=== PATIENT | male | born 1965 | race Caucasian/White ===

== ENCOUNTER 2022-05-04 14:17 | Outpatient (REF) | payer MEDICARE, MEDICAID, SELFPAY ==
[2022-05-04 14:41] LABS: Basophils Absolute Auto 0.04 K/uL (0.00-0.30); Basophils Percent Auto 0.6 % (0.0-3.0); Eosinophils Absolute Auto 0.15 K/uL (0.00-0.50); Eosinophils Percent Auto 2.4 % (0.0-7.0); Hematocrit 49.6 % (37.0-53.0); Hemoglobin* 16.7 gm/dL (13.5-17.5); Immature Granulocytes Abs Auto 0.01 K/uL (0.00-0.30); Immature Granulocytes Pct Auto 0.2 %; Lymphocytes Absolute Auto 1.73 K/uL (0.90-2.90); Lymphocytes Percent Auto 27.8 % (20-44); Mean Corpuscular HGB Conc 34 gm/dL (32-36); Mean Corpuscular Hemoglobin 29 pg (26-34); Mean Corpuscular Volume 87 fL (80-100); Monocytes Percent Auto 7.1 % (0.0-11.0); Neutrophils Absolute Auto 3.85 K/uL (1.7-7.0); Neutrophils Percent Auto 61.9 % (42.0-72.0); Platelet Count* 177 K/uL (140-440); RDW Coefficient of Variation % 14.1 % (11.5-15.5); Red Blood Count 5.69 m/uL (4.30-5.90); White Blood Count* 6.22 K/uL (4.50-11.00)
[2022-05-04 14:53] LABS: Slide Review Reflex No
[2022-05-04 15:16] LABS: Chloride* 98 mmol/L (96-114); Potassium* 5.1 mmol/L (3.6-5.1); Sodium* 132 mmol/L (135-149)
[2022-05-04 15:19] LABS: Blood Urea Nitrogen* 31 mg/dL (7-30); Carbon Dioxide* 25 mmol/L (20-32); Creatinine* 1.1 mg/dL (0.5-1.5); Estimated Glomerular Filt Rate 79 ml/min
[2022-05-04 15:20] LABS: Calcium* 9.3 mg/dL (8.4-10.6); Magnesium* 1.6 mg/dL (1.5-2.6)
[2022-05-04 15:27] LABS: Glucose* 408 mg/dL (60-115)
[2022-05-04 15:49] LABS: INR 2.05 (0.91-1.10); Prothrombin Time 24.2 Seconds
== END 2022-05-04 14:18 | disposition home or self-care (01) ==
LOC: NPINS 14:17
PROVIDERS: PCP Family Medicine
DX: E66.01 Morbid (severe) obesity due to excess calories (principal); E11.40 Type 2 diabetes mellitus with diabetic neuropathy, unspecified; I50.9 Heart failure, unspecified; J44.9 Chronic obstructive pulmonary disease, unspecified
CPT/HCPCS: 80048; 83735; 85025; 85610

== ENCOUNTER 2022-12-29 10:33 | Emergency (ER) | payer MEDICARE, MEDICAID, SELFPAY ==
[2022-12-29 11:07] VITALS: PULSE 74; RESP 22; TEMP 35.7; O2SAT 96; BMI 41.1
--- NOTE | 2022-12-29 11:42 | CRLHL7_ITS ---
For Patients: As a result of the Century Cures Act, medical imaging exams and procedure reports are released immediately into your electronic medical record. You may view this report before your referring provider. If you have questions, please contact your health care provider. INDICATION: Vomiting, abdominal pain, renal insufficiency. History of hernia repair and implanted heart pump. TECHNIQUE: CT of the abdomen and pelvis without intravenous contrast. Coronal and sagittal reconstructions. COMPARISON: None. FINDINGS: Small left hepatic cyst. Probable focal fatty infiltration about the falciform ligament. Calcified splenic granulomas. Cholelithiasis without evidence of gallbladder inflammation. No biliary dilation. The unenhanced pancreas and adrenal glands are normal in appearance. Small bilateral renal hypodensities are likely cysts. No hydronephrosis or ureteral dilation. No obstructing urinary calculi identified. The bladder is normal in appearance. Nonenlarged prostate gland. No small bowel dilation. Mild amount of stool throughout the colon. Negative appendix. No intraperitoneal free air or fluid. No lymphadenopathy. Aortoiliac vascular calcifications. Status post ventral hernia repair. Cardiomegaly. Partially visualized left ventricular assist device which causes streak artifact in the upper abdomen. Calcified granulomas right lower lobe. The lung bases are otherwise clear. Degenerative changes of the spine. Minimal retrolisthesis of L2 on L3, L3 on L4, L4 on L5, and L5 on S1. Chronic appearing anterior wedging of multiple lower thoracic vertebral bodies. IMPRESSION: 1. No acute findings in the abdomen or pelvis on this noncontrast exam. 2. Cholelithiasis. 3. Cardiomegaly. Please note that all CT scans at this facility use dose modulation, iterative reconstruction, and/or weight-based dosing when appropriate to reduce radiation dose to as low as reasonably achievable. Dictated by Lulu Stevenson MD @ 12/29/2022 2:37:32 PM (Electronically Signed)
--- NOTE | 2022-12-29 11:50 | ED_ITS ---
HPI - General Adult General Chief complaint: Nausea/Vomiting Stated complaint: Vomiting, weak Time Seen by Provider: 12/29/22 11:24 History of Present Illness HPI narrative: This is a 57-year-old male with a complex past medical history. He has cardiomyopathy (probably ischemic cardiomyopathy?) With LVAD. LVAD was placed several months ago at [facility]. He is on a waiting list for heart transplant. He also has type 2 diabetes with peripheral neuropathy, chronic kidney disease, he previous stroke, GERD, elevated BMI, history of coronary disease with AK, sleep apnea, restless legs, COPD, hypertension, hyperlipidemia, chronic low back pain. He has been sick for about 7-10 days. Symptoms have been predominantly nausea and vomiting. He has also had some generalized abdominal pain. Symptoms started middle of last week. He does know what brought them on. No associated diarrhea. In fact he has not had a bowel movement since perhaps 4 days ago. That BM was ?black? but not bloody. He has not had any subsequent BMs or bloody output from his rectum. He has been getting sicker as the days go by. It has gotten to the point where he is not able to take most of his prescription meds. He says he thinks he is able to keep the warfarin down. He has not been able to keep much fluid down. He has not had a fever. No cough. He is mildly weak. No new chest pain or new shortness of breath. No new swelling in his legs. His LVAD appears to be functioning normally. No signs of infection around the LVAD catheter line. He was seen in the ER in [facility] last week on 12/22. Labs there included Sodium 140, potassium 4.8, chloride 100, bicarb 25, BUN 26, creatinine 1.7, glucose 226 Lipase 17, bilirubin 0.9, ALT 16, AST 17 INR 3.0 BNP 239 WBC 8.8, hemoglobin 19.1, platelet count 127 He was discharged home from [place]. Since discharge he has been getting worse. He has had more repetitive retching and vomiting. He has not been able to eat drink much for the past few days. He has not been able to take his meds in perhaps 3 days. He thinks he has possibly been able to swallow the warfarin. He finally came into the ER today with his FREIGHT SORTER and his mother because of ongoing vomiting. He somewhat dizzy and lightheaded. They are concerned he is having worsening dehydration. Related Data Home Medications Medication Instructions Recorded Confirmed aspirin 81 mg tablet,delayed 81 mg PO QDAY 02/10/22 08/10/22 release Home Oxygen 03/20/22 11/02/22 potassium chloride 10 mEq 30 meq PO BID 03/20/22 11/02/22 capsule,extended release warfarin 1 mg tablet 5 mg PO QDAY 03/20/22 11/02/22 dapagliflozin propanediol 10 mg 10 mg PO QAM 04/24/22 08/10/22 tablet (Farxiga) metolazone 5 mg tablet 5 mg PO QDAY 05/04/22 11/02/22 amiodarone 200 mg tablet 400 mg PO QDAY 08/10/22 08/10/22 lorazepam 1 mg tablet 1 - 2 mg PO BID PRN sleep 08/10/22 11/02/22 torsemide 20 mg tablet 40 mg PO BID 08/10/22 11/02/22 ammonium lactate 12 % lotion topical 11/02/22 11/02/22 carvedilol 25 mg tablet 25 mg PO BID 11/02/22 11/02/22 rosuvastatin 20 mg tablet 20 mg PO QPM 11/02/22 11/02/22 sacubitril 97 mg-valsartan 103 mg 1 tab PO BID 11/02/22 11/02/22 tablet (Entresto) Previous Rx's Medication Instructions Recorded omeprazole 20 mg capsule,delayed 20 mg PO QDAY #90 caps 10/25/21 release pen needle, diabetic 31 gauge x #400 ea 06/06/2208/29 (BD Ultra-Fine Short Pen Needle) gabapentin 300 mg capsule 900 mg (3 x 300 mg) PO TID #270 08/10/22 caps insulin aspart U-100 100 unit/mL 16 unit (0.16 mL) subcut TID #45 mL 08/10/22 (3 mL) subcutaneous pen (Novolog FlexPen U-100 Insulin aspart) semaglutide 0.25 mg or 0.5 mg (2 0.25 mg (0.4 mL) subcut QWEEK #3 mL 08/10/22 mg/3 mL) subcutaneous pen injector (Ozempic) spironolactone 25 mg tablet 12.5 mg (1/2 x 25 mg) PO QDAY #45 09/06/22 tabs insulin glargine 100 unit/mL (3 60 unit (0.6 mL) subcut QHS #60 mL 10/04/22 mL) subcutaneous pen (Lantus Solostar U-100 Insulin) albuterol sulfate 90 mcg/actuation 2 puff inhalation Q4H PRN 10/09/22 aerosol inhaler shortness of breath or wheezing #6.7 grams trazodone 100 mg tablet 200 - 300 mg (2 - 3 x 100 mg) PO 10/09/22 QHS PRN sleep #90 tabs hydrocodone 10 mg-acetaminophen 1 tab PO Q4H PRN pain #150 tabs 12/07/22 325 mg tablet Allergies Allergy/AdvReac Type Severity Reaction Status Date / Time clonidine Allergy Severe Cardiac Verified 11/02/22 08:50 Arrest procaine Allergy Severe Swelling Verified 11/02/22 08:50 of Lip/Tongue/Throat [facility] Medical History (Updated 12/29/22 @ 13:49 by Rafael Reyes MD) Onychomycosis ?B35.1 - Tinea unguium (ICD-10) LVAD (left ventricular assist device) present ?Z95.811 - Presence of heart assist device (ICD-10) Infarction of testicle ?N50.1 - Vascular disorders of male genital organs (ICD-10) History of AK (myocardial infarction) ?I25.2 - Old myocardial infarction (ICD-10) Dilated cardiomyopathy ?I42.0 - Dilated cardiomyopathy (ICD-10) Morbid obesity with BMI of 40.0-44.9, adult ?E66.01 - Morbid (severe) obesity due to excess calories (ICD-10) ?Z68.41 - Body mass index [BMI] 40.0-44.9, adult (ICD-10) Ascending aorta dilatation ?I77.810 - Thoracic aortic ectasia (ICD-10) Ischemic cerebrovascular accident (CVA) (03/11/21) ?I63.9 - Cerebral infarction, unspecified (ICD-10) Diabetic neuropathy ?E11.40 - Type 2 diabetes mellitus with diabetic neuropathy, unspecified (ICD-10) History of adenomatous polyp of colon ?Z86.010 - Personal history of colonic polyps (ICD-10) Primary aldosteronism ?E26.09 - Other primary hyperaldosteronism (ICD-10) Macular degeneration ?H35.30 - Unspecified macular degeneration (ICD-10) Idiopathic ventricular tachycardia ?I47.2 - Ventricular tachycardia (ICD-10) History of deep vein thrombosis (DVT) of lower extremity (03/25/20) ?Z86.718 - Personal history of other venous thrombosis and embolism (ICD-10) SALOMÓN (generalized anxiety disorder) ?F41.1 - Generalized anxiety disorder (ICD-10) GERD (gastroesophageal reflux disease) ?K21.9 - Gastro-esophageal reflux disease without esophagitis (ICD-10) RLS (restless legs syndrome) ?G25.81 - Restless legs syndrome (ICD-10) ASCVD (arteriosclerotic cardiovascular disease) ?I25.10 - Atherosclerotic heart disease of [place] coronary artery without angina pectoris (ICD-10) BRYANT (obstructive sleep apnea) ?G47.33 - Obstructive sleep apnea (adult) (pediatric) (ICD-10) COPD (chronic obstructive pulmonary disease) ?J44.9 - Chronic obstructive pulmonary disease, unspecified (ICD-10) Hyperlipidemia ?E78.5 - Hyperlipidemia, unspecified (ICD-10) Hypertension ?I10 - Essential (primary) hypertension (ICD-10) Insomnia ?G47.00 - Insomnia, unspecified (ICD-10) Type 2 diabetes mellitus ?E11.9 - Type 2 diabetes mellitus without complications (ICD-10) CHF (congestive heart failure) ?I50.9 - Heart failure, unspecified (ICD-10) Chronic low back pain ?M54.50 - Low back pain, unspecified (ICD-10) ?G89.29 - Other chronic pain (ICD-10) Surgical History (Updated 12/01/21 @ 15:02 by Rupali Dee) History of cardiac catheterization ?Z98.890 - Other specified postprocedural states (ICD-10) History of umbilical hernia repair (01/24/17) ?Z98.890 - Other specified postprocedural states (ICD-10) ?Z87.19 - Personal history of other diseases of the digestive system (ICD-10) History of implantable cardioverter-defibrillator (ICD) placement (10/03/18) ?Z95.810 - Presence of automatic (implantable) cardiac defibrillator (ICD-10) History of arthroscopy of left shoulder ?Z98.890 - Other specified postprocedural states (ICD-10) History of open reduction and internal fixation (ORIF) procedure ?Z98.890 - Other specified postprocedural states (ICD-10) History of arthroscopic knee surgery ?Z98.890 - Other specified postprocedural states (ICD-10) Family History (Updated 12/01/21 @ 15:16 by Rupali Dee) Father Diabetes Lung cancer Coronary artery disease Sister Diabetes Mother High blood pressure GERD (gastroesophageal reflux disease) Social History (Updated 05/04/22 @ 22:54 by Luciano Candelaria MD) Narrative: . 2 children.1/2 ppd smoker. No EtOH. Smoking Status: Current some day smoker What tobacco products do you use: cigarettes How often do you have a drink containing alcohol: never AUDIT-C Alcohol total score: 0 Non-prescribed substance use: denies use Little interest or pleasure in doing things: not at all Feeling down, depressed, or hopeless: not at all Exam Narrative: Exam Narrative: Constitutional: Appears well-developed and well-nourished. Alert. Conversant. looks uncomfortable, retching, but not vomiting. HENT: Head: Atraumatic. Nose: Nose normal. Mouth/Throat: Oral mucosa is clear but dry. no trismus. Pharynx normal. Tonsils symmetric. No tonsillar enlargement, erythema, or exudate. Eyes: Conjunctivae normal. EOM normal. Pupils equal, round, and reactive to light. No scleral icterus. Neck: Normal range of motion. Neck supple. No tracheal deviation present. Cardiovascular: Normal rate, regular rhythm. Audible LVAD home with stethoscope. His catheter is located in the regi Xiphoid region. Skin on the catheter looks good. No gallop. No friction rub. No murmur heard. Symmetric radial artery pulses Pulmonary/Chest: Effort normal. No stridor. No respiratory distress. No wheezes. No rales. No rhonchi . No tenderness. Abdominal: Soft. Bowel sounds normal. No distension. No mass. Diffuse tenderness. No rebound. No guarding. Non tympanic. Healed periumbilical scar from umbilical hernia repair. No palpable hernia. Musculoskeletal: RUE: Normal range of motion. No tenderness. No deformity LUE: Normal range of motion. No tenderness. No deformity RLE: Normal range of motion. 1+ edema. No tenderness. No deformity LLE: Normal range of motion. 1+ edema. No tenderness. No deformity Lymph: No cervical adenopathy. Neurological: Alert and oriented to person, place, and time. Normal strength. CN II-VII intact. No sensory deficit. GCS eye subscore is 4. GCS verbal subscore is 5. GCS motor subscore is 6. Normal coordination Skin: Skin is warm and dry. No rash noted. No pallor. Normal capillary refill. Psychiatric: Normal mood. Normal affect. Const: Vital Signs, click to edit/add: Vital Signs - 24 hr 12/29/22 11:07 Temperature 96.2 F L Pulse Rate [Pulse Oximeter] 74 Respiratory Rate 22 Pulse Oximetry 96 Oxygen Delivery Me thod Room Air Course Vital Signs Vital signs: Initial Vital Signs Temperature 96.2 F L 12/29/22 11:07 Temperature Source Temporal Artery Scan 12/29/22 11:07 Pulse Rate 74 12/29/22 11:07 Respiratory Rate 22 12/29/22 11:07 Pulse Oximetry 96 12/29/22 11:07 Oxygen Delivery Method Room Air 12/29/22 11:07 Vital Signs Temperature 96.2 F L 12/29/22 11:07 Pulse Rate 74 12/29/22 11:07 Respiratory Rate 22 12/29/22 11:07 Pulse Oximetry 96 12/29/22 11:07 Oxygen Delivery Method Room Air 12/29/22 11:07 Temperature 96.2 F L 12/29/22 11:07 Pulse Rate 74 12/29/22 11:07 Respiratory Rate 22 12/29/22 11:07 Pulse Oximetry 96 12/29/22 11:07 Oxygen Delivery Method Room Air 12/29/22 11:07 Medical Decision Making [facility] Narrative Medical decision making narrative: 57-year-old male with a complex past history and current LVAD implanted presents to the ER today with about 10 days of nausea and vomiting and 3 days of protracted retching and vomiting without ability to stay hydrated or take any of his meds. 1. Renal. Despite reported nausea and vomiting, he does not have any acute kidney injury. Potassium normal. Creatinine is actually come down compared to last week. Was 1.7, now 1.2. 2. Endocrine. Blood sugar elevated at 213. Anion gap normal. Bicarb normal. No evidence for DKA or nonketotic hyperosmolar syndrome causing vomiting. 3. Hepatic. LFTs normal. Lipase normal. Alcohol negative. 4. Cardiac. Does have known LVAD. Troponin minimally detectable at 0.06. No active chest pain. BNP is abnormal at 3250. No hypoxia or shortness of breath at this time. No clear signs of heart failure. Discussed with LVAD service and heart failure specialist, Dr. Ray. They would agree with appropriately aggressive IV hydration based on clinical presentation. No risk to adequate IV fluids, even a few L, if necessary. 1 L IV fluid bolus administered here in the ER. 5. Gi. With protracted vomiting and diffuse pain, differential would include gastritis, gastroparesis, also surgical pathology such as bowel obstruction, perforation, abscess, among others. I ordered a CT scan abdomen pelvis for further evaluation. Initially ordered a noncontrast with concern that he would likely have an acute kidney injury. Noncontrast CT was pending formal i nterpretation the time of this dictation. 6. Heme. INR pending at the time this dictation. Hemoglobin is elevated at approximately 19. Suspect hemoconcentration from dehydration. I discussed with the heart failure team from [facility] and with the heart failure specialist, Dr. Ray. They agree with this patient's protracted nausea and vomiting, inability to take his meds he will need to be admitted. His LVAD could not reasonably be managed here at [place] [facility] agree with the plan to transfer to [place]. Lab Data Labs: Lab Results 12/29/22 Range/Units 12:38 WBC 8.65 (4.50-11.00) K/uL RBC 6.43 H (4.30-5.90) m/uL Hgb 18.9 H (13.5-17.5) gm/dL Hct 56.1 H (37.0-53.0) % MCV 87 (80-100) fL MCH 29 (26-34) pg MCHC 34 (32-36) gm/dL RDW Coeff of Mireya 16.5 H (11.5-15.5) % Plt Count 147 (140-440) K/uL Neut % (Auto) 73.2 H (42.0-72.0) % Lymph % (Auto) 17.8 L (20-44) % [place] % (Auto) 7.4 (0.0-11.0) % Eos % (Auto) 0.8 (0.0-7.0) % Baso % (Auto) 0.7 (0.0-3.0) % Neut # (Auto) 6.30 (1.7-7.0) K/uL Lymph # (Auto) 1.50 (0.90-2.90) K/uL [place] # (Auto) 0.60 (0.00-0.90) K/UL Eos # (Auto) 0.07 (0.00-0.50) K/uL Baso # (Auto) 0.06 (0.00-0.30) K/uL Abs Immat Gran (auto) 0.01 (0.00-0.30) K/uL Imm/Tot Granulo (auto) 0.1 % Sodium 137 (135-149) mmol/L Potassium 4.6 (3.6-5.1) mmol/L Chloride 101 (96-114) mmol/L Carbon Dioxide 23 (20-32) mmol/L Anion Gap 13 (7-15) mEq/L BUN 21 (7-30) mg/dL Creatinine 1.2 (0.5-1.5) mg/dL Estimated Creat Clear 78.97 Estimated GFR 71 ml/min Glucose 213 H (60-115) mg/dL Lactate 2.1 H (0.5-1.9) mmol/L Calcium 10.0 (8.4-10.6) mg/dL Total Bilirubin 1.4 (0.1-1.5) mg/dL AST 31 (12-35) U/L ALT 24 (4-50) U/L Alkaline Phosphatase 91 (40-150) U/L Troponin I 0.06 H* (0.01-0.04) ng/mL NT-Pro-B Natriuret Pep 3350 pg/mL Total Protein 7.2 (6.0-8.3) g/dL Albumin 4.4 (3.3-5.0) g/dL Lipase 73 (23-300) U/L Ethyl Alcohol < 0.01 L (0.01-0.03) % Discharge Plan Discharge Clinical Impression: Acute dehydration, Nausea & vomiting, Abdominal pain Prescriptions: No Action aspirin 81 mg tablet,delayed release (DR/EC) 81 mg PO QDAY potassium chloride 10 mEq capsule, extended release 30 meq PO BID warfarin 1 mg tablet 5 mg PO QDAY Rx Instructions: 5 mg S,M,T,Th,F,Sat Wed 4 mg lorazepam 1 mg tablet 1 - 2 mg PO BID PRN (Reason: sleep) Rx Instructions: take 1-2 mg by mouth 2 times daily if needed for Anxiety. Typically 1 mg in the AM and 2 mg in the evening (DME) Home Oxygen Misc See Rx Instructions .Route Rx Instructions: 4 liters HS Farxiga 10 mg tablet 10 mg PO QAM metolazone 5 mg tablet 5 mg PO QDAY amiodarone 200 mg tablet 400 mg PO QDAY insulin aspart U-100 [Novolog FlexPen U-100 Insulin] 100 unit/mL (3 mL) insulin pen 16 unit subcut TID Qty: 45 3RF gabapentin 300 mg capsule 900 mg PO TID Qty: 270 2RF Ozempic 0.25 mg or 0.5 mg (2 mg/3 mL) pen injector 0.25 mg subcut QWEEK Qty: 3 1RF Rx Instructions: for 4 weeks then increase to 0.5 mg rosuvastatin 20 mg tablet 20 mg PO QPM ammonium lactate 12 % lotion topical carvedilol 25 mg tablet 25 mg PO BID Rx Instructions: must administer with a meal/food Entresto 97-103 mg tablet 1 tab PO BID omeprazole 20 mg capsule,delayed release(DR/EC) 20 mg PO QDAY Qty: 90 2RF (DME) pen needle, diabetic [BD Ultra-Fine Short Pen Needle] 31 gauge x 5/16 needle See Rx Instructions .Route Qty: 400 1RF Rx Instructions: Use QID torsemide 20 mg tablet 40 mg PO BID spironolactone 25 mg tablet 12.5 mg PO QDAY Qty: 45 3RF insulin glargine [Lantus Solostar U-100 Insulin] 100 unit/mL (3 mL) insulin pen 60 unit subcut QHS Qty: 60 3RF albuterol sulfate 90 mcg/actuation HFA aerosol inhaler 2 puff inhalation Q4H PRN (Reason: shortness of breath or wheezing) Qty: 6.7 8RF trazodone 100 mg tablet 200 - 300 mg PO QHS PRN (Reason: sleep) Qty: 90 11RF hydrocodone-acetaminophen 10-325 mg tablet 1 tab PO Q4H PRN (Reason: pain) Qty: 150 0RF Follow Up/Referrals: Luciano Candelaria MD [Primary Care Provider] -
--- NOTE | 2022-12-29 12:05 | PC.NURSE ---
Patient changed LVAD batteries.
--- NOTE | 2022-12-29 12:07 | PC.NURSE ---
Clinical Investigator unsuccessful with IV start. Patient is requesting US guided placement d/t history of difficult starts. Clinical Investigator did get flash, but unable to advance catheter and the vein on the R forearm blew. Anesthesia called for assistance in IV placement.
[2022-12-29 12:45] LABS: Lactate* 2.1 mmol/L (0.5-1.9)
[2022-12-29] MEDS: 0.9 % SODIUM CHLORIDE 1000 ml 1,000 ML IV (12:45)
[2022-12-29 12:47] LABS: Basophils Absolute Auto 0.06 K/uL (0.00-0.30); Basophils Percent Auto 0.7 % (0.0-3.0); Eosinophils Absolute Auto 0.07 K/uL (0.00-0.50); Eosinophils Percent Auto 0.8 % (0.0-7.0); Hematocrit 56.1 % (37.0-53.0); Hemoglobin* 18.9 gm/dL (13.5-17.5); Immature Granulocytes Abs Auto 0.01 K/uL (0.00-0.30); Immature Granulocytes Pct Auto 0.1 %; Lymphocytes Percent Auto 17.8 % (20-44); Mean Corpuscular HGB Conc 34 gm/dL (32-36); Mean Corpuscular Hemoglobin 29 pg (26-34); Mean Corpuscular Volume 87 fL (80-100); Monocytes Percent Auto 7.4 % (0.0-11.0); Neutrophils Percent Auto 73.2 % (42.0-72.0); Platelet Count* 147 K/uL (140-440); RDW Coefficient of Variation % 16.5 % (11.5-15.5); Red Blood Count 6.43 m/uL (4.30-5.90); White Blood Count* 8.65 K/uL (4.50-11.00)
[2022-12-29] MEDS: ONDANSETRON 2 MG/ML inj 4 MG IVP (12:47)
[2022-12-29 12:48] LABS: Slide Review Reflex No
[2022-12-29 13:02] LABS: Albumin* 4.4 g/dL (3.3-5.0)
[2022-12-29 13:03] LABS: Chloride* 101 mmol/L (96-114); Potassium* 4.6 mmol/L (3.6-5.1); Sodium* 137 mmol/L (135-149)
[2022-12-29 13:05] LABS: Anion Gap 13 mEq/L (7-15); Aspartate Amino Transferase* 31 U/L (12-35); Bilirubin Total* 1.4 mg/dL (0.1-1.5); Carbon Dioxide* 23 mmol/L (20-32); Creatinine* 1.2 mg/dL (0.5-1.5); Est. Creatinine Clearance* 78.97; Estimated Glomerular Filt Rate 71 ml/min
[2022-12-29 13:06] LABS: Alanine Aminotransferase* 24 U/L (4-50); Alkaline Phosphatase* 91 U/L (40-150); Blood Urea Nitrogen* 21 mg/dL (7-30); Glucose* 213 mg/dL (60-115); Lipase* 73 U/L (23-300); Total Protein* 7.2 g/dL (6.0-8.3)
--- OUTSIDE RECORDS SUMMARY | 2022-12-29 13:06 | XMS_ITS ---
Author Name Unknown Address [address] [place] [address] Phone [facility] da Address [address] [place] [address] Phone Care Team Providers Care Forestry Instructor Name Role Phone Unavailable Unavailable Unavailable Plan of Treatment No Plan of Treatment Recorded Assessments Includes: Assessments for all patient encounters No Assessments Recorded Medical Equipment - Implanted Devices Includes: Current and historical Devices No Medical Equipment Recorded Medications Administered Includes: Administered Medications in patient's chart No Administered Medications Recorded Results Includes: Results from 12/29/2021 through 12/29/2022 No Results Recorded For Specified Dates History of Present Illness History of Present Illness not supported for this document type No History of Present Illness Recorded Social History No Social History Recorded - Smoking Status Unknown Medical History Includes: Medical History in patient's chart No Medical History Recorded Family History Includes: Family History in patient's chart No Family History Recorded Review of Systems Review of Systems not supported for this document type No Review of Systems Recorded Mental Status No Mental Status Recorded Functional Status No Functional Status Recorded Physical Exam Physical Exam not supported for this document type No Physical Exam Recorded Insurance Includes: Active Insurance Policies Plan Name Member ID Group # Subscriber Relationship Effect stewart Dates 1 - MEDICARE [id number] GREGG Tinsley HEADLINE Self Clinical Notes Includes: Signed Clinical Notes starting from 03/24/2022 No Clinical Notes Recorded
--- OUTSIDE RECORDS SUMMARY | 2022-12-29 13:06 | XMS_ITS ---
Care Plan - [facility] Created on: December 29, 2022 HEADLINE, GREGG Tinsley : 1965 Sex: Male Author Name Unknown Address [address] [place] [address] Phone [facility] da Address [address] [place] [address] Phone Care Team Providers Care Salesforce Specialist Name Role Phone Unavailable Unavailable Unavailable
[2022-12-29 13:22] LABS: Ethanol* < 0.01 % (0.01-0.03); NT Pro B Type NatriureticPept* 3350 pg/mL; Troponin I* 0.06 ng/mL (0.01-0.04)
--- NOTE | 2022-12-29 13:23 | PC.NURSE ---
Lab called with critical troponin 0.06, Dr. Reyes made aware.
[2022-12-29 14:00] VITALS: PULSE 80; RESP 18; TEMP 36.2; O2SAT 96
--- NOTE | 2022-12-29 14:00 | PC.NURSE ---
Report to Past[facility] NICHOLAS. EMS called for transport, currently awaiting ambulance.
[2022-12-29 14:10] LABS: Appearance Urine Clear (Clear); Bilirubin Urine 1+ (Negative); Blood Urine 3+ (Negative); Color Urine Yellow (Yellow); Glucose Urine 3+ (Negative); Ketones Urine 2+ (Negative); Leukocyte Esterase Urine Negative (Negative); Nitrite Urine Negative (Negative); Protein Urine 3+ (Negative); Specific Gravity Urine 1.025 (1.000-1.030); pH Urine 7.5 (5.0-8.5)
[2022-12-29 14:16] LABS: RBC Urine 50-100 (0-2); Squamous Epithelial Cell Urine Few (None-Few); WBC Urine 0-2 (0-5)
[2022-12-29 14:38] LABS: INR 3.27 (0.91-1.10); Prothrombin Time 34.9 Seconds
--- NOTE | 2022-12-29 15:38 | PC.NURSE ---
Patient left via EMS to [facility]. Bag with LVAD supplies with patient.
== END 2022-12-29 15:41 | disposition short-term general hospital (02) ==
LOC: ED 13:04
PROVIDERS: Emergency Provider Emergency Medicine; PCP Family Medicine
DX: E86.0 Dehydration (principal); R11.2 Nausea with vomiting, unspecified; R10.9 Unspecified abdominal pain
CPT/HCPCS: 36415; 74176; 80053; 81001; 82077; 83605; 83690; 83880; 84484; 85025; 85610; 93005; 96361; 96374; 99283; 99285; J2405; J7030

== ENCOUNTER 2022-12-29 15:33 | Outpatient (CLI) | payer MEDICARE, MEDICAID, SELFPAY ==
--- OUTSIDE RECORDS SUMMARY | 2022-12-30 18:42 | XMS_ITS ---
Care Plan - [facility] Created on: December 30, 2022 HEADLINE, GREGG Tinsley : 1965 Sex: Male Author Name Unknown Address [address] [place] [address] Phone [facility] da Address [address] [place] [address] Phone Care Team Providers Care Risk Prevention Engineer Name Role Phone Unavailable Unavailable Unavailable
--- OUTSIDE RECORDS SUMMARY | 2022-12-30 18:42 | XMS_ITS ---
Author Name Unknown Address [address] [place] [address] Phone [facility] da Address [address] [place] [address] Phone Care Team Providers Care Lead Programmer Analyst Name Role Phone Unavailable Unavailable Unavailable Plan of Treatment No Plan of Treatment Recorded Assessments Includes: Assessments for all patient encounters No Assessments Recorded Medical Equipment - Implanted Devices Includes: Current and historical Devices No Medical Equipment Recorded Medications Administered Includes: Administered Medications in patient's chart No Administered Medications Recorded Results Includes: Results from 12/30/2021 through 12/30/2022 No Results Recorded For Specified Dates History [...] Relationship Effect stewart Dates 1 - MEDICARE [id number] GREGG Tinsley HEADLINE Self Clinical Notes Includes: Signed Clinical Notes starting from 03/24/2022 No Clinical Notes Recorded
== END 2022-12-29 15:34 | disposition home or self-care (01) ==
LOC: AMB 12-30 18:41
PROVIDERS: PCP Family Medicine; Visit Provider Emergency Medicine
DX: R11.2 Nausea with vomiting, unspecified (principal); Z95.811 Presence of heart assist device
CPT/HCPCS: A0425; A0427

== ENCOUNTER 2023-02-14 13:48 | Outpatient (CLI) | payer MEDICARE, MEDICAID, SELFPAY ==
--- OUTSIDE RECORDS SUMMARY | 2023-02-14 13:51 | XMS_ITS ---
Care Plan - [facility] Created on: February 14, 2023 HEADLINE, GREGG Tinsley : 1965 Sex: Male Author Name Unknown Address [address] [place] [address] Phone [facility] da Address [address] [place] [address] Phone Care Team Providers Care Land Agent Name Role Phone Unavailable Unavailable Unavailable
--- OUTSIDE RECORDS SUMMARY | 2023-02-14 13:51 | XMS_ITS ---
Author Name Unknown Address [address] [place] [address] Phone [facility] da Address [address] [place] [address] Phone Care Team Providers Care Manager University Name Role Phone Unavailable Unavailable Unavailable Plan of Treatment No Plan of Treatment Recorded Assessments Includes: Assessments for all patient encounters No Assessments Recorded Medical Equipment - Implanted Devices Includes: Current and historical Devices No Medical Equipment Recorded Medications Administered Includes: Administered Medications in patient's chart No Administered Medications Recorded Results Includes: Results from 02/14/2022 through 02/14/2023 No Results Recorded For Specified Dates History [...] Relationship Effect stewart Dates 1 - MEDICARE [id number] GREGG Tinsley HEADLINE Self Clinical Notes Includes: Signed Clinical Notes starting from 03/24/2022 No Clinical Notes Recorded
== END 2023-02-14 13:49 | disposition home or self-care (01) ==
LOC: WOUND 13:49
PROVIDERS: PCP Family Medicine; Visit Provider Family Medicine
DX: I87.312 Chronic venous hypertension (idiopathic) with ulcer of left lower extremity (principal); L97.222 Non-pressure chronic ulcer of left calf with fat layer exposed; E11.40 Type 2 diabetes mellitus with diabetic neuropathy, unspecified; Z79.4 Long term (current) use of insulin; I25.5 Ischemic cardiomyopathy; Z95.811 Presence of heart assist device
CPT/HCPCS: 99215

== ENCOUNTER 2023-02-21 15:16 | Outpatient (CLI) | payer MEDICARE, MEDICAID, SELFPAY | END 2023-02-21 15:17 | disposition home or self-care (01) | LOC: WOUND 15:17 | PROVIDERS: PCP Family Medicine; Visit Provider Surgery | DX: I87.312 Chronic venous hypertension (idiopathic) with ulcer of left lower extremity (principal); L97.822 Non-pressure chronic ulcer of other part of left lower leg with fat layer exposed; E11.40 Type 2 diabetes mellitus with diabetic neuropathy, unspecified; Z79.4 Long term (current) use of insulin; Z95.811 Presence of heart assist device | CPT/HCPCS: 99213 ==

== ENCOUNTER 2023-02-28 15:06 | Outpatient (CLI) | payer MEDICARE, MEDICAID, SELFPAY ==
--- OUTSIDE RECORDS SUMMARY | 2023-02-28 15:08 | XMS_ITS ---
Care Plan - [facility] Created on: February 28, 2023 HEADLINE, GREGG Tinsley : 1965 Sex: Male Author Name Unknown Address [address] [place] [address] Phone [facility] da Address [address] [place] [address] Phone Care Team Providers Care Body Fitter Name Role Phone Unavailable Unavailable Unavailable
--- OUTSIDE RECORDS SUMMARY | 2023-02-28 15:08 | XMS_ITS ---
Author Name Unknown Address [address] [place] [address] Phone [facility] da Address [address] [place] [address] Phone Care Team Providers Care Certified Prosthetist Vice President Name Role Phone Unavailable Unavailable Unavailable Plan of Treatment No Plan of Treatment Recorded Assessments Includes: Assessments for all patient encounters No Assessments Recorded Medical Equipment - Implanted Devices Includes: Current and historical Devices No Medical Equipment Recorded Medications Administered Includes: Administered Medications in patient's chart No Administered Medications Recorded Results Includes: Results from 02/28/2022 through 02/28/2023 No Results Recorded For Specified Dates History [...] Relationship Effect stewart Dates 1 - MEDICARE [id number] GREGG Tinsley HEADLINE Self Clinical Notes Includes: Signed Clinical Notes starting from 03/24/2022 No Clinical Notes Recorded
== END 2023-02-28 15:07 | disposition home or self-care (01) ==
PROVIDERS: PCP Family Medicine; Visit Provider Surgery
DX: I87.312 Chronic venous hypertension (idiopathic) with ulcer of left lower extremity (principal); L97.222 Non-pressure chronic ulcer of left calf with fat layer exposed; E11.65 Type 2 diabetes mellitus with hyperglycemia; E11.40 Type 2 diabetes mellitus with diabetic neuropathy, unspecified; I42.0 Dilated cardiomyopathy; Z95.811 Presence of heart assist device; Z79.4 Long term (current) use of insulin; Z72.0 Tobacco use
CPT/HCPCS: 99213

== ENCOUNTER 2023-03-14 14:57 | Outpatient (CLI) | payer MEDICARE, MEDICAID, SELFPAY ==
--- OUTSIDE RECORDS SUMMARY | 2023-03-14 14:59 | XMS_ITS ---
Care Plan - [facility] Created on: March 14, 2023 HEADLINE, GREGG Tinsley : 1965 Sex: Male Author Name Unknown Address [address] [place] [address] Phone [facility] da Address [address] [place] [address] Phone Care Team Providers Care Application Packaging Consultant Name Role Phone Unavailable Unavailable Unavailable
--- OUTSIDE RECORDS SUMMARY | 2023-03-14 14:59 | XMS_ITS ---
Author Name Unknown Address [address] [place] [address] Phone [facility] da Address [address] [place] [address] Phone Care Team Providers Care Surgery Teacher Name Role Phone Unavailable Unavailable Unavailable Plan of Treatment No Plan of Treatment Recorded Assessments Includes: Assessments for all patient encounters No Assessments Recorded Medical Equipment - Implanted Devices Includes: Current and historical Devices No Medical Equipment Recorded Medications Administered Includes: Administered Medications in patient's chart No Administered Medications Recorded Results Includes: Results from 03/14/2022 through 03/14/2023 No Results Recorded For Specified Dates History [...] Relationship Effect stewart Dates 1 - MEDICARE [id number] GREGG Tinsley HEADLINE Self Clinical Notes Includes: Signed Clinical Notes starting from 03/24/2022 No Clinical Notes Recorded
== END 2023-03-14 14:58 | disposition home or self-care (01) ==
LOC: WOUND 14:57
PROVIDERS: PCP Family Medicine; Visit Provider Surgery
DX: I87.312 Chronic venous hypertension (idiopathic) with ulcer of left lower extremity (principal); L97.812 Non-pressure chronic ulcer of other part of right lower leg with fat layer exposed; I42.0 Dilated cardiomyopathy; E11.40 Type 2 diabetes mellitus with diabetic neuropathy, unspecified; Z95.811 Presence of heart assist device; Z79.4 Long term (current) use of insulin; Z72.0 Tobacco use
CPT/HCPCS: 99213

== ENCOUNTER 2023-03-21 13:55 | Outpatient (CLI) | payer MEDICARE, MEDICAID, SELFPAY ==
--- OUTSIDE RECORDS SUMMARY | 2023-03-21 13:58 | XMS_ITS ---
Care Plan - [facility] Created on: March 21, 2023 HEADLINE, GREGG Tinsley : 1965 Sex: Male Author Name Unknown Address [address] [place] [address] Phone [facility] da Address [address] [place] [address] Phone Care Team Providers Care Car Inspector Name Role Phone Unavailable Unavailable Unavailable
--- OUTSIDE RECORDS SUMMARY | 2023-03-21 13:58 | XMS_ITS ---
Author Name Unknown Address [address] [place] [address] Phone [facility] da Address [address] [place] [address] Phone Care Team Providers Care Scout Leaser Name Role Phone Unavailable Unavailable Unavailable Plan of Treatment No Plan of Treatment Recorded Assessments Includes: Assessments for all patient encounters No Assessments Recorded Medical Equipment - Implanted Devices Includes: Current and historical Devices No Medical Equipment Recorded Medications Administered Includes: Administered Medications in patient's chart No Administered Medications Recorded Results Includes: Results from 03/21/2022 through 03/21/2023 No Results Recorded For Specified Dates History [...] Relationship Effect stewart Dates 1 - MEDICARE [id number] GREGG Tinsley HEADLINE Self Clinical Notes Includes: Signed Clinical Notes starting from 03/24/2022 No Clinical Notes Recorded
== END 2023-03-21 13:56 | disposition home or self-care (01) ==
LOC: WOUND 13:55
PROVIDERS: PCP Family Medicine; Visit Provider Surgery
DX: I87.312 Chronic venous hypertension (idiopathic) with ulcer of left lower extremity (principal); L97.828 Non-pressure chronic ulcer of other part of left lower leg with other specified severity; E11.40 Type 2 diabetes mellitus with diabetic neuropathy, unspecified; I25.5 Ischemic cardiomyopathy; Z95.811 Presence of heart assist device; Z79.4 Long term (current) use of insulin
CPT/HCPCS: 87070; 87186; 97597

== ENCOUNTER 2023-03-28 15:07 | Outpatient (CLI) | payer MEDICARE, MEDICAID, SELFPAY ==
--- OUTSIDE RECORDS SUMMARY | 2023-03-28 15:09 | XMS_ITS ---
Author Name Unknown Address [address] [place] [address] [facility] [place] Address [address] [place] [address] Phone Care Team Providers Care Delimber Operator Name Role Phone Unavailable Unavailable Unavailable Plan of Treatment No Plan of Treatment Recorded Assessments Includes: Assessments for all patient encounters No Assessments Recorded Medical Equipment - Implanted Devices Includes: Current and historical Devices No Medical Equipment Recorded Medications Administered Includes: Administered Medications in patient's chart No Administered Medications Recorded Results Includes: Results from 03/28/2022 through 03/28/2023 No Results Recorded For Specified Dates History [...] Relationship Effect stewart Dates 1 - MEDICARE [id number] GREGG Tinsley HEADLINE Self Clinical Notes Includes: Signed Clinical Notes starting from 03/24/2022 No Clinical Notes Recorded
--- OUTSIDE RECORDS SUMMARY | 2023-03-28 15:09 | XMS_ITS ---
Care Plan - [facility] Created on: March 28, 2023 HEADLINE, GREGG Tinsley : 1965 Sex: Male Author Name Unknown Address [address] [place] [address] Phone [facility] da Address [address] [place] [address] Phone Care Team Providers Care Parachute Folder Name Role Phone Unavailable Unavailable Unavailable
== END 2023-03-28 15:08 | disposition home or self-care (01) ==
LOC: WOUND 15:07
PROVIDERS: PCP Family Medicine; Visit Provider Surgery
DX: I87.312 Chronic venous hypertension (idiopathic) with ulcer of left lower extremity (principal); L97.828 Non-pressure chronic ulcer of other part of left lower leg with other specified severity; L08.89 Other specified local infections of the skin and subcutaneous tissue; B96.89 Other specified bacterial agents as the cause of diseases classified elsewhere; E11.40 Type 2 diabetes mellitus with diabetic neuropathy, unspecified; Z79.01 Long term (current) use of anticoagulants; Z95.811 Presence of heart assist device; Z79.4 Long term (current) use of insulin
CPT/HCPCS: 97597

== ENCOUNTER 2023-04-04 14:27 | Outpatient (CLI) | payer MEDICARE, MEDICAID, SELFPAY ==
--- OUTSIDE RECORDS SUMMARY | 2023-04-04 14:54 | XMS_ITS ---
Author Name Unknown Address [address] [place] [address] Phone [facility] da Address [address] [place] [address] Phone Care Team Providers Care Duralumin Metalworker Name Role Phone Unavailable Unavailable Unavailable Plan of Treatment No Plan of Treatment Recorded Assessments Includes: Assessments for all patient encounters No Assessments Recorded Medical Equipment - Implanted Devices Includes: Current and historical Devices No Medical Equipment Recorded Medications Administered Includes: Administered Medications in patient's chart No Administered Medications Recorded Results Includes: Results from 04/04/2022 through 04/04/2023 No Results Recorded For Specified Dates History [...] Relationship Effect stewart Dates 1 - MEDICARE [id number] GREGG Tinsley HEADLINE Self Clinical Notes Includes: Signed Clinical Notes starting from 03/24/2022 No Clinical Notes Recorded
--- OUTSIDE RECORDS SUMMARY | 2023-04-04 14:54 | XMS_ITS ---
Care Plan - [facility] Created on: April 04, 2023 HEADLINE, GREGG Tinsley : 1965 Sex: Male Author Name Unknown Address [address] [place] [address] Phone [facility] da Address [address] [place] [address] Phone Care Team Providers Care Manager Risk Management Name Role Phone Unavailable Unavailable Unavailable
== END 2023-04-04 14:28 | disposition home or self-care (01) ==
LOC: WOUND 14:27
PROVIDERS: PCP Family Medicine; Visit Provider Surgery
DX: I87.312 Chronic venous hypertension (idiopathic) with ulcer of left lower extremity (principal); L97.828 Non-pressure chronic ulcer of other part of left lower leg with other specified severity
CPT/HCPCS: 97597

== ENCOUNTER 2023-04-11 13:41 | Outpatient (CLI) | payer MEDICARE, MEDICAID, SELFPAY | END 2023-04-11 15:00 | disposition home or self-care (01) | LOC: WOUND 04-17 13:41 | PROVIDERS: PCP Family Medicine; Visit Provider Surgery | DX: I87.312 Chronic venous hypertension (idiopathic) with ulcer of left lower extremity (principal); L97.828 Non-pressure chronic ulcer of other part of left lower leg with other specified severity; E11.40 Type 2 diabetes mellitus with diabetic neuropathy, unspecified; I42.0 Dilated cardiomyopathy; Z79.4 Long term (current) use of insulin; Z95.811 Presence of heart assist device; Z79.01 Long term (current) use of anticoagulants | CPT/HCPCS: 97597 ==

== ENCOUNTER 2023-04-18 15:05 | Outpatient (CLI) | payer MEDICARE, MEDICAID, SELFPAY | END 2023-04-18 15:06 | disposition home or self-care (01) | LOC: WOUND 15:05 | PROVIDERS: PCP Family Medicine; Visit Provider Surgery | DX: I87.312 Chronic venous hypertension (idiopathic) with ulcer of left lower extremity (principal); L97.828 Non-pressure chronic ulcer of other part of left lower leg with other specified severity; E11.40 Type 2 diabetes mellitus with diabetic neuropathy, unspecified; Z79.4 Long term (current) use of insulin | CPT/HCPCS: 97597 ==

== ENCOUNTER 2023-04-25 13:11 | Outpatient (CLI) | payer MEDICARE, MEDICAID, SELFPAY ==
--- OUTSIDE RECORDS SUMMARY | 2023-04-25 13:21 | XMS_ITS ---
Care Plan - [facility] Created on: April 25, 2023 HEADLINE, GREGG Tinsley : 1965 Sex: Male Author Name Unknown Address [address] [place] [address] Phone [facility] da Address [address] [place] [address] Phone Care Team Providers Care Die Maker Stamping Name Role Phone Unavailable Unavailable Unavailable
--- OUTSIDE RECORDS SUMMARY | 2023-04-25 13:21 | XMS_ITS | Clinical Summary ---
Author Name Unknown Organization [employer] [facility] Address [place], [place] [address] Care Team Providers Care District Superintendent Name Role Phone Luciano Candelaria MD Primary Care Provider + Tania Mike MD Unavailable [phone] Huang Brady MD Unavailable [phone] Coordinators, Vad Unavailable [phone] Staff, Other Clinical Unavailable Unavailabl e Allergies Active Allergy Reactions Criticality Noted Date Comments Clonidine Cardiac Arrest 10/19/2014 Procaine Throat Swelling/Closing,Ton laith Swelling High 01/01/2019 Has tolerated SQ lidocaine for procedures (RHC) Unlisted Allergen (Include Detail In Comments) Other - Describe In Comment Field Low 07/07/2021 Seasonal allergies - Runny nose, itchy eyes/red eye. Medications Medication Sig Dispensed Refills Start Date End Date Status oxygen-air delivery systems (HOME OXYGEN)Indication s:Chronic obstructive pulmonary disease, unspecified COPD type (HC) Oxygen for home use. Liters per minute: 2L per nasal cannula. Frequency of use: Nocturnal;. Length of need: 99 Months. 1 Device 0 11/28/19 18 Active metOLazone (ZAROXOLYN) 5 mg tabletIndications :Systolic congestive heart failure, unspecified HF chronicity (HC) Take 1 Tablet (5 mg) by mouth one time if needed. ONLY TAKE DIRECTED PER LVAD TEAM. 0 02/09/20 22 Active Lantus Solostar U-100 Insulin 100 unit/mL (3 mL) pen Inject 50 units subcutaneous before bedtime. Product desired: LANTUS SOLOSTAR 0 Active LORazepam (ATIVAN) 1 mg tablet Take 1-2 mg by mouth 2 times daily if needed for Anxiety. Typically 1 mg in the am and 2 mg in the evening 0 Active insulin aspart, U-100, (NOVOLOG FLEXPEN) 100 unit/mL (3 mL) pen Inject subcutaneous. Inject 16 units subcutaneous three times daily with meals. Plus sliding scale: 1 unit for every 50 mg/dL over 150 mg/dL on blood sugar reading 0 Active potassium chloride (MICRO-K) 10 mEq Controlled-releas e capsuleIndication s:LVAD (left ventricular assist device) present (HC) Take an extra 3 capsules (30 mEq) ONLY on days you take metolazone. 30 Capsule 1 05/05/19 23 Active omeprazole (PRILOSEC) 20 mg Delayed-Release capsuleIndication s:Chronic GERD Take 1 Capsule (20 mg) by mouth once daily before a meal. 90 Capsule 1 05/25/19 23 Active dapagliflozin (Farxiga) 10 mg tabletIndications :Type 2 diabetes mellitus without complication, with long-term current use of insulin (HC),Heart failure, unspecified HF chronicity, unspecified heart failure type (HC) Take 1 Tablet (10 mg) by mouth once daily. 90 Tablet 3 06/27/19 23 Active rosuvastatin (CRESTOR) 20 mg tabletIndications :Type 2 diabetes mellitus with stage 1 chronic kidney disease, with long-term current use of insulin (HC) Take 1 Tablet (20 mg) by mouth once daily. 90 Tablet 3 07/13/19 23 Active carvediloL (Coreg) 25 mg tabletIndications :Chronic combined systolic (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) Take 1 Tablet (25 mg) by mouth two times daily. 180 Tablet 3 09/10/19 23 Active ammonium lactate 12% topical (LACHYDRIN) 12 % lotionIndications :Dry skin,Fissure in skin of both feet,Type 2 diabetes mellitus with diabetic polyneuropathy, with long-term current use of insulin (HC) Apply topically to affected area(s) two times daily. 396 g 5 09/21/19 23 Active spironolactone (ALDACTONE) 25 mg tabletIndications :Chronic combined systolic (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) Take 1 Tablet (25 mg) by mouth once daily. 90 Tablet 3 12/26/19 Active traZODone (DESYREL) 100 mg tablet Take 300 mg by mouth at bedtime. 0 Active acetaminophen (TYLENOL) 325 mg tabletIndications :Pain Take 2 Tablets (650 mg) by mouth every 6 hours if needed for Pain (For Mild Pain). Max acetaminophen dose: 4000mg in 24 hrs. 0 01/01/20 Active nicotine 21 mg/24 hr (NICODERM; HABITROL) 21 mg/24 hr patchIndications: Tobacco abuse Apply 1 Patch on dry, clean, hairless skin once daily. 30 Patch 1 01/02/20 Active sacubitril-valsar stone (ENTRESTO 97 MG-103 MG TABLET) 97-103 mg tabletIndications :Chronic combined systolic (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) Take 1 Tablet by mouth two times daily. 180 Tablet 3 03/05/20 Active morphine CONTROLLED RELEASE (MS CONTIN) 60 mg tablet Take 1 Tablet (60 mg) by mouth every 12 hours. 60 Tablet 0 03/05/20 Active prochlorperazine (COMPAZINE) 10 mg tablet Take 1 Tablet (10 mg) by mouth every 8 hours if needed for Nausea/Vomiting. 0 03/05/20 Active amLODIPine (NORVASC) 2.5 mg tabletIndications :HTN (hypertension) Take 1 Tablet (2.5 mg) by mouth once daily. 30 Tablet 3 03/08/20 23 Active torsemide (DEMADEX) 20 mg tabletIndications :Chronic combined systolic (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) Take 2 Tablets (40 mg) by mouth once daily. 180 Tablet 3 03/08/20 23 Active amiodarone (CORDARONE) 200 mg tabletIndications :Atrial fibrillation status post cardioversion (HC) Take 1 tablet by mouth once daily 90 Tablet 0 04/11/20 23 Active warfarin (COUMADIN) 1 mg tabletIndications :LVAD (left ventricular assist device) present (HC) Take 4 mg by mouth on Sunday/Sunday/ Sunday and 3 mg all other days. 360 Tablet 3 04/20/19 24 Active amiodarone (CORDARONE) 200 mg tabletIndications :Atrial fibrillation status post cardioversion (HC) Take 1 Tablet (200 mg) by mouth once daily. 90 Tablet 2 03/07/20 23 023 Discontinued warfarin (COUMADIN) 1 mg tabletIndications :LVAD (left ventricular assist device) present (HC) Take 3 tablets (3 mg) by mouth daily 450 Tablet 3 03/09/20 23 023 Discontinued(Re order (E-cancel not sent)) warfarin (COUMADIN) 1 mg tabletIndications :LVAD (left ventricular assist device) present (HC) Take 4 mg Sunday/Sunday and 3 mg all other days. 0 03/30/20 23 024 Discontinued(*M edication adjustment) Active Problems Problem Noted Date Diagnosed Date Non-healing wound of lower extremity 03/06/2023 Leg pain, anterior, left 03/06/2023 Leg erythema 03/06/2023 Unspecified open wound, left lower leg, initial encounter 03/05/2023 Polycythemia 12/31/2022 Nausea vomiting and diarrhea 12/29/2022 Thrombocytopenia 12/29/2022 Elevated hemoglobin 12/29/2022 Peripheral neuropathy 04/27/2022 LVAD (left ventricular assist device) present Overview: s/p HeartMate 3 LVAD Implant via sternotomy, off pump on 01/05/22 as halfway use CV Surgeon: Dr. Huang Brady Primary HF/VAD Graduate School Dean: Dr. Tania Mike Primary VAD Coordinator: VAD EMERGENCY Referring MD: Leland PAD Goal <28 01/03/2021 Overview: CardioMEMs device implanted on 12/31/20. Primary dye box operator is Dr. Mike . CardioMEMs is MRI safe. Please see FYI section for more information. COPD exacerbation 11/11/2020 Pulmonary hypertension 05/06/2020 Bundle branch block, left 05/06/2020 Overview: Intrinsic QRS 172 ms. Deep vein thrombosis (DVT) of right lower extrem ity 03/25/2020 Overview: Superficial femoral vein on U/S 03/25/20. non-occlusive Congestive heart failure 01/11/2020 Acute on chronic systolic CHF (congestive heart failure) 12/23/2019 CHF exacerbation 12/23/2019 Patient's intentional underd osing of medication regimen due to financial hardship 12/23/2019 Chest pain in adult 07/23/2019 Hyponatremia 07/23/2019 Hyperglycemia 07/23/2019 Albuminuria 11/08/2018 Idiopathic ventricular tachycardia 10/07/2018 Presence of other cardiac implants and grafts Acute on chronic respiratory failure with hypoxi a 09/30/2018 Panic disorder 08/20/2018 Anxiety 08/20/2018 Chronic renal insufficiency, stage III (moderate ) 10/29/2017 Chronic pain syndrome 10/24/2017 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 2 diabete s mellitus 05/08/2016 Overview: DM2 Neuropathy Chronic systolic heart failure 01/18/2015 Overview: Overview: Congestive Heart Failure (CHF) Systolic Chronic Chronic combined systolic (c ongestive) and diastolic (congestive) heart failure 01/18/2015 Overview: LVEF 29%. Congestive Heart Failure (CHF) Systolic Chronic HTN (hypertension) 01/13/2015 Primary aldosteronism 08/08/2013 Overview: Hyperaldosteronism Primary Obstructive sleep apnea syndrome 04/05/2009 Morbid obesity 04/05/2009 Type 2 diabetes mellitus, wi th long-term current use of insulin Chronic back pain Hyperlipidemia Tobacco use COPD (chronic obstructive pulmonary disease) Overview: uses CPAP ASCVD (arteriosclerotic cardiovascular disease) Cardiogenic shock Resolved Problems Problem Noted Date Diagnosed Date Resolved Date SHANTI (acute kidney injury) 09/02/2018 Hypertensive urgency 09/01/2018 020 Bradycardia 08/20/2018 07/23/2019 Overview: Coreg dose was decreased by Dr. Epstein. Acute systolic (congestive) heart failure 08/14/2018 07/23/2019 Hypertensive urgency 04/23/2018 019 Hypertensive emergency 10/24/201707/16 Acute on chronic systolic co ngestive heart failure 10/24/2017 07/16/2018 Acute on chronic systolic co ngestive heart failure 09/02/2017 07/16/2018 Chest pain in adult 09/02/2017 07/23/19 20 Shortness of breath 09/02/2017 07/17/19 19 Pneumonia, organism unspecified(486) 01/13/2015 09/02/2017 Chronic back pain 12/11/2014 Chronic back pain 12/11/2014 Obesity 09/02/2017 Congestive heart failure 05/2018 Coronary heart disease 07/16 Renal failure 09/02/2017 Encounters Date Type Department Care Team Description 04/20/2023 Telephone [facility] [address] [place] [phone] Tina Tellez, RN Anticoagulation (INR 1.8) 04/11/2023 Refill [facility] [address] [place] [phone] 11 Rafael Bunch MD Refill Request (Amiodarone) 04/06/2023 Telephone [facility] [address] [place] [address] Tina Tellez, RN Anticoagulation (INR 2.1) 04/05/2023 Orders Only [facility] Scanner 1 scan: (1-Ord) INCOMING RECORDS-LABS, [facility], 04/05/2023 04/05/2023 Transcribe Orders [facility] [address] [place], [place] [phone] Lilliam Tesfaye MD 03/30/2023 Telephone [facility] [address] [phone] Tesha Parr RN Anticoagulation (INR 1.8) 03/23/2023 Telephone [facility] [address] [phone] Jeni Godoy RN Anticoagulation (INR 1.8) 03/16/2023 Telephone [facility] [address] [phone] Jeni Godoy RN Anticoagulation (INR 2) 03/13/2023 Orders Only [facility] [address] [phone] Tania Mike MD <No scans attached> 03/12/2023 Telephone [facility] [address] [phone] Tina Tellez RN Anticoagulation (INR 2.0) 03/09/2023 Telephone [facility] [address] [phone] Yary Christian RN Anticoagulation (INR 2.0) 03/05/2023 1:33 PM RAILROAD PURCHASING AGENT - 03/07/2023 3:42 PM RAILROAD PURCHASING AGENT Hospital Encounter [facility] [address] [place] [address] Lorri Gaines MD [place], Barry McLeod, MD HTN (hypertension) (Primary Dx); Diabetic ulcer of left talamantes (HC); LVAD (left ventricular assist device) present (HC); Atrial fibrillation status post cardioversion (HC); Chronic combined systolic (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); Unspecified open wound, left lower leg, initial encounter Discharge Disposition: Home Health 03/05/2023 10:00 AM RAILROAD PURCHASING AGENT Office Visit [facility] [address] [facility] [address] [place] [phone] Dale Bar MD LVAD 03/05/2023 9:30 AM RAILROAD PURCHASING AGENT Orders Only [facility] [address] [facility] [address] [place] [phone] Lab 03/05/2023 Office Visit [facility] [address] [phone] Angy Pavon, PharmD Medication Management 03/05/2023 Travel 03/02/2023 Telephone [facility] [address] [phone] Tina Tellez RN Anticoagulation (INR 2.6) 03/02/2023 Orders Only [facility] [address] [phone] Dale Bar MD <No scans attached> 02/23/2023 Telephone [facility] [address] [phone] Tina Tellez RN Anticoagulation (INR 2.0) 02/16/2023 10:50 AM CDT Orders Only [address] [phone] Lab, [facility] 02/16/2023 Telephone [facility] [address] [phone] Jeni Godoy RN Anticoagulation (INR 2.1) 02/16/2023 Travel 02/13/2023 Telephone [facility] [address] [phone] Jeni Godoy RN Anticoagulation (INR 3.9) 02/12/2023 5:38 PM CDT - 02/12/2023 8:[address] [facility] Emergency Department [address] [place] [address] Jeni Parra MD Leg wound, left, initial encounter (Primary Dx); Nausea and vomiting, unspecified vomiting type Discharge Disposition: Home Self Care 02/12/2023 Travel 01/29/2023 10:00 AM CDT Orders Only [facility] [address] [place] [phone] Lab, [facility] 01/29/2023 Telephone [facility] [address] [facility] [address] [place] [phone] Jeni Godoy RN Anticoagulation (INR 2.4) 01/29/2023 Travel from Last 3 Months Family History Medical History Relation Name Comments Diabetes Father Heart Disease Father Lung cancer Father mets to brain LEANDRO disease Mother Hypertension Mother Relation Name Status Comments Father Mother Alive Sister Emily Alive Social History Tobacco Use Types Packs/Day Years Used Date Smoking Tobacco: Every Day Cigarettes 1 31 Started: 01/02/1992; Last attempted to quit: 12/2021 Smokeless Tobacco: Former Quit: 04/16/2012 Tobacco Cessation:Ready to Q uit: Not Asked; Counseling Given: Not Answered Alcohol Use Standard Drinks/Week Comments No 0 (1 standard drink = 0.6 oz pur e alcohol) quit 2002 Social Connections Answer Date Recorded Frequency of Communication with Friends and Fami ly 0 03/06/2023 Financial Resource Strain Answer Date R ecorded Difficulty of Paying Living Expenses 3 03/06/2023 Difficulty of Paying Living Expenses Not on file 03/06/2023 Food Insecurity Answer Date Recorded Worried About Running Out of Food in the Last Ye ar 1 03/06/2023 Transportation Needs Answer Date Record ed Lack of Transportation (Medical) 1 03/06/2023 Housing Stability Answer Date Recorded Unable to Pay for Housing in the Last Year 1 03/06/2023 Sex and Gender Information Value Date Recorded Sex Assigned at Not on file Gender Identity Not on file Sexual Orientation Not on file Obstetrics History Last Filed Vital Signs Vital Sign Reading Time Taken Comments Blood Pressure 124/104 06/26/2022 12:00 PM CDT Pulse 85 03/07/2023 1:00 PM RAILROAD PURCHASING AGENT Temperature 36.8 ??C (98.2 ??F) 03/07/2023 8:50 AM CS T Respiratory Rate 20 03/07/2023 1:00 PM RAILROAD PURCHASING AGENT Oxygen Saturation 95% 03/06/2023 11:00 PM RAILROAD PURCHASING AGENT Inhaled Oxygen Concentration - - Weight 133.6 kg (294 lb 8 oz) 03/07/2023 6:00 AM RAILROAD PURCHASING AGENT Height 188 cm (6' 2) 03/07/2023 6:00 AM RAILROAD PURCHASING AGENT Body Mass Index 37.81 03/07/2023 6:00 AM RAILROAD PURCHASING AGENT Plan of Treatment Upcoming Encounters Date Type Department Care Team (Late st Contact Info) Description 05/14/2023 10:00 AM RAILROAD PURCHASING AGENT Office Visit [facility] [address] [facility] [address] [place] [phone] Dale Bar MD [address] [place] [address] 07/04/2023 Cardiac Device Check [facility] [phone] Health Maintenance Due Date Last Done Comments Hepatitis B series for Diabe chirag (1 of 3 - 3-dose series) 1965 Pneumococcal series for age 6-64 (1 of 2 - PCV) 11/04/1971 Tdap 1976 Depression screening for age 12+ 1977 Tetanus booster 1985 Zoster (shingles) series for age 50+ (1 of 2) 11/04/2015 COVID-19 vaccine series ( season) 2022 07/24/2020, 07/03/2020 Influenza for age 50-64 12/15/2022 BMI (ht and wt on same day) for age 18+ 09/21/2023 09/20/2022, 08/25/2022, 07/12/2022, Additional history exists Lipids for age 45-75 01/16/2028 01/15/2023, 10/20/2022, 10/03/2021, Additional history exists Colonoscopy through age 75 01/03/2032 01/02/2022, HIV for age 15-65 Completed 10/03/2021 Hepatitis C screening for ag e 18-79 Completed 10/03/2021 Medical Devices Implanted Type Area Infection Preventionist Device Identifier Shelf Expiration Date Model / Serial / Lot Cardiomems-12/31 Implanted:12/31 (Quantity not on file) CardioMEMS [id number] - [id number] Implanted:Qty: 1 on 01/24/2017 by Richie Watkins MD at [facility] [employer] 08/11/2018 [id number] / / [id number] Description:Ventralex ST Her sebastian Patch Pump Lvad Heartmate 3 Kit - [id number], [id number] Implanted:Qty: 1 on 01/05/2022 by Huang Brady MD at [facility] N/A: Heart [employer] 02/18/2023 [id number] / [id number] , [id number] / Procedures Procedure Name Priority Date/Time Associated Diagnosis Comments SCAN CORRESP-LABORATORY RESULTS 04/05/2023 12:00 AM RAILROAD PURCHASING AGENT GLUCOSE METER Timed 03/07/2023 1:01 PM RAILROAD PURCHASING AGENT GLUCOSE METER Timed 03/07/2023 7:33 AM RAILROAD PURCHASING AGENT MAGNESIUM SOLANGE 03/07/2023 4:42 AM RAILROAD PURCHASING AGENT CBC WITH AUTO DIFFERENTIAL Early AM 03/07/2023 4:42 AM RAILROAD PURCHASING AGENT PROTIME-INR Early AM 03/07/2023 4:42 AM RAILROAD PURCHASING AGENT BASIC METABOLIC PANEL Early AM 03/07/2023 4:42 AM RAILROAD PURCHASING AGENT CBC WITH AUTO DIFFERENTIAL Early AM 03/07/2023 4:42 AM RAILROAD PURCHASING AGENT GLUCOSE METER Timed 03/06/2023 9:30 PM RAILROAD PURCHASING AGENT SCAN-CARDIAC STRIP 03/06/2023 7: 11 PM RAILROAD PURCHASING AGENT AEROBIC BACTERIAL CULTURE, STAIN Today 03/06/2023 6:53 PM RAILROAD PURCHASING AGENT GLUCOSE METER Timed 03/06/2023 6:30 PM RAILROAD PURCHAS[employer]ENT CT LOWER EXTREMITY LEFT W Routine 03/06/2023 6:20 PM RAILROAD PURCHASING AGENT GLUCOSE METER Timed 03/06/2023 11:22 AM RAILROAD PURCHASING AGENT GLUCOSE METER Timed 03/06/2023 7:23 AM RAILROAD PURCHASING AGENT MAGNESIUM SOLANGE 03/06/2023 4:54 AM RAILROAD PURCHASING AGENT CBC WITH AUTO DIFFERENTIAL Early AM 03/06/2023 4:54 AM RAILROAD PURCHASING AGENT PROTIME-INR Early AM 03/06/2023 4:54 AM RAILROAD PURCHASING AGENT BASIC METABOLIC PANEL Early AM 03/06/2023 4:54 AM RAILROAD PURCHASING AGENT CBC WITH AUTO DIFFERENTIAL Early AM 03/06/2023 4:54 AM RAILROAD PURCHASING AGENT GLUCOSE METER Timed 03/05/2023 9:50 PM RAILROAD PURCHASING AGENT SCAN-CARDIAC STRIP 03/05/2023 7: 29 PM RAILROAD PURCHASING AGENT GLUCOSE METER Timed 03/05/2023 5:20 PM RAILROAD PURCHASING AGENT PROTIME-INR Early AM 03/05/2023 3:46 PM RAILROAD PURCHASING AGENT BASIC METABOLIC PANEL SOLANGE 03/05/2023 3:46 PM RAILROAD PURCHASING AGENT XR TIBIA AND FIBULA 2 VIEWS LEFT PORTABLE Routine 03/05/2023 3:25 PM RAILROAD PURCHASING AGENT COVID-19 MOLECULAR Today 03/05/2023 3: 23 PM RAILROAD PURCHASING AGENT ECHO TTE LIMITED WO CONTRAST W COLOR W LTD DOPPLER Routine 03/05/2023 12:45 PM RAILROAD PURCHASING AGENT LVAD (left ventricular assist device) present (HC) XR TIBIA AND FIBULA 2 VIEWS LEFT SOLANGE 03/05/2023 10:52 AM RAILROAD PURCHASING AGENT Diabetic ulcer of left talamantes (HC) BLOOD CULTURE Routine 03/05/2023 9:40 AM RAILROAD PURCHASING AGENT Wound infection CBC WITH AUTO DIFFERENTIAL Routine 03/05/2023 9:40 AM RAILROAD PURCHASING AGENT Chronic combined systolic (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) BLOOD CULTURE Routine 03/05/2023 9:40 AM RAILROAD PURCHASING AGENT Wound infection PRO-BNP Routine 03/05/2023 9:40 AM RAILROAD PURCHASING AGENT Chronic combined systolic (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) FERRITIN Routine 03/05/2023 9:40 AM RAILROAD PURCHASING AGENT Iron deficiency IRON PLUS IRON BINDING CAP Routine 03/05/2023 9:40 AM RAILROAD PURCHASING AGENT Iron deficiency BASIC METABOLIC PANEL Routine 03/05/2023 9:40 AM RAILROAD PURCHASING AGENT Chronic combined systolic (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) PROTIME-INR Routine 03/05/2023 9:40 AM RAILROAD PURCHASING AGENT LVAD (left ventricular assist device) present (HC) HEPATIC FUNCTION PANEL Routine 03/05/2023 9:40 AM RAILROAD PURCHASING AGENT Chronic combined systolic (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) MAGNESIUM Routine 03/05/2023 9:40 AM RAILROAD PURCHASING AGENT Chronic combined systolic (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) CBC WITH AUTO DIFFERENTIAL Routine 03/05/2023 9:40 AM RAILROAD PURCHASING AGENT Chronic combined systolic (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) PROTIME-INR Routine 02/16/2023 10:51 AM CDT LVAD (left ventricular assist device) present (HC) XR TIBIA AND FIBULA 2 VIEWS LEFT STAT 02/12/2023 6:59 PM CDT LACTATE SCREEN VENOUS ISTAT W ROMERO Timed 02/12/2023 6:17 PM CDT LACTATE SCREEN VENOUS ISTAT W ROMERO STAT 02/12/2023 6:11 PM CDT BLOOD CULTURE STAT 02/12/2023 5:59 PM CDT LACTATE VENOUS SOLANGE 02/12/2023 5:57 PM CDT CBC WITH AUTO DIFFERENTIAL STAT 02/12/2023 5:57 PM CDT EXTRA TUBE ROMERO ON ICE STAT 02/12/2023 5:57 PM CDT PROTIME-INR STAT 02/12/2023 5:57 PM CDT COMP METABOLIC PANEL STAT 02/12/2023 5:57 PM CDT BLOOD CULTURE STAT 02/12/2023 5:57 PM CDT CBC WITH AUTO DIFFERENTIAL STAT 02/12/2023 5:57 PM CDT ISTAT LACTATE SCREEN VENOUS STAT 02/12/2023 5:57 PM CDT PROTIME-INR Routine 01/29/2023 10:05 AM CDT LVAD (left ventricular assist device) present (HC) from Last 3 Months Results * SCAN CORRESP-LABORATORY RESULTS (04/05/2023 12:00 AM RAILROAD PURCHASING AGENT) Scanner OTHER * (ABNORMAL) GLUCOSE METER (03/07/2023 1:01 PM RAILROAD PURCHASING AGENT) Only the most recent of8 resultswithin the time period is included. [facility] GLUCOSE METER 153(H) 65 - 100 mg/dL 03/07/2023 1:05 PM RAILROAD PURCHASING AGENT [facility] Blood BLOOD SPECIMEN / Unknown 03/07/2023 1:01 PM RAILROAD PURCHASING AGENT 03/07/2023 1:05 PM RAILROAD PURCHASING AGENT Tania Mike MD CHEMISTRY [facility] [address] [place] [address], * (ABNORMAL) CBC WITH AUTO DIFFERENTIAL (03/07/2023 4:42 AM RAILROAD PURCHASING AGENT) Only the most recent of4 resultswithin the time period is included. WHITE BLOOD COUNT 8.3 4.5 - 11.0 thou/cu mm 03/07/2023 5:57 AM [facility] RED BLOOD COUNT 6.34(H) 4.30 - 5.90 mil/cu mm 03/07/2023 5:57 AM [facility] HEMOGLOBIN 18.7(H) 13.5 - 17.5 g/dL 03/07/2023 5:57 AM [facility] HEMATOCRIT 54.4(H) 37.0 - 53.0 % 03/07/2023 5:57 AM [facility] MCV 86 80 - 100 fL 03/07/2023 5:57 AM [facility] MCH 29.5 26.0 - 34.0 pg 03/07/2023 5:57 AM [facility] MCHC 34.4 32.0 - 36.0 g/dL 03/07/2023 5:57 AM [facility] RDW 15.3 11.5 - 15.5 % 03/07/2023 5:57 AM [facility] PLATELET COUNT 153 140 - 440 thou/cu mm 03/07/2023 5:57 AM [facility] MPV 10.2 6.5 - 11.0 fL 03/07/2023 5:57 AM [facility] NRBC 0.0 % 03/07/2023 5:57 AM [facility] ABS NRBC 0.0 thou /cu mm 03/07/2023 5:57 AM [facility] % NEUT 59.6 % 03/07/2023 5:57 AM [facility] % LYMPH 27.6 % 03/07/2023 5:57 AM [facility] % MONO 9.4 % 03/07/2023 5:57 AM [facility] [facility] % EOS 1.9 % 03/07/2023 5:57 AM [facility] TRAL LABORATORY % BASO 1.1 % 03/07/2023 5:57 AM [facility] TRAL LABORATORY % IMMATURE GRAN (METAS,MYELOS,[place] OS) 0.4 % 03/07/2023 5:57 AM [facility] LAB[facility]ATORY ABSOLUTE NEUTROPHILS 5.0 1.7 - 7.0 thou/cu mm 03/07/2023 5:57 AM [facility]AL LAB[facility] ABSOLUTE LYMPHOCYTES 2.3 0.9 - 2.9 thou/cu mm 03/07/2023 5:57 AM [facility] TRAL LAB[facility]ORY ABSOLUTE MONOCYTES 0.8 <0.9 thou/cu mm 03/07/2023 5:57 AM RAILROAD PURCHASING AGENT [facility] TRAL LABORATORY ABSOLUTE EOSINOPHILS 0.2 <0.5 thou/cu mm 03/07/2023 5:57 AM [facility]AL [facility] ABSOLUTE BASOPHILS 0.1 <0.3 thou/cu mm 03/07/2023 5:57 AM [facility] TRAL [facility]ORY ABSOLUTE IMMATURE GRANULOCYTES(MET ,MYELOS,PROS) 0.0 <0.3 thou/cu mm 03/07/2023 5:57 AM [facility] TRAL LABOR[facility]ORY Blood BLOOD SPECIMEN / Unknown Line/Port / Unknown 03/07/2023 4:42 AM RAILROAD PURCHASING AGENT 03/07/2023 5:50 AM RAILROAD PURCHASING AGENT Dale Bar MD HEMATOLOGY [facility] [address] [place] [address], * (ABNORMAL) Protime - INR (03/07/2023 4:42 AM RAILROAD PURCHASING AGENT) Only the most recent of7 resultswithin the time period is included. INR 2.4(H) <1.3 03/07/2023 6:18 AM RAILROAD PURCHASING AGENT [facility] PROTIME 26.4(H) 10.3 - 12.3 sec 03/07/2023 6:18 AM RAILROAD PURCHASING AGENT [facility] Blood BLOOD SPECIMEN / Unknown Line/Port / Unknown 03/07/2023 4:42 AM RAILROAD PURCHASING AGENT 03/07/2023 5:50 AM RAILROAD PURCHASING AGENT Narrative [facility] - 03/07/2023 6:18 AM RAILROAD PURCHASING AGENT ?Therapeutic Range 2.0-3.0 for most anticoagulated patients 2.5-3.5 or 4.0 for high risk patients The INR is only used for patients on stable oral anticoagulant therapy. It makes no significant contribution to the diagnosis or treatment of patients whose Protime is prolonged for other reasons. INR results are increased when heparin levels exceed 1.0 U/mL, which corresponds to an aPTT >125 seconds if the patient is on UFH. Dale Bar MD HEMATOLOGY Performing Organization Address [facility] Co de Phone Number [facility] [address] [place] [address], * MAGNESIUM (03/07/2023 4:42 AM RAILROAD PURCHASING AGENT) Only the most recent of3 resultswithin the time period is included. MAGNESIUM 1.8 1.6 - 2.6 mg/dL 03/07/2023 8:00 AM RAILROAD PURCHASING AGENT [facility] Blood BLOOD SPECIMEN / Unknown Line/Port / Unknown 03/07/2023 4:42 AM RAILROAD PURCHASING AGENT 03/07/2023 5:50 AM RAILROAD PURCHASING AGENT Tania Mike MD CHEMISTRY Performing Organization Address [facility] Co de Phone Number [facility] [address] [place] [address], * (ABNORMAL) BASIC METABOLIC PANEL (03/07/2023 4:42 AM RAILROAD PURCHASING AGENT) Only the most recent of4 resultswithin the time period is included. SODIUM 134(L) 136 - 145 mmol/L 03/07/2023 6:25 AM [facility] TRAL LABORATORY POTASSIUM 3.8 3.5 - 5.1 mmol/L 03/07/2023 6:25 AM [facility] CHLORIDE 95(L) 98 - 107 mmol/L 03/07/2023 6:25 AM [facility] CO2,TOTAL 25 22 - 29 mmol/L 03/07/2023 6:25 AM [facility] ANION GAP 14 5 - 18 03/07/2023 6:25 AM [facility] GLUCOSE 187(H) 70 - 99 mg/dL 03/07/2023 6:25 AM [facility] CALCIUM 9.3 8.6 - 10.0 mg/dL 03/07/2023 6:25 AM [facility] BUN 30(H) 6 - 20 mg/dL 03/07/2023 6:25 AM [facility] CREATININE 1.67(H) 0.70 - 1.20 mg/dL 03/07/2023 6:25 AM [facility] TRAL [facility] BUN/CREAT RATIO 18 10 - 20 6:25 AM [facility] TRAL LAB[facility]ATORY eGFR 47(L) >90 mL/min/1.7 3m2 03/07/2023 6:25 AM [facility] TRAL LABOR[facility]ORY Comment:As of 2021, eG FR is calculated by the CKD-EPI creatinine equation without race adjustment. ??eGFR can be influenced by muscle mass, exercise, and diet. ??The reported eGFR is an estimation only and is only applicable if the renal function is stable. Blood BLOOD SPECIMEN / Unknown Line/Port / Unknown 03/07/2023 4:42 AM RAILROAD PURCHASING AGENT 03/07/2023 5:50 AM [facility] Dale Bar MD [facility] [address] [place] [address], * SCAN-CARDIAC STRIP (03/06/2023 7:11 PM RAILROAD PURCHASING AGENT) Scanner OTHER * (ABNORMAL) AEROBIC BACTERIAL CULTURE, STAIN (03/06/2023 6:53 PM RAILROAD PURCHASING AGENT) CULTURE RESULT(A) 03/09/2023 10:37 AM RAILROAD PURCHASING AGENT [facility] CULTURE 1+ Enterobacter cloacae complex 03/09/2023 10:37 AM RAILROAD PURCHASING AGENT [facility] ENTRCT LABORATORY Comment: May develop resistance during prolonged therapy with 3rd-generation cephalosporins as a result of derepression of AmpC beta-lactamase. ??Therefore, isolates that are initially susceptible may become resistant within 3 to 4 days after initiation of therapy. ??Testing repeat isolates may be warranted. Oral cephalosporins are also not recommended. CULTURE 2+ Mixed inga present 03/09/2023 10:37 AM RAILROAD PURCHASING AGENT [facility] GRAM STAIN No PMNs 03/09/2023 10:37 AM RAILROAD PURCHASING AGENT [facility] ENTRCT LABOR[facility] GRAM STAIN 1+ Gram Positive Cocci 03/09/2023 10:37 AM RAILROAD PURCHASING AGENT [facility] GRAM STAIN No Epithelial cells 03/09/2023 10:37 AM RAILROAD PURCHASING AGENT [facility] ENTRAL LABORATORY GRAM STAIN No RBCs 03/09/2023 10:37 AM RAILROAD PURCHASING AGENT [facility] Other (Other) Non-Blood / Unknown 03/06/2023 6:53 PM RAILROAD PURCHASING AGENT 03/06/2023 6:59 PM RAILROAD PURCHASING AGENT Narrative [facility] - 03/09/2023 10:37 AM RAILROAD PURCHASING AGENT Mixed inga; No Staphylococcus aureus, beta-Streptococcus, Streptococcus pneumoniae, or Pseudomonas aeruginosa isolated. Organism Antibiotic Method Susceptibility Enterobacter cloacae complex TRIMETHOPRIM/SULF <=1/19: S Enterobacter cloacae complex CEFAZOLIN >=64: R Enterobacter cloacae complex GENTAMICIN <=1: S Enterobacter cloacae complex CEFTRIAXONE <=1: S Comment:see organism -specific comment above Enterobacter cloacae complex CEFTAZIDIME <=1: S Comment:see organism -specific comment above Enterobacter cloacae complex LEVOFLOXACIN <=0.12: S Enterobacter cloacae complex CIPROFLOXACIN <=0.25: S Enterobacter cloacae complex PIPERACILLIN/TAZO <=4: S Enterobacter cloacae complex CEFEPIME <=1: S Enterobacter cloacae complex TOBRAMYCIN <=1: S Enterobacter cloacae complex MEROPENEM <=0.25: S Alla Bruner NP MICROBIOLOGY [facility] [address] [place] [address], * CT LOWER EXTREMITY LEFT W (03/06/2023 6:20 PM RAILROAD PURCHASING AGENT) Anatomical Region Laterality Modality FEMUR L, KNEE L, ANKLE L, FOOT L Computed Tomography 03/07/2023 5:40 AM RAILROAD PURCHASING AGENT Impressions 03/07/2023 5:40 AM RAILROAD PURCHASING AGENT 1. Infiltration of the subcutaneous tissues of the left lower leg reflecting cellulitis and/or edema. 2. No localized fluid collection or tracking soft tissue gas. 3. No acute bone destruction to suggest osteomyelitis. Please note that all CT scans at this facility use dose modulation, iterative reconstruction, and/or weight-based dosing when appropriate to reduce radiation dose to as low as reasonably achievable. Dictated by Jesse Noland MD @ 03/07/2023 5:40:50 AM (Electronically Signed) Narrative 03/07/2023 5:40 AM RAILROAD PURCHASING AGENT For Patients: ??As a result of the Century Cures Act, medical imaging exams and procedure reports are released immediately into your electronic medical record. ??You may view this report before your referring provider. ??If you have questions, please contact your health care provider. HISTORY: Left anterior talamantes wound. TECHNIQUE: Intravenous contrast enhanced CT of the left lower leg. 100 mL Omnipaque 350 intravenous contrast was administered. COMPARISON: Radiographs 03/05/2023. FINDINGS: There is infiltration of the subcutaneous tissues of the left lower leg reflecting cellulitis and/or edema. There is no localized collection. No tracking soft tissue gas. No acute bone destruction to suggest osteomyelitis. No acute fracture. Procedure Note Jesse Noland MD - 03/07/2023 For Patients: As a result of the Cures Act, medical imagingexams and procedure reports are released immediately into your electronicmedical record. You may view this report before your referring provider.If you have questions, please contact your health care provider. HISTORY: Left anterior talamantes wound. TECHNIQUE: Intravenous contrast enhanced CT of the left lower leg. 100 mL [id number] intravenous contrast was administered. COMPARISON: Radiographs 03/05/2023. FINDINGS: There is infiltration of the subcutaneous tissues of the left lower legreflecting cellulitis and/or edema. There is no localized collection. Notracking soft tissue gas. No acute bone destruction to suggestosteomyelitis. No acute fracture. IMPRESSION: 1. Infiltration of the subcutaneous tissues of the left lower legreflecting cellulitis and/or edema. 2. No localized fluid collection or tracking soft tissue gas. 3. No acute bone destruction to suggest osteomyelitis. Please note that all CT scans at this facility use dose modulation,iterative reconstruction, and/or weight-based dosing when appropriate toreduce radiation dose to as low as reasonably achievable. Dictated by Jesse Noland MD @ 03/07/2023 5:40:50 AM (Electronically Signed) Unique Chino MD CT * SCAN-CARDIAC STRIP (03/05/2023 7:29 PM RAILROAD PURCHASING AGENT) Scanner OTHER * XR TIBIA AND FIBULA 2 VIEWS LEFT PORTABLE (03/05/2023 3:25 PM RAILROAD PURCHASING AGENT) Anatomical Region Laterality Modality Tibia Digital Radiogra phy 03/05/2023 3:38 PM RAILROAD PURCHASING AGENT Impressions 03/05/2023 3:38 PM RAILROAD PURCHASING AGENT No bone destruction to suggest osteomyelitis. Dictated by Jesse Noland MD @ Mar 05 2023 ??3:38PM (Electronically Signed) ?? Narrative 03/05/2023 3:38 PM RAILROAD PURCHASING AGENT For Patients: ??As a result of the Cures Act, medical imaging exams and procedure reports are released immediately into your electronic medical record. ??You may view this report before your referring provider. ??If you have questions, please contact your health care provider. HISTORY: Pain. TECHNIQUE: Two views of the left tibia and fibula. COMPARISON: 03/05/2023. FINDINGS: Mild degenerative changes of the left knee. No suprapatellar joint effusion. Mild degenerative changes of the ankle. There is no acute left tibial or fibular fracture. No bone destruction to suggest osteomyelitis. No tracking soft tissue gas. Procedure Note Jesse Noland MD - 03/05/2023 For Patients: As a result of the Cures Act, medical imagingexams and procedure reports are released immediately into your electronicmedical record. You may view this report before your referring provider.If you have questions, please contact your health care provider. HISTORY: Pain. TECHNIQUE: Two views of the left tibia and fibula. COMPARISON: 03/05/2023. FINDINGS: Mild degenerative changes of the left knee. No suprapatellar jointeffusion. Mild degenerative changes of the ankle. There is no acute lefttibial or fibular fracture. No bone destruction to suggest osteomyelitis.No tracking soft tissue gas. IMPRESSION: No bone destruction to suggest osteomyelitis. Dictated by Jesse Noland MD @ Mar 05 2023 3:38PM (Electronically Signed) Alla Bruner NP GENERAL IMAGING * COVID-19 MOLECULAR (03/05/2023 3:23 PM RAILROAD PURCHASING AGENT) COVID 19 [facility] MOLECULAR Negative Negative 03/05/2023 5:18 PM RAILROAD PURCHASING AGENT [facility] N[facility]AL LABORATORY Comment:All PCR tests are brown bject to false negative result due to variability in viral load and collection technique. A negative result does not rule out a SARS-CoV-2 infection. Clinical correlation required. TESTING LABORATORY [facility] [employer] 03/05/2023 5:18 PM RAILROAD PURCHASING AGENT [facility]AL LABORATORY Comment:Specimen submitted t o [facility] for testing. Other SPECIMEN FROM NASOPHARYNGEAL STRUCTURE / Unknown Non-Blood / Unknown 03/05/2023 3:23 PM RAILROAD PURCHASING AGENT 03/05/2023 3:38 PM RAILROAD PURCHASING AGENT Narrative [facility] - 03/05/2023 5:18 PM RAILROAD PURCHASING AGENT This test has been authorized by FDA under an Emergency Use Authorization (EUA). This test is only authorized for the duration of time the declaration that circumstances exist justifying the authorization of the emergency use of in vitro diagnostic tests for detection of SARS-CoV-2 virus and/or diagnosis of COVID-19 infection under section 564(b)(1) of the Act, 21 U.S.C. 360bbb-3(b) (1), unless the authorization is terminated or revoked sooner. Alla Bruner NP [facility]CROBIOLOGY [facility] [address] [place] [address], * ECHO TTE LIMITED WO CONTRAST W COLOR W LTD DOPPLER (03/05/2023 12:45 PM RAILROAD PURCHASING AGENT) LVEDD 6.7 cm EJECTION FRACTION 20 - 25% Anatomical Region Laterality Modality Ultrasound 03/05/2023 12:1 6 PM RAILROAD PURCHASING AGENT Narrative 03/05/2023 4:42 PM RAILROAD PURCHASING AGENT ECHOCARDIOGRAM SRIRAM Tinsley HEADLINE ? Accession#: ?? [id number] : ?1965 57 years Study Date: ?? 03/05/2023 12:16:19 PM Gender: M ?BP: ? 0/0 mmHg Height: 188.00 cm ?BSA: ?2.61 m? ? ? Weight: 139.00 kg ?Tech: ? OLK ? Referring MD: TANIA MIKE Site: ? [facility] Reading Location: [facility] OP Patient Location: Outpatient. Procedure: Limited Spectral Doppler, Color Doppler and Limited 2D. Indication for study: LVAD Cardiac Rhythm: Ventricular paced.Study quality: Technically limited. Final Impressions: Limited Echocardiogram performed 1. Heartmate III VAD at 5900 rpms. 2. Technically limited exam. 3. Moderate to severely increased LV size, normal wall thickness, severely reduced global systolic function with an estimated EF of 20 - 25%. 4. Right ventricular cavity size is normal, global systolic RV function is moderately reduced. 5. Aortic valves appears to open with every beat. 6. Compared to the prior study of 07/12/22, there is no significant change. Chamber Sizes and Function Heartmate III VAD at 5900 rpms. Moderate to severely increased left ventricular size, normal wall thickness, severely reduced global systolic function with an estimated EF of 20 - 25%. Right ventricular cavity size is normal, global systolic RV function is moderately reduced. Valves, RV Pressures and Diastolic Function The aortic valve is not well visualized , and trivial regurgitation. The tricuspid valve is not well visualized. The pulmonic valve is not well visualized. Masses, Effusion, Shunts The inferior vena cava is not well visualized, respiratory size variation not well visualized. MEASUREMENTS AND CALCULATIONS 2-D Measurements and LV Function: LVID (d) 6.7 cm HR 83 bpm . This study was interpreted by an [facility] accredited facility. ??Final ?? Procedure Note Luciano Qureshi MD - 03/05/2023 ECHOCARDIOGRAM SRIRAM Tinsley HEADLINE : 1965 57 years Study Date: 03/05/2023 12:16:19 PM Gender: M BP: 0/0 mmHg Height: 188.00 cm BSA: 2.61 m? ? ? Weight: 139.00 kg Tech: ESTEE Referring MD: TANIA MIKE Site: [facility] Reading Location: [facility] OP Patient Location: Outpatient. Procedure: Limited Spectral Doppler, Color Doppler and Limited 2D. Indication for study: LVAD Cardiac Rhythm: Ventricular paced.Study quality: Technically limited. Final Impressions: Limited Echocardiogram performed 1. Heartmate III VAD at 5900 rpms. 2. Technically limited exam. 3. Moderate to severely increased LV size, normal wall thickness,severely reduced global systolic function with an estimated EF of 20 -25%. 4. Right ventricular cavity size is normal, global systolic RV functionis moderately reduced. 5. Aortic valves appears to open with every beat. 6. Compared to the prior study of 07/12/22, there is no significantchange. Chamber Sizes and Function Heartmate III VAD at 5900 rpms. Moderate to severely increased leftventricular size, normal wall thickness, severely reduced global systolicfunction with an estimated EF of 20 - 25%. Right ventricular cavity sizeis normal, global systolic RV function is moderately reduced. Valves, RV Pressures and Diastolic Function The aortic valve is not well visualized , and trivial regurgitation. Thetricuspid valve is not well visualized. The pulmonic valve is not wellvisualized. Masses, Effusion, Shunts The inferior vena cava is not well visualized, respiratory size variationnot well visualized. MEASUREMENTS AND CALCULATIONS 2-D Measurements and LV Function: LVID (d) 6.7 cm HR 83 bpm . This study was interpreted by an [facility] accredited facility. Final Tania Mike MD ECHO ORD * XR TIBIA AND FIBULA 2 VIEWS LEFT (03/05/2023 10:52 AM RAILROAD PURCHASING AGENT) Only the most recent of2 resultswithin the time period is included. Anatomical Region Laterality Modality Tibia Digital Radiogra phy 03/05/2023 11:0 3 AM RAILROAD PURCHASING AGENT Impressions 03/05/2023 11:03 AM RAILROAD PURCHASING AGENT No radiographic findings of osteomyelitis. Dictated by Jesse Noland MD @ Mar 05 2023 11:03AM (Electronically Signed) ?? Narrative 03/05/2023 11:03 AM RAILROAD PURCHASING AGENT For Patients: ??As a result of the 21st Century Cures Act, medical imaging exams and procedure reports are released immediately into your electronic medical record. ??You may view this report before your referring provider. ??If you have questions, please contact your health care provider. HISTORY: Left talamantes ulcer. TECHNIQUE: Two views of the left tibia and fibula. COMPARISON: 02/12/2023. FINDINGS: No bony destructive change to suggest osteomyelitis. No fracture. No radiopaque foreign body. Mild degenerative changes of the knee. Spurring of the posterior calcaneus. Procedure Note Jesse Noland MD - 03/05/2023 For Patients: As a result of the Cures Act, medical imagingexams and procedure reports are released immediately into your electronicmedical record. You may view this report before your referring provider.If you have questions, please contact your health care provider. HISTORY: Left talamantes ulcer. TECHNIQUE: Two views of the left tibia and fibula. COMPARISON: 02/12/2023. FINDINGS: No bony destructive change to suggest osteomyelitis. No fracture. Noradiopaque foreign body. Mild degenerative changes of the knee. Spurringof the posterior calcaneus. IMPRESSION: No radiographic findings of osteomyelitis. Dictated by Jesse Noland MD @ Mar 05 2023 11:03AM (Electronically Signed) Dale Bar MD GENERAL IMAGING * BLOOD CULTURE (03/05/2023 9:40 AM RAILROAD PURCHASING AGENT) Only the most recent of4 resultswithin the time period is included. Pathologist [facility] CULTURE No Growth. 03/10/2023 11:08 AM RAILROAD PURCHASING AGENT [facility] Blood BLOOD SPECIMEN / Unknown Non-Lab Venipuncture / Unknown 03/05/2023 9:40 AM RAILROAD PURCHASING AGENT 03/05/2023 9:56 AM RAILROAD PURCHASING AGENT Dale Bar MD MICROBIOLOGY [facility] [address] [place] [address], * IRON PLUS IRON BINDING CAP (03/05/2023 9:40 AM RAILROAD PURCHASING AGENT) IRON 67 61 - 157 ug/dL 03/05/2023 10:53 AM RAILROAD PURCHASING AGENT [facility] UIBC (UNSATURATED) 236 112 - 347 ug/dL 03/05/2023 10:53 AM RAILROAD PURCHASING AGENT [facility] IRON BINDING CAPACITY 303 250 - 400 ug/dL 03/05/2023 10:53 AM RAILROAD PURCHASING AGENT [facility] IRON,% SATURATION 22 14 - 50 % 03/05/2023 10:53 AM RAILROAD PURCHASING AGENT [facility] Blood BLOOD SPECIMEN / Unknown Non-Lab Venipuncture / Unknown 03/05/2023 9:40 AM RAILROAD PURCHASING AGENT 03/05/2023 9:57 AM RAILROAD PURCHASING AGENT Dale Bar MD CHEMISTRY [facility] [address] [place] [address], * (ABNORMAL) PRO-BNP (03/05/2023 9:40 AM RAILROAD PURCHASING AGENT) PRO-BNP 3,605(H) <125 pg/mL 03/05/2023 11:00 AM RAILROAD PURCHASING AGENT [facility] Blood BLOOD SPECIMEN / Unknown Non-Lab Venipuncture / Unknown 03/05/2023 9:40 AM RAILROAD PURCHASING AGENT 03/05/2023 9:57 AM RAILROAD PURCHASING AGENT Narrative [facility] - 03/05/2023 11:00 AM RAILROAD PURCHASING AGENT The following cut-points have been suggested for the use of proBNP for the diagnostic evaluation of heart failure (HF) in patient with acute dyspnea. Patients with eGFR >= 60 Diagnosis (rule in CHF) ? <50 Years Old ?450 pg/mL 50 - 75 Years Old ?900 pg/mL >75 Years Old ? 1800 pg/mL Exclusion (rule out CHF) Age Independent ?300 pg/mL A cutoff of 1200 pg/mL for patients with an eGFR <60 yields a diagnostic sensitivity of 89% and specificity of 72% for acute congestive heart failure. ? Dale Bar MD SEND OUTS [facility] [address] [place] [address], * FERRITIN (03/05/2023 9:40 AM RAILROAD PURCHASING AGENT) FERRITIN 199.0 30.0 - 400.0 ng/mL 03/05/2023 11:22 AM RAILROAD PURCHASING AGENT [facility] Blood BLOOD SPECIMEN / Unknown Non-Lab Venipuncture / Unknown 03/05/2023 9:40 AM RAILROAD PURCHASING AGENT 03/05/2023 9:57 AM RAILROAD PURCHASING AGENT Dale Bar MD CHEMISTRY Performing Organization Address [facility] Co de Phone Number [facility] [address] [place] [address], * (ABNORMAL) HEPATIC FUNCTION PANEL (03/05/2023 9:40 AM RAILROAD PURCHASING AGENT) ALBUMIN 3.7(L) 4.0 - 4.9 g/dL 03/05/2023 11:00 AM RAILROAD PURCHASING AGENT [facility] PROTEIN,TOTAL 6.8 6.0 - 8.0 g/dL 03/05/2023 11:00 AM RAILROAD PURCHASING AGENT [facility] BILIRUBIN,TOTAL 0.7 0.0 - 1.2 mg/dL 03/05/2023 11:00 AM [facility] BILIRUBIN,DIRECT 0.2 0.0 - 0.3 mg/dL 03/05/2023 11:00 AM RAILROAD PURCHASING AGENT [facility] LAB[facility] BILIRUBIN,INDIRE CT 0.5 0.2 - 0.8 mg/dL 03/05/2023 11:00 AM [facility] ALK PHOSPHATASE 111 40 - 129 IU/L 03/05/2023 11:00 AM [facility] ALT (SGPT) 7(L) 10 - 50 IU/L 03/05/2023 11:00 AM RAILROAD PURCHASING AGENT [facility] AST (SGOT) 24 10 - 50 IU/L 03/05/2023 11:00 AM RAILROAD PURCHASING AGENT [facility] Blood BLOOD SPECIMEN / Unknown Non-Lab Venipuncture / Unknown 03/05/2023 9:40 AM RAILROAD PURCHASING AGENT 03/05/2023 9:57 AM RAILROAD PURCHASING AGENT Dale Bar MD CHEMISTRY Performing Organization Address City/[facility] Co de Phone Number [facility] [address] [place] [address], [place] * LACTATE SCREEN VENOUS ISTAT W ROMERO (02/12/2023 6:17 PM CDT) Only the most recent of2 resultswithin the time period is included. LACTATE VENOUS SCREEN ISTAT <1.8 <=2.0 02/12/2023 6:19 PM CDT [facility] LACTATE SCREEN VENOUS POCT 1.5 <=2.0 02/12/2023 6:19 PM CDT [facility] Blood BLOOD SPECIMEN / Unknown 02/12/2023 6:17 PM CDT 02/12/2023 6:19 PM CDT Jeni Parra MD LABORATORY Performing Organization Address [facility] de Phone Number [facility] [address] [place] [address], [place] * EXTRA TUBE ROMERO ON ICE (02/12/2023 5:57 PM CDT) Blood BLOOD SPECIMEN / Unknown Non-Lab Venipuncture / Unknown 02/12/2023 5:57 PM CDT 02/12/2023 6:15 PM CDT Jeni Parra MD LABORATORY Performing Organization Address City/[facility] Co de Phone Number [facility] [address] [place] [id number], [place] * LACTATE VENOUS (02/12/2023 5:57 PM CDT) LACTATE,VENOUS 1.2 0.5 - 2.0 mmol/L 02/12/2023 6:59 PM CDT [facility] Blood BLOOD SPECIMEN / Unknown Non-Lab Venipuncture / Unknown 02/12/2023 5:57 PM CDT 02/12/2023 6:15 PM CDT Jeni Parra MD CHEMISTRY [facility] [address] [place] [address], * (ABNORMAL) COMP METABOLIC PANEL (02/12/2023 5:57 PM CDT) Pathologist [facility] SODIUM 134(L) 136 - 145 mmol/L 02/12/2023 6:54 PM CDT [facility] POTASSIUM 4.7 3.5 - 5.1 mmol/L 02/12/2023 6:54 PM CDT [facility] CHLORIDE 97(L) 98 - 107 mmol/L 02/12/2023 6:54 PM CDT [facility] CO2,TOTAL 25 22 - 29 mmol/L 02/12/2023 6:54 PM CDT [facility] ANION GAP 12 5 - 18 02/12/2023 6:54 PM CDT [facility] GLUCOSE 266(H) 70 - 99 mg/dL 02/12/2023 6:54 PM CDT [facility] CALCIUM 9.8 8.6 - 10.0 mg/dL 02/12/2023 6:54 PM CDT [facility] BUN 30(H) 6 - 20 mg/dL 02/12/2023 6:54 PM CDT [facility] CREATININE 1.66(H) 0.70 - 1.20 mg/dL 02/12/2023 6:54 PM CDT [facility] BUN/CREAT RATIO 18 10 - 20 6:54 PM CDT [facility] eGFR 48(L) >90 mL/min/1.7 3m2 02/12/2023 6:54 PM CDT [facility] Comment:As of 2021, eG FR is calculated by the CKD-EPI creatinine equation without race adjustment. ??eGFR can be influenced by muscle mass, exercise, and diet. ??The reported eGFR is an estimation only and is only applicable if the renal function is stable. ALBUMIN 4.1 4.0 - 4.9 g/dL 02/12/2023 6:54 PM CDT [facility] PROTEIN,TOTAL 6.9 6.0 - 8.0 g/dL 02/12/2023 6:54 PM CDT [facility] BILIRUBIN,TOTAL 0.7 0.0 - 1.2 mg/dL 02/12/2023 6:54 PM CDT [facility] ALK PHOSPHATASE 114 40 - 129 IU/L 02/12/2023 6:54 PM CDT [facility] ALT (SGPT) 10 10 - 50 IU/L 02/12/2023 6:54 PM CDT [facility] AST (SGOT) 20 10 - 50 IU/L 02/12/2023 6:54 PM CDT [facility] Blood BLOOD SPECIMEN / Unknown Non-Lab Venipuncture / Unknown 02/12/2023 5:57 PM CDT 02/12/2023 6:15 PM CDT Jeni Parra MD [facility] [address] [place] [address], from Last 3 Months Advance Directives Documents on File Type Date Recorded Patient Drier Take Off Tender Expl anation Healthcare Directive 08/29/2021 022 Latest Code Status on File Code Status Date Activated Date Inactivated Comments Full Code 03/05/2023 2:40 PM 03/07/2023 5:52 PM Question Answer Comments Code Status Discussion: Reviewed Preferences Code Status History Code Status Date Activated Date Inactivated Comments Full Code 03/05/2023 2:24 PM 03/05/2023 2:40 PM OK to use FARHAD [must be 6 weeks post VAD implant] Question Answer Comments Code Status Discussion: Reviewed Preferences Full Code 12/29/2022 4:47 PM 12/31/2022 6:23 PM OK to use FARHAD [must be 6 weeks post VAD implant] Question Answer Comments Code Status Discussion: Reviewed Preferences Full Code 12/29/2022 4:47 PM 12/29/2022 4:47 PM Question Answer Comments Code Status Discussion: Reviewed Preferences Full Code 06/26/2022 4:18 PM 06/26/2022 7:35 PM Question Answer Comments Code Status Discussion: Reviewed Preferences Care Teams District Superintendent Relationship Specialty Start Date End Date Luciano Candelaria MD [address] [place] [address] PCP - General Family Practice 12/23/19 Tania Mike MD [address] [place] [address] Advanced Heart Failure/Transplant Card 01/05/22 Huang Brady MD [address] [facility] [address] [place], [place] [id number] Surgery - Cardiothoracic 01/05/22 Coordinators, Vad Nurse Clinician Advanced Heart Failure/Transplant Card 01/05/22 Staff, Other Clinical . 02/14/23 Laboratory--[facility] 03/21/22 Miladys Krishnamurthy Truck Bracer Advanced Heart Failure/Transplant Card 03/27/22
== END 2023-04-25 13:12 | disposition home or self-care (01) ==
LOC: WOUND 13:12
PROVIDERS: PCP Family Medicine; Visit Provider Surgery
DX: I87.312 Chronic venous hypertension (idiopathic) with ulcer of left lower extremity (principal); L97.828 Non-pressure chronic ulcer of other part of left lower leg with other specified severity
CPT/HCPCS: 97597

== ENCOUNTER 2023-05-02 13:01 | Outpatient (CLI) | payer MEDICARE, MEDICAID, SELFPAY ==
--- OUTSIDE RECORDS SUMMARY | 2023-05-02 13:43 | XMS_ITS ---
Author Name Unknown Address [address] [place] [address] [facility] da Address [address] [place] [address] Phone Care Team Providers Care Supervisor Type Bar And Segment Name Role Phone Unavailable Unavailable Unavailable Plan of Treatment No Plan of Treatment Recorded Assessments Includes: Assessments for all patient encounters No Assessments Recorded Medical Equipment - Implanted Devices Includes: Current and historical Devices No Medical Equipment Recorded Medications Administered Includes: Administered Medications in patient's chart No Administered Medications Recorded Results Includes: Results from 05/02/2022 through 05/02/2023 No Results Recorded For Specified Dates History [...] Relationship Effect stewart Dates 1 - MEDICARE [id number] GREGG Tinsley HEADLINE Self Clinical Notes Includes: Signed Clinical Notes starting from 03/24/2022 No Clinical Notes Recorded
--- OUTSIDE RECORDS SUMMARY | 2023-05-02 13:43 | XMS_ITS | Clinical Summary ---
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 Huang Brady Primary HF/VAD Iuss Acoustic Analyst: Dr. Tania Mike Primary VAD Coordinator: VAD EMERGENCY Referring MD: CardioME PAD Goal <28 01/03/2021 Overview: CardioMEMs device implanted on 12/31/20. Primary bicycle technician is Dr. Mike . CardioMEMs is MRI [...] BMI 40-44 posted on 05/08 at 09:15 COMMUNICATIONS SUPERINTENDENT. 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 [...] Encounters Date Type Department Care Team Description 04/27/2023 Telephone [facility] [address] [place] [phone] Yary Christian, YU Anticoagulation (INR 2.2) 04/20/2023 Telephone [facility] [address] [place] [phone] Tina Tellez, YU Anticoagulation (INR 1.8) 04/11/2023 Refill [facility] [address] [place] [phone] Rafael Bunch MD Refill Request (Amiodarone) 04/06/2023 Telephone [facility] [address] [place] [phone] Tina Tellez, YU Anticoagulation (INR 2.1) 04/05/2023 Orders Only [facility] Scanner 1 scan: (1-Ord) INCOMING RECORDS-LABS, [facility], 04/05/2023 04/05/2023 Transcribe Orders [facility] [address] [place] [address] Lilliam Tesfaye MD 03/30/2023 Telephone [facility] [address] [phone] Tesha Parr RN Anticoagulation (INR 1.8) 03/23/2023 Telephone [facility] [address] [phone] Jeni Godoy RN Anticoagulation (INR 1.8) 03/16/2023 Telephone [facility] [address] [phone] Jeni Godoy RN Anticoagulation (INR 2) 03/13/2023 Orders Only [facility] [address] [phone] Tania Mike MD <No scans attached> 03/12/2023 Telephone [facility] [address] [phone] Tina Tellez RN Anticoagulation (INR 2.0) 03/09/2023 Telephone [facility] [address] [phone] Yary Christian RN Anticoagulation (INR 2.0) 03/05/2023 1:33 PM COMMUNICATIONS SUPERINTENDENT - 03/07/2023 3:42 PM COMMUNICATIONS SUPERINTENDENT Hospital Encounter [facility] [address] [address] Lorri Gaines MD [place], Barry McLeod, MD HTN (hypertension) (Primary Dx); Diabetic ulcer of left talamantes (HC); LVAD (left ventricular assist device) present (HC); Atrial fibrillation status post cardioversion (HC); Chronic combined systolic (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); Unspecified open wound, left lower leg, initial encounter Discharge Disposition: Home Health 03/05/2023 10:00 AM COMMUNICATIONS SUPERINTENDENT Office Visit [facility] [address] [phone] Dale Bar MD LVAD 03/05/2023 9:30 AM COMMUNICATIONS SUPERINTENDENT Orders Only [facility] [address] [phone] Lab 03/05/2023 Office Visit [facility] [address] [phone] Angy Pavon, PharmD Medication Management 03/05/2023 Travel 03/02/2023 Telephone [facility] [address] [phone] Tina Tellez RN Anticoagulation (INR 2.6) 03/02/2023 Orders Only [facility] [address] [phone] Dale Bar MD <No scans attached> 02/23/2023 Telephone [facility] [address] [phone] Tina Tellez RN Anticoagulation (INR 2.0) 02/16/2023 10:50 AM CDT Orders Only [address] [phone] Lab, [facility] 02/16/2023 Telephone [facility] [address] [phone] Jeni Godoy RN Anticoagulation (INR 2.1) 02/16/2023 Travel 02/13/2023 Telephone [facility] [address] [phone] Jeni Godoy RN Anticoagulation (INR 3.9) 02/12/2023 5:38 PM CDT - 02/12/2023 8:15 PM CDT Emergency [facility] Emergency Department [address] [place] [address] Jeni Parra MD Leg wound, left, initial encounter (Primary Dx); Nausea and vomiting, unspecified vomiting type Discharge Disposition: Home Self Care 02/12/2023 Travel from Last 3 Months Family History [...] PM CDT Pulse 85 03/07/2023 1:00 PM COMMUNICATIONS SUPERINTENDENT Temperature 36.8 ??C (98.2 ??F) 03/07/2023 8:50 AM CS T Respiratory Rate 20 03/07/2023 1:00 PM COMMUNICATIONS SUPERINTENDENT Oxygen Saturation 95% 03/06/2023 11:00 PM COMMUNICATIONS SUPERINTENDENT Inhaled Oxygen Concentration - - Weight 133.6 kg (294 lb 8 oz) 03/07/2023 6:00 AM COMMUNICATIONS SUPERINTENDENT Height 188 cm (6' 2) 03/07/2023 6:00 AM COMMUNICATIONS SUPERINTENDENT Body Mass Index 37.81 03/07/2023 6:00 AM COMMUNICATIONS SUPERINTENDENT Plan of Treatment Upcoming Encounters Date Type Department Care Team (Late st Contact Info) Description 05/14/2023 10:00 AM COMMUNICATIONS SUPERINTENDENT Office Visit [facility] [address] [place] [phone] Dale Bar MD [address] [place] [address] 07/04/2023 Cardiac Device Check [facility] [phone] Health Maintenance Due Date Last Done Comments [...] Completed 10/03/2021 Medical Devices Implanted Type Area Credit And Collections Representative Device Identifier Shelf Expiration Date Model / Serial / Lot Cardiomems-12/31 Implanted:12/31 (Quantity not on file) CardioMEMS [id number] - [id number] Implanted:Qty: 1 on 01/24/2017 by Richie Watkins MD at [facility] [employer] 08/11/2018 [id number] / / [id number] Description:Ventralex ST Her sebastian Patch Pump Lvad Heartmate 3 Kit - [id number], [id number] Implanted:Qty: 1 on 01/05/2022 by Huang Brady MD at [facility] N/A: Heart [employer] 02/18/2023 [id number] / [id number] , [id number] / Procedures Procedure Name Priority Date/Time Associated Diagnosis Comments SCAN CORRESP-LABORATORY RESULTS 04/05/2023 12:00 AM COMMUNICATIONS SUPERINTENDENT GLUCOSE METER Timed 03/07/2023 1:01 PM COMMUNICATIONS SUPERINTENDENT GLUCOSE METER Timed 03/07/2023 7:33 AM COMMUNICATIONS SUPERINTENDENT MAGNESIUM SOLANGE 03/07/2023 4:42 AM COMMUNICATIONS SUPERINTENDENT CBC WITH AUTO DIFFERENTIAL Early AM 03/07/2023 4:42 AM COMMUNICATIONS SUPERINTENDENT PROTIME-INR Early AM 03/07/2023 4:42 AM COMMUNICATIONS SUPERINTENDENT BASIC METABOLIC PANEL Early AM 03/07/2023 4:42 AM COMMUNICATIONS SUPERINTENDENT CBC WITH AUTO DIFFERENTIAL Early AM 03/07/2023 4:42 AM COMMUNICATIONS SUPERINTENDENT GLUCOSE METER Timed 03/06/2023 9:30 PM COMMUNICATIONS SUPERINTENDENT SCAN-CARDIAC STRIP 03/06/2023 7: 11 PM COMMUNICATIONS SUPERINTENDENT AEROBIC BACTERIAL CULTURE, STAIN Today 03/06/2023 6:53 PM COMMUNICATIONS SUPERINTENDENT GLUCOSE METER Timed 03/06/2023 6:[address] LOWER EXTREMITY LEFT W Routine 03/06/2023 6:20 PM COMMUNICATIONS SUPERINTENDENT GLUCOSE METER Timed 03/06/2023 11:22 AM COMMUNICATIONS SUPERINTENDENT GLUCOSE METER Timed 03/06/2023 7:23 AM COMMUNICATIONS SUPERINTENDENT MAGNESIUM SOLANGE 03/06/2023 4:54 AM COMMUNICATIONS SUPERINTENDENT CBC WITH AUTO DIFFERENTIAL Early AM 03/06/2023 4:54 AM COMMUNICATIONS SUPERINTENDENT PROTIME-INR Early AM 03/06/2023 4:54 AM COMMUNICATIONS SUPERINTENDENT BASIC METABOLIC PANEL Early AM 03/06/2023 4:54 AM COMMUNICATIONS SUPERINTENDENT CBC WITH AUTO DIFFERENTIAL Early AM 03/06/2023 4:54 AM COMMUNICATIONS SUPERINTENDENT GLUCOSE METER Timed 03/05/2023 9:50 PM COMMUNICATIONS SUPERINTENDENT SCAN-CARDIAC STRIP 03/05/2023 7: 29 PM COMMUNICATIONS SUPERINTENDENT GLUCOSE METER Timed 03/05/2023 5:20 PM COMMUNICATIONS SUPERINTENDENT PROTIME-INR Early AM 03/05/2023 3:46 PM COMMUNICATIONS SUPERINTENDENT BASIC METABOLIC PANEL SOLANGE 03/05/2023 3:46 PM COMMUNICATIONS SUPERINTENDENT XR TIBIA AND FIBULA 2 VIEWS LEFT PORTABLE Routine 03/05/2023 3:25 PM COMMUNICATIONS SUPERINTENDENT COVID-19 MOLECULAR Today 03/05/2023 3: 23 PM COMMUNICATIONS SUPERINTENDENT ECHO TTE LIMITED WO CONTRAST W COLOR W LTD DOPPLER Routine 03/05/2023 12:45 PM COMMUNICATIONS SUPERINTENDENT LVAD (left ventricular assist device) present (HC) XR TIBIA AND FIBULA 2 VIEWS LEFT SOLANGE 03/05/2023 10:52 AM COMMUNICATIONS SUPERINTENDENT Diabetic ulcer of left talamantes (HC) BLOOD CULTURE Routine 03/05/2023 9:40 AM COMMUNICATIONS SUPERINTENDENT Wound infection CBC WITH AUTO DIFFERENTIAL Routine 03/05/2023 9:40 AM COMMUNICATIONS SUPERINTENDENT Chronic combined systolic (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) BLOOD CULTURE Routine 03/05/2023 9:40 AM COMMUNICATIONS SUPERINTENDENT Wound infection PRO-BNP Routine 03/05/2023 9:40 AM COMMUNICATIONS SUPERINTENDENT Chronic combined systolic (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) FERRITIN Routine 03/05/2023 9:40 AM COMMUNICATIONS SUPERINTENDENT Iron deficiency IRON PLUS IRON BINDING CAP Routine 03/05/2023 9:40 AM COMMUNICATIONS SUPERINTENDENT Iron deficiency BASIC METABOLIC PANEL Routine 03/05/2023 9:40 AM COMMUNICATIONS SUPERINTENDENT Chronic combined systolic (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) PROTIME-INR Routine 03/05/2023 9:40 AM COMMUNICATIONS SUPERINTENDENT LVAD (left ventricular assist device) present (HC) HEPATIC FUNCTION PANEL Routine 03/05/2023 9:40 AM COMMUNICATIONS SUPERINTENDENT Chronic combined systolic (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) MAGNESIUM Routine 03/05/2023 9:40 AM COMMUNICATIONS SUPERINTENDENT Chronic combined systolic (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) CBC WITH AUTO DIFFERENTIAL Routine 03/05/2023 9:40 AM COMMUNICATIONS SUPERINTENDENT Chronic combined systolic (congestive) and diastolic (congestive) [...] SCREEN VENOUS STAT 02/12/2023 5:57 PM CDT from Last 3 Months Results * SCAN CORRESP-LABORATORY RESULTS (04/05/2023 12:00 AM COMMUNICATIONS SUPERINTENDENT) Scanner OTHER * (ABNORMAL) GLUCOSE METER (03/07/2023 1:01 PM COMMUNICATIONS SUPERINTENDENT) Only the most recent of8 resultswithin the time period is included. GLUCOSE METER 153(H) 65 - 100 mg/dL 03/07/2023 1:05 PM COMMUNICATIONS SUPERINTENDENT [facility] Blood BLOOD SPECIMEN / Unknown 03/07/2023 1:01 PM COMMUNICATIONS SUPERINTENDENT 03/07/2023 1:05 PM COMMUNICATIONS SUPERINTENDENT Tania Mike MD [facility]Y [facility] [address] [place] [address], * (ABNORMAL) CBC WITH AUTO DIFFERENTIAL (03/07/2023 4:42 AM COMMUNICATIONS SUPERINTENDENT) Only the most recent of4 resultswithin the time period is included. WHITE BLOOD COUNT 8.3 4.5 - 11.0 thou/cu mm 03/07/2023 5:57 AM COMMUNICATIONS SUPERINTENDENT [facility] RED BLOOD COUNT 6.34(H) 4.30 - 5.90 mil/cu mm 03/07/2023 5:57 AM [facility] HEMOGLOBIN 18.7(H) 13.5 - 17.5 g/dL 03/07/2023 5:57 AM [facility] HEMATOCRIT 54.4(H) 37.0 - 53.0 % 03/07/2023 5:57 AM [facility] MCV 86 80 - 100 fL 03/07/2023 5:57 AM [facility] MCH 29.5 26.0 - 34.0 pg 03/07/2023 5:57 AM [facility] MCHC 34.4 32.0 - 36.0 g/dL 03/07/2023 5:57 AM [facility] RDW 15.3 11.5 - 15.5 % 03/07/2023 5:57 AM [facility] PLATELET COUNT 153 140 - 440 thou/cu mm 03/07/2023 5:57 AM [facility] MPV 10.2 6.5 - 11.0 fL 03/07/2023 5:57 AM [facility] NRBC 0.0 % 03/07/2023 5:57 AM [facility] ABS NRBC 0.0 thou /cu mm 03/07/2023 5:57 AM [facility] % NEUT 59.6 % 03/07/2023 5:57 AM [facility] % LYMPH 27.6 % 03/07/2023 5:57 AM [facility] % MONO 9.4 % 03/07/2023 5:57 AM [facility] % EOS 1.9 % 03/07/2023 5:57 AM [facility] % BASO 1.1 % 03/07/2023 5:57 AM [facility] % IMMATURE GRAN (METAS,MYELOS,NY OS) 0.4 % 03/07/2023 5:57 AM COMMUNICATIONS SUPERINTENDENT [facility] ABSOLUTE NEUTROPHILS 5.0 1.7 - 7.0 thou/cu mm 03/07/2023 5:57 AM COMMUNICATIONS SUPERINTENDENT [facility] ABSOLUTE LYMPHOCYTES 2.3 0.9 - 2.9 thou/cu mm 03/07/2023 5:57 AM COMMUNICATIONS SUPERINTENDENT [facility] ABSOLUTE MONOCYTES 0.8 <0.9 thou/cu mm 03/07/2023 5:57 AM COMMUNICATIONS SUPERINTENDENT [facility] ABSOLUTE EOSINOPHILS 0.2 <0.5 thou/cu mm 03/07/2023 5:57 AM COMMUNICATIONS SUPERINTENDENT [facility] ABSOLUTE BASOPHILS 0.1 <0.3 thou/cu mm 03/07/2023 5:57 AM COMMUNICATIONS SUPERINTENDENT [facility] ABSOLUTE IMMATURE GRANULOCYTES(MET ,MYELOS,PROS) 0.0 <0.3 thou/cu mm 03/07/2023 5:57 AM COMMUNICATIONS SUPERINTENDENT [facility] Blood BLOOD SPECIMEN / Unknown Line/Port / Unknown 03/07/2023 4:42 AM COMMUNICATIONS SUPERINTENDENT 03/07/2023 5:50 AM COMMUNICATIONS SUPERINTENDENT Dale Bar MD HEMATOLOGY [facility] [address] [place] [address], * (ABNORMAL) Protime - INR (03/07/2023 4:42 AM COMMUNICATIONS SUPERINTENDENT) Only the most recent of6 resultswithin the time period is included. INR 2.4(H) <1.3 03/07/2023 6:18 AM COMMUNICATIONS SUPERINTENDENT [facility] PROTIME 26.4(H) 10.3 - 12.3 sec 03/07/2023 6:18 AM COMMUNICATIONS SUPERINTENDENT [facility] Blood BLOOD SPECIMEN / Unknown Line/Port / Unknown 03/07/2023 4:42 AM COMMUNICATIONS SUPERINTENDENT 03/07/2023 5:50 AM COMMUNICATIONS SUPERINTENDENT Narrative [facility] - 03/07/2023 6:18 AM COMMUNICATIONS SUPERINTENDENT ?Therapeutic Range 2.0-3.0 for most anticoagulated patients [...] Dale Bar MD HEMATOLOGY Performing Organization Address [facility] Co de Phone Number [facility] [address] [place] [address], * MAGNESIUM (03/07/2023 4:42 AM COMMUNICATIONS SUPERINTENDENT) Only the most recent of3 resultswithin the time period is included. Pathologist [facility] MAGNESIUM 1.8 1.6 - 2.6 mg/dL 03/07/2023 8:00 AM COMMUNICATIONS SUPERINTENDENT [facility] Blood BLOOD SPECIMEN / Unknown Line/Port / Unknown 03/07/2023 4:42 AM COMMUNICATIONS SUPERINTENDENT 03/07/2023 5:50 AM COMMUNICATIONS SUPERINTENDENT Tania Mike MD CHEMISTRY Performing Organization Address [facility] Phone Number [facility] [address] [place] [address], * (ABNORMAL) BASIC METABOLIC PANEL (03/07/2023 4:42 AM COMMUNICATIONS SUPERINTENDENT) Only the most recent of4 resultswithin the time period is included. SODIUM 134(L) 136 - 145 mmol/L 03/07/2023 6:25 AM COMMUNICATIONS SUPERINTENDENT [facility] POTASSIUM 3.8 3.5 - 5.1 mmol/L 03/07/2023 6:25 AM COMMUNICATIONS SUPERINTENDENT [facility] CHLORIDE 95(L) 98 - 107 mmol/L 03/07/2023 6:25 AM COMMUNICATIONS SUPERINTENDENT [facility] CO2,TOTAL 25 22 - 29 mmol/L 03/07/2023 6:25 AM COMMUNICATIONS SUPERINTENDENT [facility] ANION GAP 14 5 - 18 03/07/2023 6:25 AM [facility] GLUCOSE 187(H) 70 - 99 mg/dL 03/07/2023 6:25 AM [facility] CALCIUM 9.3 8.6 - 10.0 mg/dL 03/07/2023 6:25 AM [facility] BUN 30(H) 6 - 20 mg/dL 03/07/2023 6:25 AM [facility] CREATININE 1.67(H) 0.70 - 1.20 mg/dL 03/07/2023 6:25 AM [facility] BUN/CREAT RATIO 18 10 - 20 6:25 AM [facility] eGFR 47(L) >90 mL/min/1.7 3m2 03/07/2023 6:25 AM [facility] Comment:As of 2021, eG FR is calculated by the CKD-EPI creatinine equation without race adjustment. ??eGFR can be influenced by muscle mass, exercise, and diet. ??The reported eGFR is an estimation only and is only applicable if the renal function is stable. Blood BLOOD SPECIMEN / Unknown Line/Port / Unknown 03/07/2023 4:42 AM COMMUNICATIONS SUPERINTENDENT 03/07/2023 5:50 AM COMMUNICATIONS SUPERINTENDENT Dale Bar MD CHEMISTRY [facility] [address] [place] [address], * SCAN-CARDIAC STRIP (03/06/2023 7:11 PM COMMUNICATIONS SUPERINTENDENT) Scanner OTHER * (ABNORMAL) AEROBIC BACTERIAL CULTURE, STAIN (03/06/2023 6:53 PM COMMUNICATIONS SUPERINTENDENT) CULTURE RESULT(A) 03/09/2023 10:37 AM COMMUNICATIONS SUPERINTENDENT [facility] CULTURE 1+ Enterobacter cloacae complex 03/09/2023 10:37 AM COMMUNICATIONS SUPERINTENDENT [facility] Comment: May develop resistance during prolonged therapy with 3rd-generation cephalosporins as a result of derepression of AmpC beta-lactamase. ??Therefore, isolates that are initially susceptible may become resistant within 3 to 4 days after initiation of therapy. ??Testing repeat isolates may be warranted. Oral cephalosporins are also not recommended. CULTURE 2+ Mixed inga present 03/09/2023 10:37 AM COMMUNICATIONS SUPERINTENDENT [facility] GRAM STAIN No PMNs 03/09/2023 10:37 AM COMMUNICATIONS SUPERINTENDENT [facility] GRAM STAIN 1+ Gram Positive Cocci 03/09/2023 10:37 AM COMMUNICATIONS SUPERINTENDENT [facility] GRAM STAIN No Epithelial cells 03/09/2023 10:37 AM COMMUNICATIONS SUPERINTENDENT [facility] GRAM STAIN No RBCs 03/09/2023 10:37 AM COMMUNICATIONS SUPERINTENDENT [facility] Other (Other) Non-Blood / Unknown 03/06/2023 6:53 PM COMMUNICATIONS SUPERINTENDENT 03/06/2023 6:59 PM COMMUNICATIONS SUPERINTENDENT Narrative [facility] - 03/09/2023 10:37 AM COMMUNICATIONS SUPERINTENDENT Mixed inga; No Staphylococcus aureus, beta-Streptococcus, Streptococcus [...] MEROPENEM <=0.25: S Alla Bruner NP MICROBIOLOGY [facility] [address] [place] [address], [place] * CT LOWER EXTREMITY LEFT W (03/06/2023 6:20 PM COMMUNICATIONS SUPERINTENDENT) Anatomical Region Laterality Modality FEMUR L, KNEE L, ANKLE L, FOOT L Computed Tomography 03/07/2023 5:40 AM COMMUNICATIONS SUPERINTENDENT Impressions 03/07/2023 5:40 AM COMMUNICATIONS SUPERINTENDENT 1. Infiltration of the subcutaneous tissues of [...] AM (Electronically Signed) Narrative 03/07/2023 5:40 AM COMMUNICATIONS SUPERINTENDENT For Patients: ??As a result of the [...] of the left lower leg. 100 mL [id number] intravenous contrast was administered. COMPARISON: Radiographs 03/05/2023. [...] CT * SCAN-CARDIAC STRIP (03/05/2023 7:29 PM COMMUNICATIONS SUPERINTENDENT) Scanner OTHER * XR TIBIA AND FIBULA 2 VIEWS LEFT PORTABLE (03/05/2023 3:25 PM COMMUNICATIONS SUPERINTENDENT) Anatomical Region Laterality Modality [facility] [employer] Radiogra phy 03/05/2023 3:38 PM COMMUNICATIONS SUPERINTENDENT Impressions 03/05/2023 3:38 PM COMMUNICATIONS SUPERINTENDENT No bone destruction to suggest osteomyelitis. Dictated by Jesse Noland MD @ Mar 05 2023 ??3:38PM (Electronically Signed) ?? Narrative 03/05/2023 3:38 PM COMMUNICATIONS SUPERINTENDENT For Patients: ??As a result of the [...] IMAGING * COVID-19 MOLECULAR (03/05/2023 3:23 PM COMMUNICATIONS SUPERINTENDENT) COVID 19 [facility] MOLECULAR Negative Negative 03/05/2023 5:18 PM COMMUNICATIONS SUPERINTENDENT [facility] Comment:All PCR tests are brown bject to false negative result due to variability in viral load and collection technique. A negative result does not rule out a SARS-CoV-2 infection. Clinical correlation required. TESTING LABORATORY [facility] 03/05/2023 5:18 PM COMMUNICATIONS SUPERINTENDENT [facility] Comment:Specimen submitted t o [facility] for testing. Other SPECIMEN FROM NASOPHARYNGEAL STRUCTURE / Unknown Non-Blood / Unknown 03/05/2023 3:23 PM COMMUNICATIONS SUPERINTENDENT 03/05/2023 3:38 PM COMMUNICATIONS SUPERINTENDENT Narrative [facility] - 03/05/2023 5:18 PM COMMUNICATIONS SUPERINTENDENT This test has been authorized by FDA [...] or revoked sooner. Alla Bruner NP MICROBIOLOGY [facility] [address] [place] [address], * ECHO TTE LIMITED WO CONTRAST W COLOR W LTD DOPPLER (03/05/2023 12:45 PM COMMUNICATIONS SUPERINTENDENT) LVEDD 6.7 cm EJECTION FRACTION 20 - 25% Anatomical Region Laterality Modality Ultrasound 03/05/2023 12:1 6 PM COMMUNICATIONS SUPERINTENDENT Narrative 03/05/2023 4:42 PM COMMUNICATIONS SUPERINTENDENT ECHOCARDIOGRAM SRIRAM Tinsley HEADLINE ? Accession#: ?? [id number] : ?1965 57 years Study Date: ?? 03/05/2023 12:16:19 PM Gender: M ?BP: ? 0/0 mmHg Height: 188.00 cm ?BSA: ?2.61 m? ? ? Weight: 139.00 kg ?Tech: ? OLK ? Referring MD: TANIA MIKE Site: ? [facility] Reading Location: ANW OP Patient Location: [...] . This study was interpreted by an [facility] accredited facility. ??Final ?? Procedure Note Luciano Qureshi MD - 03/05/2023 ECHOCARDIOGRAM SRIRAM Tinsley HEADLINE : 1965 57 years Study Date: 03/05/2023 12:16:19 PM Gender: M BP: 0/0 mmHg Height: 188.00 cm BSA: 2.61 m? ? ? Weight: 139.00 kg Tech: ESTEE Referring MD: TANIA MIKE Site: [facility] Reading Location: ANW OP Patient Location: [...] . This study was interpreted by an [facility] accredited facility. Final Tania Mike MD ECHO ORD * XR TIBIA AND FIBULA 2 VIEWS LEFT (03/05/2023 10:52 AM COMMUNICATIONS SUPERINTENDENT) Only the most recent of2 resultswithin the time period is included. Anatomical Region Laterality Modality [facility] Digital Radiogra phy 03/05/2023 11:0 3 AM COMMUNICATIONS SUPERINTENDENT Impressions 03/05/2023 11:03 AM COMMUNICATIONS SUPERINTENDENT No radiographic findings of osteomyelitis. Dictated by Jesse Noland MD @ Mar 05 2023 11:03AM (Electronically Signed) ?? Narrative 03/05/2023 11:03 AM COMMUNICATIONS SUPERINTENDENT For Patients: ??As a result of the [...] IMAGING * BLOOD CULTURE (03/05/2023 9:40 AM COMMUNICATIONS SUPERINTENDENT) Only the most recent of4 resultswithin the time period is included. Pathologist [facility] CULTURE No Growth. 03/10/2023 11:08 AM COMMUNICATIONS SUPERINTENDENT [facility] Blood BLOOD SPECIMEN / Unknown Non-Lab Venipuncture / Unknown 03/05/2023 9:40 AM COMMUNICATIONS SUPERINTENDENT 03/05/2023 9:56 AM COMMUNICATIONS SUPERINTENDENT Dale Bar MD MICROBIOLOGY Performing Organization Address [facility] Co de Phone Number [facility] LABORATORY [address] [place] [address], [place] * IRON PLUS IRON BINDING CAP (03/05/2023 9:40 AM COMMUNICATIONS SUPERINTENDENT) [facility] IRON 67 61 - 157 ug/dL 03/05/2023 10:53 AM COMMUNICATIONS SUPERINTENDENT [facility] UIBC (UNSATURATED) 236 112 - 347 ug/dL 03/05/2023 10:53 AM COMMUNICATIONS SUPERINTENDENT [facility] IRON BINDING CAPACITY 303 250 - 400 ug/dL 03/05/2023 10:53 AM COMMUNICATIONS SUPERINTENDENT [facility] IRON,% SATURATION 22 14 - 50 % 03/05/2023 10:53 AM COMMUNICATIONS SUPERINTENDENT [facility] Blood BLOOD SPECIMEN / Unknown Non-Lab Venipuncture / Unknown 03/05/2023 9:40 AM COMMUNICATIONS SUPERINTENDENT 03/05/2023 9:57 AM COMMUNICATIONS SUPERINTENDENT Dale Bar MD CHEMISTRY Performing Organization Address [facility] Co de Phone Number [facility] [address] [place] [address], [place] * (ABNORMAL) PRO-BNP (03/05/2023 9:40 AM COMMUNICATIONS SUPERINTENDENT) [facility] PRO-BNP 3,605(H) <125 pg/mL 03/05/2023 11:00 AM [facility] Blood BLOOD SPECIMEN / Unknown Non-Lab Venipuncture / Unknown 03/05/2023 9:40 AM COMMUNICATIONS SUPERINTENDENT 03/05/2023 9:57 AM COMMUNICATIONS SUPERINTENDENT Narrative [facility] - 03/05/2023 11:00 AM COMMUNICATIONS SUPERINTENDENT The following cut-points have been suggested for [...] failure. ? Dale Bar MD SEND OUTS [facility] [address] [place] [address], * FERRITIN (03/05/2023 9:40 AM [facility]) Pathologist [facility] FERRITIN 199.0 30.0 - 400.0 ng/mL 03/05/2023 11:22 AM [facility] Blood BLOOD SPECIMEN / Unknown Non-Lab Venipuncture / Unknown 03/05/2023 9:40 AM COMMUNICATIONS SUPERINTENDENT 03/05/2023 9:57 AM COMMUNICATIONS SUPERINTENDENT Dale Bar MD CHEMISTRY Performing Organization Address City/[facility]/ZIP Co de Phone Number [facility] [address] [place] [phone], [place] * (ABNORMAL) HEPATIC FUNCTION PANEL (03/05/2023 9:40 AM COMMUNICATIONS SUPERINTENDENT) ALBUMIN 3.7(L) 4.0 - 4.9 g/dL 03/05/2023 11:00 AM COMMUNICATIONS SUPERINTENDENT [facility] PROTEIN,TOTAL 6.8 6.0 - 8.0 g/dL 03/05/2023 11:00 AM COMMUNICATIONS SUPERINTENDENT [facility] BILIRUBIN,TOTAL 0.7 0.0 - 1.2 mg/dL 03/05/2023 11:00 AM COMMUNICATIONS SUPERINTENDENT [facility] BILIRUBIN,DIRECT 0.2 0.0 - 0.3 mg/dL 03/05/2023 11:00 AM COMMUNICATIONS SUPERINTENDENT [facility] BILIRUBIN,INDIRE CT 0.5 0.2 - 0.8 mg/dL 03/05/2023 11:00 AM COMMUNICATIONS SUPERINTENDENT [facility] ALK PHOSPHATASE 111 40 - 129 IU/L 03/05/2023 11:00 AM [facility] ALT (SGPT) 7(L) 10 - 50 IU/L 03/05/2023 11:00 AM COMMUNICATIONS SUPERINTENDENT [facility] AST (SGOT) 24 10 - 50 IU/L 03/05/2023 11:00 AM [facility] Blood BLOOD SPECIMEN / Unknown Non-Lab Venipuncture / Unknown 03/05/2023 9:40 AM COMMUNICATIONS SUPERINTENDENT 03/05/2023 9:57 AM COMMUNICATIONS SUPERINTENDENT Dale Bar MD CHEMISTRY Performing Organization Address City/[facility]/ZIP Co de Phone Number [facility] [address] [place] [address], [place] * LACTATE SCREEN VENOUS ISTAT W HEATHER (02/12/2023 6:17 PM CDT) Only the most recent of2 resultswithin the time period is included. LACTATE VENOUS SCREEN ISTAT <1.8 <=2.0 02/12/2023 6:19 PM CDT [facility] LACTATE SCREEN VENOUS POCT 1.5 <=2.0 02/12/2023 6:19 PM CDT [facility] Blood BLOOD SPECIMEN / Unknown 02/12/2023 6:17 PM CDT 02/12/2023 6:19 PM CDT Jeni Parra MD LABORATORY Performing Organization Address City/[facility]/ZIP Co de Phone Number [facility] [address] [address], [place] * EXTRA TUBE ROMERO ON ICE (02/12/2023 5:57 PM CDT) Blood BLOOD SPECIMEN / Unknown Non-Lab Venipuncture / Unknown 02/12/2023 5:57 PM CDT 02/12/2023 6:15 PM CDT Jeni Parra MD LABORATORY Performing Organization Address City/[facility]/ZIP Co de Phone Number [facility] [address] [address], [place] * LACTATE VENOUS (02/12/2023 5:57 PM CDT) LACTATE,VENOUS 1.2 0.5 - 2.0 mmol/L 02/12/2023 6:59 PM CDT [facility] Blood BLOOD SPECIMEN / Unknown Non-Lab Venipuncture / Unknown 02/12/2023 5:57 PM CDT 02/12/2023 6:15 PM CDT Jeni Parra MD CHEMISTRY Performing Organization Address City/[facility]/ZIP Co de Phone Number [facility] [address] [place] [address], [place] * (ABNORMAL) COMP METABOLIC PANEL (02/12/2023 5:57 PM CDT) [facility] SODIUM 134(L) 136 - 145 mmol/L 02/12/2023 6:54 PM CDT [facility] POTASSIUM 4.7 3.5 - 5.1 mmol/L 02/12/2023 6:54 PM CDT [facility] CHLORIDE 97(L) 98 - 107 mmol/L 02/12/2023 6:54 PM CDT [facility] CO2,TOTAL 25 22 - 29 mmol/L 02/12/2023 6:54 PM CDT [facility] ANION GAP 12 5 - 18 02/12/2023 6:54 PM CDT [facility] GLUCOSE 266(H) 70 - 99 mg/dL 02/12/2023 6:54 PM CDT [facility] CALCIUM 9.8 8.6 - 10.0 mg/dL 02/12/2023 6:54 PM CDT [facility] BUN 30(H) 6 - 20 mg/dL 02/12/2023 6:54 PM CDT [facility] CREATININE 1.66(H) 0.70 - 1.20 mg/dL 02/12/2023 6:54 PM CDT [facility] BUN/CREAT RATIO 18 10 - 20 6:54 PM CDT [facility] eGFR 48(L) >90 mL/min/1.7 3m2 02/12/2023 6:54 PM CDT [facility] Comment:As of 2021, eG FR is calculated by the CKD-EPI creatinine equation without race adjustment. ??eGFR can be influenced by muscle mass, exercise, and diet. ??The reported eGFR is an estimation only and is only applicable if the renal function is stable. ALBUMIN 4.1 4.0 - 4.9 g/dL 02/12/2023 6:54 PM CDT [facility] PROTEIN,TOTAL 6.9 6.0 - 8.0 g/dL 02/12/2023 6:54 PM CDT [facility] BILIRUBIN,TOTAL 0.7 0.0 - 1.2 mg/dL 02/12/2023 6:54 PM CDT [facility] ALK PHOSPHATASE 114 40 - 129 IU/L 02/12/2023 6:54 PM CDT [facility] ALT (SGPT) 10 10 - 50 IU/L 02/12/2023 6:54 PM CDT [facility] AST (SGOT) 20 10 - 50 IU/L 02/12/2023 6:54 PM CDT [facility] Blood BLOOD SPECIMEN / Unknown Non-Lab Venipuncture / Unknown 02/12/2023 5:57 PM CDT 02/12/2023 6:15 PM CDT Jeni Parra MD CHEMISTRY [facility] [address] [address], from Last 3 Months Advance Directives Documents on File Type Date Recorded 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 02/14/23 Laboratory--[facility] Laboratory 03/21/22 [facility] Program Manager Advanced Heart Failure/Transplant Card 03/27/22
--- OUTSIDE RECORDS SUMMARY | 2023-05-02 13:43 | XMS_ITS ---
Care Plan - [facility] Created on: May 02, 2023 HEADLINE, GREGG Tinsley : 1965 Sex: Male Author Name Unknown Address [address] [place] [address] Phone [facility] da Address [address] [place] [address] Phone Care Team Providers Care Abstract Checker Name Role Phone Unavailable Unavailable Unavailable
== END 2023-05-02 13:02 | disposition home or self-care (01) ==
LOC: WOUND 13:01
PROVIDERS: PCP Family Medicine; Visit Provider Surgery
DX: I87.312 Chronic venous hypertension (idiopathic) with ulcer of left lower extremity (principal); L97.828 Non-pressure chronic ulcer of other part of left lower leg with other specified severity
CPT/HCPCS: 97597

== ENCOUNTER 2023-05-09 14:59 | Outpatient (CLI) | payer MEDICARE, MEDICAID, SELFPAY ==
--- OUTSIDE RECORDS SUMMARY | 2023-05-09 15:01 | XMS_ITS ---
Author Name Unknown Address [address] [place] [address] Phone [facility] da Address [address] [place] [address] Phone Care Team Providers Care Yoga Teacher Name Role Phone Unavailable Unavailable Unavailable Plan of Treatment No Plan of Treatment Recorded Assessments Includes: Assessments for all patient encounters No Assessments Recorded Medical Equipment - Implanted Devices Includes: Current and historical Devices No Medical Equipment Recorded Medications Administered Includes: Administered Medications in patient's chart No Administered Medications Recorded Results Includes: Results from 05/09/2022 through 05/09/2023 No Results Recorded For Specified Dates History [...] Relationship Effect stewart Dates 1 - MEDICARE [id number] GREGG Tinsley HEADLINE Self Clinical Notes Includes: Signed Clinical Notes starting from 03/24/2022 No Clinical Notes Recorded
--- OUTSIDE RECORDS SUMMARY | 2023-05-09 15:01 | XMS_ITS | Clinical Summary ---
Author Name Unknown Organization [facility] Address [place], [place] [address] Care Team Providers Care Product Director Name Role Phone Luciano Candelaria MD Primary Care Provider + Tania Mike MD Unavailable [phone] Huang Brady MD Unavailable Coordinators, Vad Unavailable [phone] Staff, Other Clinical Unavailable Unavailabl e [...] mouth once daily 90 Tablet 0 04/11/20 Active warfarin (COUMADIN) 1 mg tabletIndications :LVAD (left ventricular assist device) present (HC) Take 4 mg by mouth on Sunday/Sunday/ Sunday and 3 mg all other days. 300 Tablet 3 05/07/19 24 Active amiodarone (CORDARONE) 200 mg tabletIndications :Atrial fibrillation status post cardioversion (HC) Take 1 Tablet (200 mg) by mouth once daily. 90 Tablet 2 03/07/20 23 023 Discontinued warfarin (COUMADIN) 1 mg tabletIndications :LVAD (left ventricular assist device) present (HC) Take 4 mg Sunday/Sunday and 3 mg all other days. 0 03/30/20 23 024 Discontinued(*M edication adjustment) warfarin (COUMADIN) 1 mg tabletIndications :LVAD (left ventricular assist device) present (HC) Take 4 mg by mouth on Sunday/Sunday/ Sunday and 3 mg all other days. 360 Tablet 3 04/20/19 24 024 Discontinued(Re order (E-cancel not sent)) Active Problems Problem Noted Date Diagnosed Date [...] via sternotomy, off pump on 01/05/22 as mcfp use CV Surgeon: Dr. Huang Brady Primary HF/VAD Billet Cutter: Dr. Tania Mike Primary VAD Coordinator: VAD EMERGENCY Referring MD: Leland PAD Goal <28 01/03/2021 Overview: CardioMEMs device implanted on 12/31/20. Primary grease maker head is Dr. Mike . CardioMEMs is MRI [...] BMI 40-44 posted on 05/08 at 09:15 BLOCKER AND SEWER. 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 [...] Encounters Date Type Department Care Team Description 05/07/2023 Orders Only [facility] [address] [place] [address] Tina Tellez RN <No scans attached> 05/04/2023 Orders Only [facility] [address] [place] [address] Jeni Godoy RN <No scans attached> 05/04/2023 Telephone [facility] [address] [place] [address] Jeni Godoy RN Anticoagulation (INR 2.4) 04/27/2023 Telephone [facility] [address] [place] [phone] 90 Yary Christian RN Anticoagulation (INR 2.2) 04/20/2023 Telephone [facility] [address] [place] [phone] Tina Tellez RN Anticoagulation (INR 1.8) 04/11/2023 Refill [facility] [address] [place] [phone] Rafael Bunch MD Refill Request (Amiodarone) 04/06/2023 Telephone [facility] [address] Bill [address] [phone] Tina Tellez RN Anticoagulation (INR 2.1) 04/05/2023 Orders Only [facility] Scanner 1 scan: (1-Ord) INCOMING RECORDS-LABS, [facility], 04/05/2023 04/05/[address] [facility] [address] [facility] [address] [place] [address] Lilliam Tesfaye MD 03/30/2023 Telephone [facility] [address] [place] [phone] Tesha Parr RN Anticoagulation (INR 1.8) 03/23/2023 Telephone [facility] [address] Bill [address] [phone] Jeni Godoy RN Anticoagulation (INR 1.8) 03/16/2023 Telephone [facility] [address] Bill [address] [phone] Jeni Godoy RN Anticoagulation (INR 2) 03/13/2023 Orders Only [facility] [address] [phone] Tania Mike MD <No scans attached> 03/12/2023 Telephone [facility] [address] [place] [phone] Tina Tellez RN Anticoagulation (INR 2.0) 03/09/2023 Telephone [facility] [address] [place] [phone] Yary Christian RN Anticoagulation (INR 2.0) 03/05/2023 1:33 PM BLOCKER AND SEWER - 03/07/2023 3:42 PM [employer]ER AND SEWER Hospital Encounter [facility] [address] [place] [address] Lorri Gaines MD [place], Barry McLeod, MD HTN (hypertension) (Primary Dx); Diabetic ulcer of left talamantes (HC); LVAD (left ventricular assist device) present (HC); Atrial fibrillation status post cardioversion (HC); Chronic combined systolic (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); Unspecified open wound, left lower leg, initial encounter Discharge Disposition: Home Health 03/05/2023 10:00 AM BLOCKER AND SEWER Office Visit [facility] [address] [phone] Dale Bar MD LVAD 03/05/2023 9:30 AM BLOCKER AND SEWER Orders Only [facility] [address] [phone] Lab 03/05/2023 Office Visit [facility] [address] [phone] Angy Pavon, MadhaviD Medication Management 03/05/2023 Travel 03/02/2023 Telephone [facility] [address] [facility] [address] [place] [phone] Tina Tellez RN Anticoagulation (INR 2.6) 03/02/2023 Orders Only [facility] [address] [place] [phone] Dale Bar MD <No scans attached> 02/23/2023 Telephone [facility] [address] [phone] Tina Tellez RN Anticoagulation (INR 2.0) 02/16/2023 10:50 AM CDT Orders Only [facility] [address] [place] [address] Lab, Leah Lab 02/16/2023 Telephone [facility] [address] [phone] Jeni Godoy RN Anticoagulation (INR 2.1) 02/16/2023 Travel 02/13/2023 Telephone [facility] [address] [phone] Jeni Godoy RN Anticoagulation (INR 3.9) 02/12/2023 5:38 PM CDT - 02/12/2023 8:15 PM CDT Emergency [facility] Emergency Department [address] [place] [address] Jeni Parra MD Leg wound, left, initial [...] PM CDT Pulse 85 03/07/2023 1:00 PM BLOCKER AND SEWER Temperature 36.8 ??C (98.2 ??F) 03/07/2023 8:50 AM CS T Respiratory Rate 20 03/07/2023 1:00 PM BLOCKER AND SEWER Oxygen Saturation 95% 03/06/2023 11:00 PM BLOCKER AND SEWER Inhaled Oxygen Concentration - - Weight 133.6 kg (294 lb 8 oz) 03/07/2023 6:00 AM BLOCKER AND SEWER Height 188 cm (6' 2) 03/07/2023 6:00 AM BLOCKER AND SEWER Body Mass Index 37.81 03/07/2023 6:00 AM BLOCKER AND SEWER Plan of Treatment Upcoming Encounters Date Type Department Care Team (Late st Contact Info) Description 05/10/2023 10:10 AM BLOCKER AND SEWER Orders Only [address] [phone] Lab, [facility] 05/14/2023 10:00 AM BLOCKER AND SEWER Office Visit [facility] [address] [facility] [address] [place] [phone] Dale Bar MD [address] [facility] [address] [place] [address] 07/04/2023 Cardiac Device Check [facility] [phone] Health Maintenance Due Date Last Done Comments Hepatitis B series for Diabe chirag (1 of 3 - 3-dose series) 1965 Pneumococcal series for age 6-64 (1 of 2 - PCV) 11/04/1971 Tdap 1976 Depression screening for age 12+ 1977 Tetanus booster 1985 Zoster (shingles) series for age 50+ (1 of 2) 11/04/2015 COVID-19 vaccine series (3 - season) 2022 07/24/2020, 07/03/2020 Influenza for age 50-64 12/15/2022 BMI (ht and wt on same day) for age 18+ 09/21/2023 09/20/2022, 08/25/2022, 07/12/2022, Additional history exists Lipids for age 45-75 01/16/2028 01/15/2023, 10/20/2022, 10/03/2021, Additional history exists Colonoscopy through age 75 01/03/2032 01/02/2022, HIV for age 15-65 Completed 10/03/2021 Hepatitis C screening for ag e 18-79 Completed 10/03/2021 Medical Devices Implanted Type [employer] Device Identifier Shelf Expiration Date Model / Serial / Lot Cardiomems-12/31 Implanted:12/31 (Quantity not on file) CardioMEMS [id number] - [id number] Implanted:Qty: 1 on 01/24/2017 by Richie Watkins MD at [facility] [employer] 08/11/2018 [id number] / / [id number] Description:Ventralex ST Her sebastian Patch Pump Lvad Heartmate 3 Kit - [id number], [id number] Implanted:Qty: 1 on 01/05/2022 by Huang Brady MD at [facility] N/A: Heart [employer] 02/18/2023 [id number] / [id number] , [id number] / Procedures Procedure Name Priority Date/Time Associated Diagnosis Comments SCAN CORRESP-LABORATORY RESULTS 04/05/2023 12:00 AM BLOCKER AND SEWER GLUCOSE METER Timed 03/07/2023 1:01 PM BLOCKER AND SEWER GLUCOSE METER Timed 03/07/2023 7:33 AM BLOCKER AND SEWER MAGNESIUM SOLANGE 03/07/2023 4:42 AM BLOCKER AND SEWER CBC WITH AUTO DIFFERENTIAL Early AM 03/07/2023 4:42 AM BLOCKER AND SEWER PROTIME-INR Early AM 03/07/2023 4:42 AM BLOCKER AND SEWER BASIC METABOLIC PANEL Early AM 03/07/2023 4:42 AM BLOCKER AND SEWER CBC WITH AUTO DIFFERENTIAL Early AM 03/07/2023 4:42 AM BLOCKER AND SEWER GLUCOSE METER Timed 03/06/2023 9:30 PM BLOCKER AND SEWER SCAN-CARDIAC STRIP 03/06/2023 7: 11 PM BLOCKER AND SEWER AEROBIC BACTERIAL CULTURE, STAIN Today 03/06/2023 6:53 PM BLOCKER AND SEWER GLUCOSE METER Timed 03/06/2023 6:30 PM [address] LOWER EXTREMITY LEFT W Routine 03/06/2023 6:20 PM BLOCKER AND SEWER GLUCOSE METER Timed 03/06/2023 11:22 AM BLOCKER AND SEWER GLUCOSE METER Timed 03/06/2023 7:23 AM BLOCKER AND SEWER MAGNESIUM SOLANGE 03/06/2023 4:54 AM BLOCKER AND SEWER CBC WITH AUTO DIFFERENTIAL Early AM 03/06/2023 4:54 AM BLOCKER AND SEWER PROTIME-INR Early AM 03/06/2023 4:54 AM BLOCKER AND SEWER BASIC METABOLIC PANEL Early AM 03/06/2023 4:54 AM BLOCKER AND SEWER CBC WITH AUTO DIFFERENTIAL Early AM 03/06/2023 4:54 AM BLOCKER AND SEWER GLUCOSE METER Timed 03/05/2023 9:50 PM BLOCKER AND SEWER SCAN-CARDIAC STRIP 03/05/2023 7: 29 PM BLOCKER AND SEWER GLUCOSE METER Timed 03/05/2023 5:20 PM BLOCKER AND SEWER PROTIME-INR Early AM 03/05/2023 3:46 PM BLOCKER AND SEWER BASIC METABOLIC PANEL SOLANGE 03/05/2023 3:46 PM BLOCKER AND SEWER XR TIBIA AND FIBULA 2 VIEWS LEFT PORTABLE Routine 03/05/2023 3:25 PM BLOCKER AND SEWER COVID-19 MOLECULAR Today 03/05/2023 3: 23 PM BLOCKER AND SEWER ECHO TTE LIMITED WO CONTRAST W COLOR W LTD DOPPLER Routine 03/05/2023 12:45 PM BLOCKER AND SEWER LVAD (left ventricular assist device) present (HC) XR TIBIA AND FIBULA 2 VIEWS LEFT SOLANGE 03/05/2023 10:52 AM BLOCKER AND SEWER Diabetic ulcer of left talamantes (HC) BLOOD CULTURE Routine 03/05/2023 9:40 AM BLOCKER AND SEWER Wound infection CBC WITH AUTO DIFFERENTIAL Routine 03/05/2023 9:40 AM BLOCKER AND SEWER Chronic combined systolic (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) BLOOD CULTURE Routine 03/05/2023 9:40 AM BLOCKER AND SEWER Wound infection PRO-BNP Routine 03/05/2023 9:40 AM BLOCKER AND SEWER Chronic combined systolic (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) FERRITIN Routine 03/05/2023 9:40 AM BLOCKER AND SEWER Iron deficiency IRON PLUS IRON BINDING CAP Routine 03/05/2023 9:40 AM BLOCKER AND SEWER Iron deficiency BASIC METABOLIC PANEL Routine 03/05/2023 9:40 AM BLOCKER AND SEWER Chronic combined systolic (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) PROTIME-INR Routine 03/05/2023 9:40 AM BLOCKER AND SEWER LVAD (left ventricular assist device) present (HC) HEPATIC FUNCTION PANEL Routine 03/05/2023 9:40 AM BLOCKER AND SEWER Chronic combined systolic (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) MAGNESIUM Routine 03/05/2023 9:40 AM BLOCKER AND SEWER Chronic combined systolic (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) CBC WITH AUTO DIFFERENTIAL Routine 03/05/2023 9:40 AM BLOCKER AND SEWER Chronic combined systolic (congestive) and diastolic (congestive) [...] * SCAN CORRESP-LABORATORY RESULTS (04/05/2023 12:00 AM BLOCKER AND SEWER) Scanner OTHER * (ABNORMAL) GLUCOSE METER (03/07/2023 1:01 PM BLOCKER AND SEWER) Only the most recent of8 resultswithin the time period is included. GLUCOSE METER 153(H) 65 - 100 mg/dL 03/07/2023 1:05 PM BLOCKER AND SEWER [facility] Blood BLOOD SPECIMEN / Unknown 03/07/2023 1:01 PM BLOCKER AND SEWER 03/07/2023 1:05 PM BLOCKER AND SEWER Tania Mike MD CHEMISTRY [facility] [address] [place] [address], * (ABNORMAL) CBC WITH AUTO DIFFERENTIAL (03/07/2023 4:42 AM BLOCKER AND SEWER) Only the most recent of4 resultswithin the time period is included. WHITE BLOOD COUNT 8.3 4.5 - 11.0 thou/cu mm 03/07/2023 5:57 AM [facility] RED BLOOD COUNT 6.34(H) 4.30 - 5.90 mil/cu mm 03/07/2023 5:57 AM [facility] HEMOGLOBIN 18.7(H) 13.5 - 17.5 g/dL 03/07/2023 5:57 AM [facility] HEMATOCRIT 54.4(H) 37.0 - 53.0 % 03/07/2023 5:57 AM [facility] MCV 86 80 - 100 fL 03/07/2023 5:57 AM [facility] MCH 29.5 26.0 - 34.0 pg 03/07/2023 5:57 AM [facility] MCHC 34.4 32.0 - 36.0 g/dL 03/07/2023 5:57 AM [facility] RDW 15.3 11.5 - 15.5 % 03/07/2023 5:57 AM [facility] PLATELET COUNT 153 140 - 440 thou/cu mm 03/07/2023 5:57 AM [facility] MPV 10.2 6.5 - 11.0 fL 03/07/2023 5:57 AM [facility] NRBC 0.0 % 03/07/2023 5:57 AM [facility] ABS NRBC 0.0 thou /cu mm 03/07/2023 5:57 AM [facility] % NEUT 59.6 % 03/07/2023 5:57 AM [facility] % LYMPH 27.6 % 03/07/2023 5:57 AM [facility] % MONO 9.4 % 03/07/2023 5:57 AM [facility] % EOS 1.9 % 03/07/2023 5:57 AM [facility] % BASO 1.1 % 03/07/2023 5:57 AM [facility] % IMMATURE GRAN (METAS,MYELOS,RI OS) 0.4 % 03/07/2023 5:57 AM [facility] ABSOLUTE NEUTROPHILS 5.0 1.7 - 7.0 thou/cu mm 03/07/2023 5:57 AM [facility] ABSOLUTE LYMPHOCYTES 2.3 0.9 - 2.9 thou/cu mm 03/07/2023 5:57 AM [facility] ABSOLUTE MONOCYTES 0.8 <0.9 thou/cu mm 03/07/2023 5:57 AM [facility] ABSOLUTE EOSINOPHILS 0.2 <0.5 thou/cu mm 03/07/2023 5:57 AM [facility] ABSOLUTE BASOPHILS 0.1 <0.3 thou/cu mm 03/07/2023 5:57 AM [facility] ABSOLUTE IMMATURE GRANULOCYTES(MET ,MYELOS,PROS) 0.0 <0.3 thou/cu mm 03/07/2023 5:57 AM BLOCKER AND SEWER [facility] TR[facility] Blood BLOOD SPECIMEN / Unknown Line/Port / Unknown 03/07/2023 4:42 AM BLOCKER AND SEWER 03/07/2023 5:50 AM BLOCKER AND SEWER Dale Bar MD HEMATOLOGY Performing Organization Address [facility] Co de Phone Number [facility] [address] [place] [address], [place] * (ABNORMAL) Protime - INR (03/07/2023 4:42 AM BLOCKER AND SEWER) Only the most recent of6 resultswithin the time period is included. INR 2.4(H) <1.3 03/07/2023 6:18 AM BLOCKER AND SEWER [facility] PROTIME 26.4(H) 10.3 - 12.3 sec 03/07/2023 6:18 AM BLOCKER AND SEWER [facility] Blood BLOOD SPECIMEN / Unknown Line/Port / Unknown 03/07/2023 4:42 AM BLOCKER AND SEWER 03/07/2023 5:50 AM BLOCKER AND SEWER Narrative [facility] - 03/07/2023 6:18 AM BLOCKER AND SEWER ?Therapeutic Range 2.0-3.0 for most anticoagulated patients [...] Dale Bar MD HEMATOLOGY Performing Organization Address [facility] Co de Phone Number [facility] [address] [place] [address], [place] * MAGNESIUM (03/07/2023 4:42 AM BLOCKER AND SEWER) Only the most recent of3 resultswithin the time period is included. MAGNESIUM 1.8 1.6 - 2.6 mg/dL 03/07/2023 8:00 AM [facility] Blood BLOOD SPECIMEN / Unknown Line/Port / Unknown 03/07/2023 4:42 AM BLOCKER AND SEWER 03/07/2023 5:50 AM BLOCKER AND SEWER Tania Mike MD CHEMISTRY [facility] [address] [place] [address], * (ABNORMAL) BASIC METABOLIC PANEL (03/07/2023 4:42 AM BLOCKER AND SEWER) Only the most recent of4 resultswithin the time period is included. SODIUM 134(L) 136 - 145 mmol/L 03/07/2023 6:25 AM [facility] POTASSIUM 3.8 3.5 - 5.1 mmol/L 03/07/2023 6:25 AM [facility] CHLORIDE 95(L) 98 - 107 mmol/L 03/07/2023 6:25 AM [facility] CO2,TOTAL 25 22 - 29 mmol/L 03/07/2023 6:25 AM [facility] ANION GAP 14 5 - 18 03/07/2023 6:25 AM [facility] GLUCOSE 187(H) 70 - 99 mg/dL 03/07/2023 6:25 AM [facility] CALCIUM 9.3 8.6 - 10.0 mg/dL 03/07/2023 6:25 AM [facility] BUN 30(H) 6 - 20 mg/dL 03/07/2023 6:25 AM [facility] CREATININE 1.67(H) 0.70 - 1.20 mg/dL 03/07/2023 6:25 AM [facility] BUN/CREAT RATIO 18 10 - 20 6:25 AM [facility] eGFR 47(L) >90 mL/min/1.7 3m2 03/07/2023 6:25 AM [facility] Comment:As of 2021, eG FR is calculated by the CKD-EPI creatinine equation without race adjustment. ??eGFR can be influenced by muscle mass, exercise, and diet. ??The reported eGFR is an estimation only and is only applicable if the renal function is stable. Blood BLOOD SPECIMEN / Unknown Line/Port / Unknown 03/07/2023 4:42 AM BLOCKER AND SEWER 03/07/2023 5:50 AM BLOCKER AND SEWER Dale Bar MD [facility] [address] [place] [address], * SCAN-CARDIAC STRIP (03/06/2023 7:11 PM BLOCKER AND SEWER) Scanner OTHER * (ABNORMAL) AEROBIC BACTERIAL CULTURE, STAIN (03/06/2023 6:53 PM BLOCKER AND SEWER) CULTURE RESULT(A) 03/09/2023 10:37 AM BLOCKER AND SEWER [facility] [employer] [facility] LABORATORY-C ENTRAL LABORATORY CULTURE 1+ Enterobacter cloacae complex 03/09/2023 10:37 AM BLOCKER AND SEWER [facility] Comment: May develop resistance during prolonged therapy with 3rd-generation cephalosporins as a result of derepression of AmpC beta-lactamase. ??Therefore, isolates that are initially susceptible may become resistant within 3 to 4 days after initiation of therapy. ??Testing repeat isolates may be warranted. Oral cephalosporins are also not recommended. CULTURE 2+ Mixed inga present 03/09/2023 10:37 AM BLOCKER AND SEWER [facility] LABORATORY-C ENTRAL LABORATORY GRAM STAIN No PMNs 03/09/2023 10:37 AM BLOCKER AND SEWER [facility] ENTRAL LABORATORY GRAM STAIN 1+ Gram Positive Cocci 03/09/2023 10:37 AM BLOCKER AND SEWER [facility] ENTRAL LAB[facility] GRAM STAIN No Epithelial cells 03/09/2023 10:37 AM BLOCKER AND SEWER [facility] EN[facility]AL LAB[facility] GRAM STAIN No RBCs 03/09/2023 10:37 AM BLOCKER AND SEWER [facility] ENTRAL LAB[facility]AT[facility] Other (Other) Non-Blood / Unknown 03/06/2023 6:53 PM BLOCKER AND SEWER 03/06/2023 6:59 PM BLOCKER AND SEWER Narrative [facility] - 03/09/2023 10:37 AM BLOCKER AND SEWER Mixed inga; No Staphylococcus aureus, beta-Streptococcus, Streptococcus [...] MEROPENEM <=0.25: S Alla Bruner NP MICROBIOLOGY [facility] [address] [place] [place] [address], [place] * CT LOWER EXTREMITY LEFT W (03/06/2023 6:20 PM BLOCKER AND SEWER) Anatomical Region Laterality Modality FEMUR L, KNEE L, ANKLE L, FOOT L Computed Tomography 03/07/2023 5:40 AM BLOCKER AND SEWER Impressions 03/07/2023 5:40 AM BLOCKER AND SEWER 1. Infiltration of the subcutaneous tissues of [...] AM (Electronically Signed) Narrative 03/07/2023 5:40 AM BLOCKER AND SEWER For Patients: ??As a result of the [...] of the left lower leg. 100 mL [id number] intravenous contrast was administered. COMPARISON: Radiographs 03/05/2023. [...] CT * SCAN-CARDIAC STRIP (03/05/2023 7:29 PM BLOCKER AND SEWER) Scanner OTHER * XR TIBIA AND FIBULA 2 VIEWS LEFT PORTABLE (03/05/2023 3:25 PM BLOCKER AND SEWER) Anatomical Region Laterality Modality [facility] Digital Radiogra phy 03/05/2023 3:38 PM BLOCKER AND SEWER Impressions 03/05/2023 3:38 PM BLOCKER AND SEWER No bone destruction to suggest osteomyelitis. Dictated by Jesse Noladn MD @ Mar 05 2023 ??3:38PM (Electronically Signed) ?? Narrative 03/05/2023 3:38 PM BLOCKER AND SEWER For Patients: ??As a result of the [...] IMAGING * COVID-19 MOLECULAR (03/05/2023 3:23 PM BLOCKER AND SEWER) COVID 19 [facility] MOLECULAR Negative Negative 03/05/2023 5:18 PM BLOCKER AND SEWER [facility]-CE NTRAL LABORATORY Comment:All PCR tests are brown bject to false negative result due to variability in viral load and collection technique. A negative result does not rule out a SARS-CoV-2 infection. Clinical correlation required. TESTING LABORATORY [facility] 03/05/2023 5:18 PM BLOCKER AND SEWER [facility] LABORAT[facility]- NTRAL LABORATORY Comment:Specimen submitted t o [facility] for testing. Other SPECIMEN FROM NASOPHARYNGEAL STRUCTURE / Unknown Non-Blood / Unknown 03/05/2023 3:23 PM BLOCKER AND SEWER 03/05/2023 3:38 PM BLOCKER AND SEWER Narrative [facility] - 03/05/2023 5:18 PM BLOCKER AND SEWER This test has been authorized by FDA [...] or revoked sooner. Alla Bruner NP MICROBIOLOGY [facility] [address] [place] [address], * ECHO TTE LIMITED WO CONTRAST W COLOR W LTD DOPPLER (03/05/2023 12:45 PM BLOCKER AND SEWER) LVEDD 6.7 cm EJECTION FRACTION 20 - 25% Anatomical Region Laterality Modality Ultrasound 03/05/2023 12:1 6 PM BLOCKER AND SEWER Narrative 03/05/2023 4:42 PM BLOCKER AND SEWER ECHOCARDIOGRAM SRIRAM D HEADLINE ? Accession#: ?? [id number] : ?1965 57 years Study Date: ?? 03/05/2023 12:16:19 PM Gender: M ?BP: ? 0/0 mmHg Height: 188.00 cm ?BSA: ?2.61 m? ? ? Weight: 139.00 kg ?Tech: ? OLK ? Referring MD: TANIA MIKE Site: ? [facility] Reading Location: ANW OP Patient Location: Outpatient. [...] . This study was interpreted by an [facility] accredited facility. ??Final ?? Procedure Note Luciano Qureshi MD - 03/05/2023 ECHOCARDIOGRAM SRIRAM Tinsley HEADLINE : 1965 57 years Study Date: 03/05/2023 12:16:19 PM Gender: M BP: 0/0 mmHg Height: 188.00 cm BSA: 2.61 m? ? ? Weight: 139.00 kg Tech: ESTEE Luo MD: TANIA MIKE Site: [facility] Reading Location: ANW OP Patient Location: Outpatient. [...] . This study was interpreted by an [facility] accredited facility. Final Tania Mike MD ECHO ORD * XR TIBIA AND FIBULA 2 VIEWS LEFT (03/05/2023 10:52 AM BLOCKER AND SEWER) Only the most recent of2 resultswithin the time period is included. Anatomical Region Laterality Modality [employer] 03/05/2023 11:0 3 AM BLOCKER AND SEWER Impressions 03/05/2023 11:03 AM BLOCKER AND SEWER No radiographic findings of osteomyelitis. Dictated by Jesse Noland MD @ Mar 05 2023 11:03AM (Electronically Signed) ?? Narrative 03/05/2023 11:03 AM BLOCKER AND SEWER For Patients: ??As a result of the [...] IMAGING * BLOOD CULTURE (03/05/2023 9:40 AM BLOCKER AND SEWER) Only the most recent of4 resultswithin the time period is included. CULTURE No Growth. 03/10/2023 11:08 AM BLOCKER AND SEWER [facility] Blood BLOOD SPECIMEN / Unknown Non-Lab Venipuncture / Unknown 03/05/2023 9:40 AM BLOCKER AND SEWER 03/05/2023 9:56 AM BLOCKER AND SEWER Dale Bar MD MICROBIOLOGY [facility] [address], [place] [address], * IRON PLUS IRON BINDING CAP (03/05/2023 9:40 AM BLOCKER AND SEWER) IRON 67 61 - 157 ug/dL 03/05/2023 10:53 AM BLOCKER AND SEWER [facility] UIBC (UNSATURATED) 236 112 - 347 ug/dL 03/05/2023 10:53 AM BLOCKER AND SEWER [facility] IRON BINDING CAPACITY 303 250 - 400 ug/dL 03/05/2023 10:53 AM BLOCKER AND SEWER [facility] IRON,% SATURATION 22 14 - 50 % 03/05/2023 10:53 AM BLOCKER AND SEWER [facility] Blood BLOOD SPECIMEN / Unknown Non-Lab Venipuncture / Unknown 03/05/2023 9:40 AM BLOCKER AND SEWER 03/05/2023 9:57 AM BLOCKER AND SEWER Dale Bar MD CHEMISTRY [facility] [address] [place] [address], * (ABNORMAL) PRO-BNP (03/05/2023 9:40 AM BLOCKER AND SEWER) PRO-BNP 3,605(H) <125 pg/mL 03/05/2023 11:00 AM BLOCKER AND SEWER [facility] Blood BLOOD SPECIMEN / Unknown Non-Lab Venipuncture / Unknown 03/05/2023 9:40 AM BLOCKER AND SEWER 03/05/2023 9:57 AM BLOCKER AND SEWER Narrative [facility] - 03/05/2023 11:00 AM BLOCKER AND SEWER The following cut-points have been suggested for [...] failure. ? Dale Bar MD SEND OUTS Performing Organization Address [facility] Co de Phone Number [facility] [address] [place] [address], * FERRITIN (03/05/2023 9:40 AM BLOCKER AND SEWER) FERRITIN 199.0 30.0 - 400.0 ng/mL 03/05/2023 11:22 AM BLOCKER AND SEWER [facility] Blood BLOOD SPECIMEN / Unknown Non-Lab Venipuncture / Unknown 03/05/2023 9:40 AM BLOCKER AND SEWER 03/05/2023 9:57 AM BLOCKER AND SEWER Dale Bar MD CHEMISTRY Performing Organization Address [facility] de Phone Number [facility] [address] [place] [address], * (ABNORMAL) HEPATIC FUNCTION PANEL (03/05/2023 9:40 AM BLOCKER AND SEWER) ALBUMIN 3.7(L) 4.0 - 4.9 g/dL 03/05/2023 11:00 AM BLOCKER AND SEWER [facility] PROTEIN,TOTAL 6.8 6.0 - 8.0 g/dL 03/05/2023 11:00 AM BLOCKER AND SEWER [facility] BILIRUBIN,TOTAL 0.7 0.0 - 1.2 mg/dL 03/05/2023 11:00 AM BLOCKER AND SEWER [facility] [employer] [facility] BILIRUBIN,DIRECT 0.2 0.0 - 0.3 mg/dL 03/05/2023 11:00 AM [facility] BILIRUBIN,INDIRE CT 0.5 0.2 - 0.8 mg/dL 03/05/2023 11:00 AM [facility]AL [facility] ALK PHOSPHATASE 111 40 - 129 IU/L 03/05/2023 11:00 AM [facility] ALT (SGPT) 7(L) 10 - 50 IU/L 03/05/2023 11:00 AM BLOCKER AND SEWER [facility] AST (SGOT) 24 10 - 50 IU/L 03/05/2023 11:00 AM [facility] Blood BLOOD SPECIMEN / Unknown Non-Lab Venipuncture / Unknown 03/05/2023 9:40 AM BLOCKER AND SEWER 03/05/2023 9:57 AM BLOCKER AND SEWER Dale Bar MD CHEMISTRY Performing Organization Address City/[facility]/ZIP Co de Phone Number [facility] [address] [place] [id number], [place] * LACTATE SCREEN VENOUS ISTAT W ROMERO (02/12/2023 6:17 PM CDT) Only the most recent of2 resultswithin the time period is included. LACTATE VENOUS SCREEN ISTAT <1.8 <=2.0 02/12/2023 6:19 PM CDT [facility] LACTATE SCREEN VENOUS POCT 1.5 <=2.0 02/12/2023 6:19 PM CDT [facility] Blood BLOOD SPECIMEN / Unknown 02/12/2023 6:17 PM CDT 02/12/2023 6:19 PM CDT Jeni Parra MD LABORATORY Performing Organization Address City/[facility]/ZIP Co de Phone Number [facility] [address] [place] [id number], [place] * EXTRA TUBE ROMERO ON ICE (02/12/2023 5:57 PM CDT) Blood BLOOD SPECIMEN / Unknown Non-Lab Venipuncture / Unknown 02/12/2023 5:57 PM CDT 02/12/2023 6:15 PM CDT Jeni Parra MD LABORATORY [facility] [address] [place] [address], * LACTATE VENOUS (02/12/2023 5:57 PM CDT) LACTATE,VENOUS 1.2 0.5 - 2.0 mmol/L 02/12/2023 6:59 PM CDT [facility] Blood BLOOD SPECIMEN / Unknown Non-Lab Venipuncture / Unknown 02/12/2023 5:57 PM CDT 02/12/2023 6:15 PM CDT Jeni Parra MD CHEMISTRY Performing Organization Address City/[facility]/ZIP Co de Phone Number [facility] [address] [place] [address], * (ABNORMAL) COMP METABOLIC PANEL (02/12/2023 5:57 PM CDT) SODIUM 134(L) 136 - 145 mmol/L 02/12/2023 6:54 PM CDT [facility] POTASSIUM 4.7 3.5 - 5.1 mmol/L 02/12/2023 6:54 PM CDT [facility] CHLORIDE 97(L) 98 - 107 mmol/L 02/12/2023 6:54 PM CDT [facility] CO2,TOTAL 25 22 - 29 mmol/L 02/12/2023 6:54 PM CDT [facility] ANION GAP 12 5 - 18 02/12/2023 6:54 PM CDT [facility] GLUCOSE 266(H) 70 - 99 mg/dL 02/12/2023 6:54 PM CDT [facility] CALCIUM 9.8 8.6 - 10.0 mg/dL 02/12/2023 6:54 PM CDT [facility] BUN 30(H) 6 - 20 mg/dL 02/12/2023 6:54 PM CDT [facility] CREATININE 1.66(H) 0.70 - 1.20 mg/dL 02/12/2023 6:54 PM CDT [facility] BUN/CREAT RATIO 18 10 - 20 6:54 PM CDT [facility] eGFR 48(L) >90 mL/min/1.7 3m2 02/12/2023 6:54 PM CDT [facility] Comment:As of 2021, eG FR is calculated by the CKD-EPI creatinine equation without race adjustment. ??eGFR can be influenced by muscle mass, exercise, and diet. ??The reported eGFR is an estimation only and is only applicable if the renal function is stable. ALBUMIN 4.1 4.0 - 4.9 g/dL 02/12/2023 6:54 PM CDT [facility] PROTEIN,TOTAL 6.9 6.0 - 8.0 g/dL 02/12/2023 6:54 PM CDT [facility] BILIRUBIN,TOTAL 0.7 0.0 - 1.2 mg/dL 02/12/2023 6:54 PM CDT [facility] ALK PHOSPHATASE 114 40 - 129 IU/L 02/12/2023 6:54 PM CDT [facility] ALT (SGPT) 10 10 - 50 IU/L 02/12/2023 6:54 PM CDT [facility] AST (SGOT) 20 10 - 50 IU/L 02/12/2023 6:54 PM CDT [facility] Blood BLOOD SPECIMEN / Unknown Non-Lab Venipuncture / Unknown 02/12/2023 5:57 PM CDT 02/12/2023 6:15 PM CDT Jeni Parra MD CHEMISTRY [facility] [address] [place] [address], from Last 3 Months Advance Directives Documents on File Type Date Recorded Patient [place] Guide Expl anation Healthcare Directive 08/29/2021 022 Latest [...] Code Status Discussion: Reviewed Preferences Care Teams Product Director Relationship Specialty Start Date End Date Luciano Candelaria MD [address] [place] [address] PCP - General Family Practice 12/23/19 Tania Mike MD [address] [place] [address] Advanced Heart Failure/Transplant Card 01/05/22 Huang Brady MD [address] [facility] [address] [place] [address] Surgery - Cardiothoracic 01/05/22 Coordinators, Vad Nurse Clinician Advanced Heart Failure/Transplant Card 01/05/22 Staff, Other Clinical . 02/14/23 Laboratory--[facility] 03/21/22 Miladys Krishnamurthy Duck Operator Advanced Heart Failure/Transplant Card 03/27/22
--- OUTSIDE RECORDS SUMMARY | 2023-05-09 15:01 | XMS_ITS ---
Care Plan - [facility] Created on: May 09, 2023 HEADLINE, GREGG Tinsley : 1965 Sex: Male Author Name Unknown Address [address] [place] [phone] Phone [facility] Heart [facility] da Address [address] [place] [phone] Phone Care Team Providers Care Back Tender Paper Machine Name Role Phone Unavailable Unavailable Unavailable
== END 2023-05-09 15:00 | disposition home or self-care (01) ==
LOC: WOUND 14:59
PROVIDERS: PCP Family Medicine; Visit Provider Surgery
DX: I87.312 Chronic venous hypertension (idiopathic) with ulcer of left lower extremity (principal); L97.828 Non-pressure chronic ulcer of other part of left lower leg with other specified severity; E11.40 Type 2 diabetes mellitus with diabetic neuropathy, unspecified; Z95.811 Presence of heart assist device; Z79.4 Long term (current) use of insulin
CPT/HCPCS: 97597

== ENCOUNTER 2023-05-16 12:39 | Outpatient (CLI) | payer MEDICARE, MEDICAID, SELFPAY ==
--- OUTSIDE RECORDS SUMMARY | 2023-05-16 12:42 | XMS_ITS ---
Care Plan - [facility] Created on: May 16, 2023 HEADLINE, GREGG Tinsley : 1965 Sex: Male Author Name Unknown Address [address] [place] [phone] Phone [facility] da Address [address] [place] [phone] Phone Care Team Providers Care Senior User Experience Architect Name Role Phone Unavailable Unavailable Unavailable
--- OUTSIDE RECORDS SUMMARY | 2023-05-16 12:42 | XMS_ITS | Clinical Summary ---
Author Name Unknown Organization [employer] [facility] Address [place], [place] [address] Care Team Providers Care Manager Testing Name Role Phone Luciano Candelaria MD Primary Care Provider + Tania Mike MD Unavailable [phone] Huang Brady MD Unavailable Coordinators, Vad Unavailable [phone] Staff, Other Clinical Unavailable Unavailabl e [...] End Date Status oxygen-air delivery systems (HOME OXYGEN)Indications :Chronic obstructive pulmonary disease, unspecified COPD type (HC) Oxygen for home use. Liters per minute: 2L per nasal cannula. Frequency of use: Nocturnal;. Length of need: 99 Months. 1 Device 0 11/27/2017 Active metOLazone (ZAROXOLYN) 5 mg tabletIndications: Systolic congestive heart failure, unspecified HF chronicity (HC) Take 1 Tablet (5 mg) by mouth one time if needed. ONLY TAKE DIRECTED PER LVAD TEAM. 0 02/08/2022 Active Lantus Solostar U-100 Insulin 100 unit/mL [...] 0 Active potassium chloride (MICRO-K) 10 mEq Controlled-release capsuleIndications :LVAD (left ventricular assist device) present (HC) Take an extra 3 capsules (30 mEq) ONLY on days you take metolazone. 30 Capsule 1 05/05/2022 Active omeprazole (PRILOSEC) 20 mg Delayed-Release capsuleIndications :Chronic GERD Take 1 Capsule (20 mg) by mouth once daily before a meal. 90 Capsule 1 05/25/2022 Active dapagliflozin (Farxiga) 10 mg tabletIndications: Type 2 diabetes mellitus without complication, with long-term current use of insulin (HC),Heart failure, unspecified HF chronicity, unspecified heart failure type (HC) Take 1 Tablet (10 mg) by mouth once daily. 90 Tablet 3 06/26/2022 Active rosuvastatin (CRESTOR) 20 mg tabletIndications: Type 2 diabetes mellitus with stage 1 chronic kidney disease, with long-term current use of insulin (HC) Take 1 Tablet (20 mg) by mouth once daily. 90 Tablet 3 07/12/2022 Active ammonium lactate 12% topical (LACHYDRIN) 12 % lotionIndications: Dry skin,Fissure in skin of both feet,Type 2 diabetes mellitus with diabetic polyneuropathy, with long-term current use of insulin (HC) Apply topically to affected area(s) two times daily. 396 g 5 09/20/2022 Active spironolactone (ALDACTONE) 25 mg tabletIndications: Chronic combined systolic (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) Take 1 Tablet (25 mg) by mouth once daily. 90 Tablet 3 12/25/2022 Active traZODone (DESYREL) 100 mg tablet Take 300 mg by mouth at bedtime. 0 Active acetaminophen (TYLENOL) 325 mg tabletIndications: Pain Take 2 Tablets (650 mg) by mouth every 6 hours if needed for Pain (For Mild Pain). Max acetaminophen dose: 4000mg in 24 hrs. 0 12/31/2022 Active nicotine 21 mg/24 hr (NICODERM; HABITROL) 21 mg/24 hr patchIndications:T obacco abuse Apply 1 Patch on dry, clean, hairless skin once daily. 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 180 Tablet 3 03/05/2023 Active morphine CONTROLLED RELEASE (MS CONTIN) 60 mg tablet Take 1 Tablet (60 mg) by mouth every 12 hours. 60 Tablet 0 03/05/2023 Active prochlorperazine (COMPAZINE) 10 mg tablet Take 1 Tablet (10 mg) by mouth every 8 hours if needed for Nausea/Vomiting. 0 03/05/2023 Active amLODIPine (NORVASC) 2.5 mg tabletIndications: HTN (hypertension) Take 1 Tablet (2.5 mg) by mouth once daily. 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 180 Tablet 3 03/08/2023 Active amiodarone (CORDARONE) 200 mg tabletIndications: Atrial fibrillation status post cardioversion (HC) Take 1 tablet by mouth once daily 90 Tablet 0 04/11/2023 Active warfarin (COUMADIN) 1 mg tabletIndications: LVAD (left ventricular assist device) present (HC) Take 4 mg by mouth on Sunday/Sunday/ riday and 3 mg all other days. 300 Tablet 3 05/07/2023 Active carvediloL (Coreg) 25 mg tabletIndications: LVAD (left ventricular assist device) present (HC),Chronic combined systolic (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) Take 2 Tablets (50 mg) by mouth two times daily. 360 Tablet 3 05/14/2023 Active carvediloL (Coreg) 25 mg tabletIndications: Chronic combined systolic (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) Take 1 Tablet (25 mg) by mouth two times daily. 180 Tablet 3 09/09/2022 05/14/19 24 Discontinu ed(*Medica tion adjustment ) warfarin (COUMADIN) 1 mg tabletIndications: LVAD (left ventricular assist device) present (HC) Take 4 mg Sunday/Sunday and 3 mg all other days. 0 03/30/2023 04/20/19 24 Discontinu ed(*Medica tion adjustment ) warfarin (COUMADIN) 1 mg tabletIndications: LVAD (left ventricular assist device) present (HC) Take 4 mg by mouth on Sunday/Sunday/ riday and 3 mg all other days. 360 Tablet 3 04/20/2023 05/07/19 24 Discontinu ed(Reorder (E-cancel not sent)) Active Problems Problem Noted [...] via sternotomy, off pump on 01/05/22 as [facility] use CV Surgeon: Dr. Huang Brday Primary HF/VAD Sod Stripper: Dr. Tania Mike Primary VAD Coordinator: VAD EMERGENCY Referring MD: Leland PAD Goal <28 01/03/2021 Overview: CardioMEMs device implanted on 12/31/20. Primary design assistant is Dr. Mike . CardioMEMs is MRI [...] BMI 40-44 posted on 05/08 at 09:15 ASSISTANT COUNSEL. 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 [...] Encounters Date Type Department Care Team Description 05/14/2023 10:00 AM ASSISTANT COUNSEL Office Visit [facility] [address] [place] [address] Dale Bar MD LVAD 05/14/2023 Office Visit [facility] [address] [place] [address] Angy Pavon, PharmD Medication Management 05/14/2023 Travel 05/10/2023 10:10 AM ASSISTANT COUNSEL Orders Only [facility] [address] [place] [address] Lab, Leah Lab 05/10/2023 Telephone [facility] [address] [place] [phone] Yary Christian RN Anticoagulation (INR 2.0, clinic labs) 05/10/2023 Travel 05/07/2023 Orders Only [facility] [address] [place] [phone] Tina Tellez RN <No scans attached> 05/04/2023 Orders Only [facility] [address] [place] [phone] Jeni Godoy RN <No scans attached> 05/04/2023 Telephone [facility] [address] [place] [phone] Jeni Godoy RN Anticoagulation (INR 2.4) 04/27/2023 Telephone [facility] [address] [place] [phone] Yary Christian RN Anticoagulation (INR 2.2) 04/20/2023 Telephone [facility] [address] [place] [phone] Tina Tellez RN Anticoagulation (INR 1.8) 04/11/2023 Refill [facility] [address] [phone] Rafael Bunch MD Refill Request (Amiodarone) 04/06/2023 Telephone [facility] [address] [place] [phone] Tina Tellez RN Anticoagulation (INR 2.1) 04/05/2023 Orders Only [facility] Scanner 1 scan: (1-Ord) INCOMING RECORDS-LABS, [facility], 04/05/2023 04/05/2023 Transcribe Orders [facility] [address] [place], [place] [phone] Lilliam Tesfaye MD 03/30/2023 Telephone [facility] [address] [phone] Tesha Parr RN Anticoagulation (INR 1.8) 03/23/2023 Telephone [facility] [address] [phone] Jeni Godoy RN Anticoagulation (INR 1.8) 03/16/2023 Telephone [facility] [address] [phone] Jeni Godoy RN Anticoagulation (INR 2) 03/13/2023 Orders Only [facility] [address] [phone] Tania Mike MD <No scans attached> 03/12/2023 Telephone [facility] [address] [phone] Tina Tellez RN Anticoagulation (INR 2.0) 03/09/2023 Telephone [facility] [address] [phone] Yary Christian RN Anticoagulation (INR 2.0) 03/05/2023 1:33 PM ASSISTANT COUNSEL - 03/07/2023 3:42 PM ASSISTANT COUNSEL Hospital Encounter [facility] [address] [address] Lorri Gaines MD [place], Barry McLeod, MD HTN (hypertension) (Primary Dx); Diabetic ulcer of left talamantes (HC); LVAD (left ventricular assist device) present (HC); Atrial fibrillation status post cardioversion (HC); Chronic combined systolic (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); Unspecified open wound, left lower leg, initial encounter Discharge Disposition: Home Health 03/05/2023 10:00 AM ASSISTANT COUNSEL Office Visit [facility] [address] [phone] Dale Bar MD LVAD 03/05/2023 9:30 AM ASSISTANT COUNSEL Orders Only [facility] [address] [facility] [address] [place] [phone] Lab 03/05/2023 Office Visit [facility] [address] [facility] [address] [place] [phone] Angy Pavon, PharmD Medication Management 03/05/2023 Travel 03/02/2023 Telephone [facility] [address] [phone] Tina Tellez RN Anticoagulation (INR 2.6) 03/02/2023 Orders Only [facility] [address] [phone] Dale Bar MD <No scans attached> 02/23/2023 Telephone [facility] [address] [phone] Tina Tellez RN Anticoagulation (INR 2.0) 02/16/2023 10:50 AM CDT Orders Only [address] [phone] Lab, [facility] Lab 02/16/2023 Telephone [facility] [address] [phone] Jeni Godoy RN Anticoagulation (INR 2.1) 02/16/2023 Travel 02/13/2023 Telephone [facility] [address] [phone] Jeni Godoy RN Anticoagulation (INR 3.9) from Last 3 Months Family History Medical [...] Sign Reading Time Taken Comments Blood Pressure 151/130 05/14/2023 9:53 AM ASSISTANT COUNSEL Doppler 96, MAP 137 Pulse 85 03/07/2023 1:00 PM ASSISTANT COUNSEL Temperature 36.8 ??C (98.2 ??F) 03/07/2023 8 :50 AM ASSISTANT COUNSEL Respiratory Rate 20 03/07/2023 1:00 PM ASSISTANT COUNSEL Oxygen Saturation 95% 03/06/2023 11: 00 PM ASSISTANT COUNSEL Inhaled Oxygen Concentration - - Weight 140.2 kg (309 lb) 05/14/2023 9:5 3 AM ASSISTANT COUNSEL Height 188 cm (6' 2) 03/07/2023 6:00 AM ASSISTANT COUNSEL Body Mass Index 39.67 03/07/2023 6:00 AM ASSISTANT COUNSEL Plan of Treatment Upcoming Encounters Date Type Department Care Team (Late st Contact Info) Description 07/04/2023 Cardiac Device Check [employer] [facility] [phone] Health Maintenance Due Date Last Done Comments Hepatitis B series for Diabe chirag (1 of 3 - 3-dose series) 1965 Pneumococcal series for age 6-64 (1 of 2 - PCV) 11/04/1971 Tdap 1976 Depression screening for age 12+ 1977 Tetanus booster 1985 Zoster (shingles) series for age 50+ (1 of 2) 11/04/2015 COVID-19 vaccine series (2022-24 season) 2022 07/24/2020, 07/03/2020 Influenza for age 50-64 12/15/2022 BMI (ht and wt on same day) for age 18+ 09/21/2023 09/20/2022, 08/25/2022, 07/12/2022, Additional history exists Lipids for age 45-75 01/16/2028 01/15/2023, 10/20/2022, 10/03/2021, Additional history exists Colonoscopy through age 75 01/03/2032 01/02/2022, HIV for age 15-65 Completed 10/03/2021 Hepatitis C screening for ag e 18-79 Completed 10/03/2021 Medical Devices Implanted Type Area Bus Driver/Monitor Device Identifier Shelf Expiration Date Model / Serial / Lot Cardiomems-12/31 Implanted:12/31 (Quantity not on file) CardioMEMS [id number] - [id number] Implanted:Qty: 1 on 01/24/2017 by Richie Watkins MD at [facility] [employer] 08/11/2018 [id number] / / [id number] Description:Ventralex ST Her sebastian Patch Pump Lvad Heartmate 3 Kit - [id number], [id number] Implanted:Qty: 1 on 01/05/2022 by Huang Brady MD at [facility] N/A: Heart [employer] 02/18/2023 [id number] / [id number] , [id number] / Procedures Procedure Name Priority Date/Time Associated Diagnosis Comments CBC WITH AUTO DIFFERENTIAL Routine 05/10/2023 10:05 AM ASSISTANT COUNSEL Chronic combined systolic (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) LVAD (left ventricular assist device) present (HC) PRO-BNP Routine 05/10/2023 10:05 AM ASSISTANT COUNSEL Chronic combined systolic (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) LVAD (left ventricular assist device) present (HC) HEPATIC FUNCTION PANEL Routine 05/10/2023 10:05 AM ASSISTANT COUNSEL Chronic combined systolic (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) LVAD (left ventricular assist device) present (HC) PROTIME-INR Routine 05/10/2023 10:05 AM ASSISTANT COUNSEL Chronic combined systolic (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) LVAD (left ventricular assist device) present (HC) MAGNESIUM Routine 05/10/2023 10:05 AM ASSISTANT COUNSEL Chronic combined systolic (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) LVAD (left ventricular assist device) present (HC) CBC WITH AUTO DIFFERENTIAL Routine 05/10/2023 10:05 AM ASSISTANT COUNSEL Chronic combined systolic (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) LVAD (left ventricular assist device) present (HC) BASIC METABOLIC PANEL Routine 05/10/2023 10:05 AM ASSISTANT COUNSEL Chronic combined systolic (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) LVAD (left ventricular assist device) present (HC) SCAN CORRESP-LABORATORY RESULTS 04/05/2023 12:00 AM ASSISTANT COUNSEL GLUCOSE METER Timed 03/07/2023 1:01 PM ASSISTANT COUNSEL GLUCOSE METER Timed 03/07/2023 7:33 AM ASSISTANT COUNSEL MAGNESIUM SOLANGE 03/07/2023 4:42 AM ASSISTANT COUNSEL CBC WITH AUTO DIFFERENTIAL Early AM 03/07/2023 4:42 AM ASSISTANT COUNSEL PROTIME-INR Early AM 03/07/2023 4:42 AM ASSISTANT COUNSEL BASIC METABOLIC PANEL Early AM 03/07/2023 4:42 AM ASSISTANT COUNSEL CBC WITH AUTO DIFFERENTIAL Early AM 03/07/2023 4:42 AM ASSISTANT COUNSEL GLUCOSE METER Timed 03/06/2023 9:30 PM ASSISTANT COUNSEL SCAN-CARDIAC STRIP 03/06/2023 7: 11 PM ASSISTANT COUNSEL AEROBIC BACTERIAL CULTURE, STAIN Today 03/06/2023 6:53 PM ASSISTANT COUNSEL GLUCOSE METER Timed 03/06/2023 6:[address] LOWER EXTREMITY LEFT W Routine 03/06/2023 6:20 PM ASSISTANT COUNSEL GLUCOSE METER Timed 03/06/2023 11:22 AM ASSISTANT COUNSEL GLUCOSE METER Timed 03/06/2023 7:23 AM ASSISTANT COUNSEL MAGNESIUM SOLANGE 03/06/2023 4:54 AM ASSISTANT COUNSEL CBC WITH AUTO DIFFERENTIAL Early AM 03/06/2023 4:54 AM ASSISTANT COUNSEL PROTIME-INR Early AM 03/06/2023 4:54 AM ASSISTANT COUNSEL BASIC METABOLIC PANEL Early AM 03/06/2023 4:54 AM ASSISTANT COUNSEL CBC WITH AUTO DIFFERENTIAL Early AM 03/06/2023 4:54 AM ASSISTANT COUNSEL GLUCOSE METER Timed 03/05/2023 9:50 PM ASSISTANT COUNSEL SCAN-CARDIAC STRIP 03/05/2023 7: 29 PM ASSISTANT COUNSEL GLUCOSE METER Timed 03/05/2023 5:20 PM ASSISTANT COUNSEL PROTIME-INR Early AM 03/05/2023 3:46 PM ASSISTANT COUNSEL BASIC METABOLIC PANEL SOLANGE 03/05/2023 3:46 PM ASSISTANT COUNSEL XR TIBIA AND FIBULA 2 VIEWS LEFT PORTABLE Routine 03/05/2023 3:25 PM ASSISTANT COUNSEL COVID-19 MOLECULAR Today 03/05/2023 3: 23 PM ASSISTANT COUNSEL ECHO TTE LIMITED WO CONTRAST W COLOR W LTD DOPPLER Routine 03/05/2023 12:45 PM ASSISTANT COUNSEL LVAD (left ventricular assist device) present (HC) XR TIBIA AND FIBULA 2 VIEWS LEFT SOLANGE 03/05/2023 10:52 AM ASSISTANT COUNSEL Diabetic ulcer of left talamantes (HC) BLOOD CULTURE Routine 03/05/2023 9:40 AM ASSISTANT COUNSEL Wound infection CBC WITH AUTO DIFFERENTIAL Routine 03/05/2023 9:40 AM ASSISTANT COUNSEL Chronic combined systolic (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) BLOOD CULTURE Routine 03/05/2023 9:40 AM ASSISTANT COUNSEL Wound infection PRO-BNP Routine 03/05/2023 9:40 AM ASSISTANT COUNSEL Chronic combined systolic (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) FERRITIN Routine 03/05/2023 9:40 AM ASSISTANT COUNSEL Iron deficiency IRON PLUS IRON BINDING CAP Routine 03/05/2023 9:40 AM ASSISTANT COUNSEL Iron deficiency BASIC METABOLIC PANEL Routine 03/05/2023 9:40 AM ASSISTANT COUNSEL Chronic combined systolic (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) PROTIME-INR Routine 03/05/2023 9:40 AM ASSISTANT COUNSEL LVAD (left ventricular assist device) present (HC) HEPATIC FUNCTION PANEL Routine 03/05/2023 9:40 AM ASSISTANT COUNSEL Chronic combined systolic (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) MAGNESIUM Routine 03/05/2023 9:40 AM ASSISTANT COUNSEL Chronic combined systolic (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) CBC WITH AUTO DIFFERENTIAL Routine 03/05/2023 9:40 AM ASSISTANT COUNSEL Chronic combined systolic (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) PROTIME-INR Routine 02/16/2023 10:51 AM CDT LVAD (left ventricular assist device) present (HC) from Last 3 Months Results * (ABNORMAL) CBC WITH AUTO DIFFERENTIAL (05/10/2023 10:05 AM [facility]) Only the most recent of4 resultswithin the time period is included. WHITE BLOOD COUNT 8.4 4.5 - 11.0 thou/cu mm 05/10/2023 10:47 AM [facility] RED BLOOD COUNT 5.55 4.30 - 5.90 mil/cu mm 05/10/2023 10:47 AM [facility] HEMOGLOBIN 16.8 13.5 - 17.5 g/dL 05/10/2023 10:47 AM [facility] HEMATOCRIT 50.0 37.0 - 53.0 % 05/10/2023 10:47 AM [facility] MCV 90 80 - 100 fL 05/10/2023 10:47 AM [facility] MCH 30.3 26.0 - 34.0 pg 05/10/2023 10:47 AM [facility] MCHC 33.6 32.0 - 36.0 g/dL 05/10/2023 10:47 AM [facility] RDW 15.9(H) 11.5 - 15.5 % 05/10/2023 10:47 AM [facility] PLATELET COUNT 141 140 - 440 thou/cu mm 05/10/2023 10:47 AM [facility] MPV 10.8 6.5 - 11.0 fL 05/10/2023 10:47 AM [facility] % NEUT 62.9 % 05/10/2023 10:47 AM [facility] % LYMPH 24.4 % 05/10/2023 10:47 AM [facility] % MONO 9.6 % 05/10/2023 10:47 AM [facility] % EOS 2.4 % 05/10/2023 10:47 AM [facility] % BASO 0.7 % 05/10/2023 10:47 AM [facility] ABSOLUTE NEUTROPHILS 5.3 1.7 - 7.0 thou/cu mm 05/10/2023 10:47 AM [facility] ABSOLUTE LYMPHOCYTES 2.0 0.9 - 2.9 thou/cu mm 05/10/2023 10:47 AM [facility] ABSOLUTE MONOCYTES 0.8 <0.9 thou/cu mm 05/10/2023 10:47 AM [facility] ABSOLUTE EOSINOPHILS 0.2 <0.5 thou/cu mm 05/10/2023 10:47 AM [facility] ABSOLUTE BASOPHILS 0.1 <0.3 thou/cu mm 05/10/2023 10:47 AM [facility] Blood BLOOD SPECIMEN / Unknown Venipuncture / Unknown 05/10/2023 10:05 AM [facility] 05/10/2023 10:08 AM [facility] - 05/10/2023 10:47 AM [facility] This procedure was originally ordered at [facility]. Jeni Godoy RN HEMATOLOGY [facility] [address] [place] [phone] * (ABNORMAL) PROTIME-INR (05/10/2023 10:05 AM ASSISTANT COUNSEL) Only the most recent of6 resultswithin the time period is included. INR 2.0(H) <1.3 05/10/2023 10:43 AM [facility] PROTIME 22.3(H) 10.3 - 12.3 sec 05/10/2023 10:43 AM [facility] Blood BLOOD SPECIMEN / Unknown Venipuncture / Unknown 05/10/2023 10:05 AM ASSISTANT COUNSEL 05/10/2023 10:08 AM [facility] Narrative [facility] - 05/10/2023 10:43 AM ASSISTANT COUNSEL ?Therapeutic Range 2.0-3.0 for most anticoagulated patients [...] seconds if the patient is on UFH. Jeni Godoy RN HEMATOLOGY [facility] [address] [place] [address] * (ABNORMAL) PRO-BNP (05/10/2023 10:05 AM ASSISTANT COUNSEL) Only the most recent of2 resultswithin the time period is included. PRO-BNP 1,069(H) <125 pg/mL 05/10/2023 11:09 AM ASSISTANT COUNSEL [facility] Blood BLOOD SPECIMEN / Unknown Venipuncture / Unknown 05/10/2023 10:05 AM ASSISTANT COUNSEL 05/10/2023 10:08 AM ASSISTANT COUNSEL Narrative [facility] - 05/10/2023 11:09 AM ASSISTANT COUNSEL The following cut-points have been suggested for [...] 72% for acute congestive heart failure. ? Jeni Godoy RN SEND OUTS Performing Organization Address [facility] Co de Phone Number [facility] [address] [place] [address] * MAGNESIUM (05/10/2023 10:05 AM ASSISTANT COUNSEL) Only the most recent of4 resultswithin the time period is included. Pathologist [facility] MAGNESIUM 2.2 1.6 - 2.6 mg/dL 05/10/2023 11:36 AM [facility] Blood BLOOD SPECIMEN / Unknown Venipuncture / Unknown 05/10/2023 10:05 AM ASSISTANT COUNSEL 05/10/2023 10:08 AM ASSISTANT COUNSEL Jeni Godoy RN CHEMISTRY Performing Organization Address [facility] Co de Phone Number [facility] [address] [place] [address] * (ABNORMAL) HEPATIC FUNCTION PANEL (05/10/2023 10:05 AM ASSISTANT COUNSEL) Only the most recent of2 resultswithin the time period is included. ALBUMIN 4.0 4.0 - 4.9 g/dL 05/10/2023 11:08 AM [facility] PROTEIN,TOTAL 6.7 6.0 - 8.0 g/dL 05/10/2023 11:08 AM [facility] BILIRUBIN,TOTAL 0.7 0.0 - 1.2 mg/dL 05/10/2023 11:08 AM [facility] BILIRUBIN,DIRECT <0.2 0.0 - 0.3 mg/dL 05/10/2023 11:08 AM [facility] BILIRUBIN,INDIRE CT 05/10/2023 11:08 AM [facility] Comment:Unable to calculate, Direct Bili <0.2 ALK PHOSPHATASE 112 40 - 129 IU/L 05/10/2023 11:08 AM [facility] ALT (SGPT) 7(L) 10 - 50 IU/L 05/10/2023 11:08 AM [facility] AST (SGOT) 16 10 - 50 IU/L 05/10/2023 11:08 AM [facility] Blood BLOOD SPECIMEN / Unknown Venipuncture / Unknown 05/10/2023 10:05 AM ASSISTANT COUNSEL 05/10/2023 10:08 AM ASSISTANT COUNSEL Jeni Godoy RN CHEMISTRY [facility] [address] [place] [address] * (ABNORMAL) BASIC METABOLIC PANEL (05/10/2023 10:05 AM [facility]) Only the most recent of5 resultswithin the time period is included. SODIUM 138 136 - 145 mmol/L 05/10/2023 11:08 AM [facility] POTASSIUM 4.3 3.5 - 5.1 mmol/L 05/10/2023 11:08 AM [facility] CHLORIDE 101 98 - 107 mmol/L 05/10/2023 11:08 AM [facility] CO2,TOTAL 29 22 - 29 mmol/L 05/10/2023 11:08 AM [facility] ANION GAP 8 5 - 18 05/10/2023 11:08 AM [facility] FACILITY LABORATORY GLUCOSE 218(H) 70 - 99 mg/dL 05/10/2023 11:08 AM [facility] CALCIUM 9.4 8.6 - 10.0 mg/dL 05/10/2023 11:08 AM [facility] BUN 24(H) 6 - 20 mg/dL 05/10/2023 11:08 AM [facility] CREATININE 1.20 0.70 - 1.20 mg/dL 05/10/2023 11:08 AM [facility] BUN/CREAT RATIO 20 10 - 20 11:08 AM [facility] eGFR 71(L) >90 mL/min/1.7 3m2 05/10/2023 11:08 AM ASSISTANT COUNSEL [facility] Comment:As of 2021, eG FR is calculated by the CKD-EPI creatinine equation without race adjustment. ??eGFR can be influenced by muscle mass, exercise, and diet. ??The reported eGFR is an estimation only and is only applicable if the renal function is stable. Blood BLOOD SPECIMEN / Unknown Venipuncture / Unknown 05/10/2023 10:05 AM ASSISTANT COUNSEL 05/10/2023 10:08 AM ASSISTANT COUNSEL Jeni Godoy RN CHEMISTRY Performing Organization Address City/[facility]/ZIP Co de Phone Number [facility] [address] [place] [address] * SCAN CORRESP-LABORATORY RESULTS (04/05/2023 12:00 AM ASSISTANT COUNSEL) Scanner OTHER * (ABNORMAL) GLUCOSE METER (03/07/2023 1:01 PM ASSISTANT COUNSEL) Only the most recent of8 resultswithin the time period is included. GLUCOSE METER 153(H) 65 - 100 mg/dL 03/07/2023 1:05 PM ASSISTANT COUNSEL [facility] [employer] [facility] Blood BLOOD SPECIMEN / Unknown 03/07/2023 1:01 PM ASSISTANT COUNSEL 03/07/2023 1:05 PM ASSISTANT COUNSEL Tania Mike MD [facility]Y [facility] [address] [place] [address], * SCAN-CARDIAC STRIP (03/06/2023 7:11 PM ASSISTANT COUNSEL) Scanner OTHER * (ABNORMAL) AEROBIC BACTERIAL CULTURE, STAIN (03/06/2023 6:53 PM ASSISTANT COUNSEL) CULTURE RESULT(A) 03/09/2023 10:37 AM ASSISTANT COUNSEL [facility] [employer] LABORATORY-C ENTRAL LABORATORY CULTURE 1+ Enterobacter cloacae complex 03/09/2023 10:37 AM ASSISTANT COUNSEL [facility] Comment: May develop resistance during prolonged therapy with 3rd-generation cephalosporins as a result of derepression of AmpC beta-lactamase. ??Therefore, isolates that are initially susceptible may become resistant within 3 to 4 days after initiation of therapy. ??Testing repeat isolates may be warranted. Oral cephalosporins are also not recommended. CULTURE 2+ Mixed inga present 03/09/2023 10:37 AM ASSISTANT COUNSEL [facility] GRAM STAIN No PMNs 03/09/2023 10:37 AM ASSISTANT COUNSEL [facility] GRAM STAIN 1+ Gram Positive Cocci 03/09/2023 10:37 AM ASSISTANT COUNSEL [facility] GRAM STAIN No Epithelial cells 03/09/2023 10:37 AM ASSISTANT COUNSEL [facility] GRAM STAIN No RBCs 03/09/2023 10:37 AM ASSISTANT COUNSEL [facility] Other (Other) Non-Blood / Unknown 03/06/2023 6:53 PM ASSISTANT COUNSEL 03/06/2023 6:59 PM ASSISTANT COUNSEL Narrative [facility] - 03/09/2023 10:37 AM ASSISTANT COUNSEL Mixed inga; No Staphylococcus aureus, beta-Streptococcus, Streptococcus pneumoniae, or Pseudomonas aeruginosa isolated. Organism Antibiotic Method Susceptibility Enterobacter cloacae complex TRIMETHOPRIM/SULF <=05/04: S Enterobacter cloacae complex CEFAZOLIN >=64: R [...] MEROPENEM <=0.25: S Alla Bruner NP MICROBIOLOGY [facility] [address] [place] [address], [place] * CT LOWER EXTREMITY LEFT W (03/06/2023 6:20 PM ASSISTANT COUNSEL) Anatomical Region Laterality Modality FEMUR L, KNEE L, ANKLE L, FOOT L Computed Tomography 03/07/2023 5:40 AM ASSISTANT COUNSEL Impressions 03/07/2023 5:40 AM ASSISTANT COUNSEL 1. Infiltration of the subcutaneous tissues of [...] AM (Electronically Signed) Narrative 03/07/2023 5:40 AM ASSISTANT COUNSEL For Patients: ??As a result of the [...] of the left lower leg. 100 mL [id number] intravenous contrast was administered. COMPARISON: Radiographs 03/05/2023. [...] CT * SCAN-CARDIAC STRIP (03/05/2023 7:29 PM ASSISTANT COUNSEL) Scanner OTHER * XR TIBIA AND FIBULA 2 VIEWS LEFT PORTABLE (03/05/2023 3:25 PM ASSISTANT COUNSEL) Anatomical Region Laterality Modality [employer] phy 03/05/2023 3:38 PM ASSISTANT COUNSEL Impressions 03/05/2023 3:38 PM ASSISTANT COUNSEL No bone destruction to suggest osteomyelitis. Dictated by Jesse Noland MD @ Mar 05 2023 ??3:38PM (Electronically Signed) ?? Narrative 03/05/2023 3:38 PM ASSISTANT COUNSEL For Patients: ??As a result of the [...] IMAGING * COVID-19 MOLECULAR (03/05/2023 3:23 PM ASSISTANT COUNSEL) COVID 19 [facility] MOLECULAR Negative Negative 03/05/2023 5:18 PM ASSISTANT COUNSEL [facility] Comment:All PCR tests are brown bject to false negative result due to variability in viral load and collection technique. A negative result does not rule out a SARS-CoV-2 infection. Clinical correlation required. TESTING LABORATORY [facility] Laboratory 03/05/2023 5:18 PM ASSISTANT COUNSEL [facility] Comment:Specimen submitted t o [facility] for testing. Other SPECIMEN FROM NASOPHARYNGEAL STRUCTURE / Unknown Non-Blood / Unknown 03/05/2023 3:23 PM ASSISTANT COUNSEL 03/05/2023 3:38 PM ASSISTANT COUNSEL Narrative [facility] - 03/05/2023 5:18 PM ASSISTANT COUNSEL This test has been authorized by FDA [...] or revoked sooner. Alla Bruner NP MICROBIOLOGY [facility] LABORATORY-CENTRAL LABORATORY [address] [place] [address], [place] * ECHO TTE LIMITED WO CONTRAST W COLOR W LTD DOPPLER (03/05/2023 12:45 PM ASSISTANT COUNSEL) LVEDD 6.7 cm EJECTION FRACTION 20 - 25% Anatomical Region Laterality Modality Ultrasound 03/05/2023 12:1 6 PM ASSISTANT COUNSEL Narrative 03/05/2023 4:42 PM ASSISTANT COUNSEL ECHOCARDIOGRAM SRIRAM Tinsley HEADLINE ? Accession#: ?? [id number] : ?1965 57 years Study Date: ?? 03/05/2023 12:16:19 PM Gender: M ?BP: ? 0/0 mmHg Height: 188.00 cm ?BSA: ?2.61 m? ? ? Weight: 139.00 kg ?Tech: ? OLK ? Referring MD: TANIA MIKE Site: ? [facility] Reading Location: [facility]W OP Patient Location: [...] . This study was interpreted by an [facility] accredited facility. ??Final ?? Procedure Note Luciano Qureshi MD - 03/05/2023 ECHOCARDIOGRAM SRIRAM Tinsley HEADLINE : 1965 57 years Study Date: 03/05/2023 12:16:19 PM Gender: M BP: 0/0 mmHg Height: 188.00 cm BSA: 2.61 m? ? ? Weight: 139.00 kg Tech: [email or web address] Referring MD: TANIA MIKE Site: [facility] Reading Location: ANW OP Patient Location: [...] . This study was interpreted by an [facility] accredited facility. Final Tania Mike MD ECHO ORD * XR TIBIA AND FIBULA 2 VIEWS LEFT (03/05/2023 10:52 AM ASSISTANT COUNSEL) Anatomical Region Laterality Modality [employer] 03/05/2023 11:0 3 AM ASSISTANT COUNSEL Impressions 03/05/2023 11:03 AM ASSISTANT COUNSEL No radiographic findings of osteomyelitis. Dictated by Jesse Noland MD @ Mar 05 2023 11:03AM (Electronically Signed) ?? Narrative 03/05/2023 11:03 AM ASSISTANT COUNSEL For Patients: ??As a result of the [...] IMAGING * BLOOD CULTURE (03/05/2023 9:40 AM ASSISTANT COUNSEL) Only the most recent of2 resultswithin the time period is included. CULTURE No Growth. 03/10/2023 11:08 AM ASSISTANT COUNSEL [facility] Blood BLOOD SPECIMEN / Unknown Non-Lab Venipuncture / Unknown 03/05/2023 9:40 AM ASSISTANT COUNSEL 03/05/2023 9:56 AM ASSISTANT COUNSEL Dale Bar MD MICROBIOLOGY Performing Organization Address [facility] Co de Phone Number [facility] [address] [place] [address], * IRON PLUS IRON BINDING CAP (03/05/2023 9:40 AM ASSISTANT COUNSEL) Pathologist [facility] IRON 67 61 - 157 ug/dL 03/05/2023 10:53 AM ASSISTANT COUNSEL [facility] UIBC (UNSATURATED) 236 112 - 347 ug/dL 03/05/2023 10:53 AM ASSISTANT COUNSEL [facility] IRON BINDING CAPACITY 303 250 - 400 ug/dL 03/05/2023 10:53 AM ASSISTANT COUNSEL [facility] IRON,% SATURATION 22 14 - 50 % 03/05/2023 10:53 AM ASSISTANT COUNSEL [facility] Blood BLOOD SPECIMEN / Unknown Non-Lab Venipuncture / Unknown 03/05/2023 9:40 AM ASSISTANT COUNSEL 03/05/2023 9:57 AM ASSISTANT COUNSEL Dale Bar MD CHEMISTRY Performing Organization Address City/[facility]/ZIP Co de Phone Number [facility] [address] [place] [address], [place] * FERRITIN (03/05/2023 9:40 AM ASSISTANT COUNSEL) FERRITIN 199.0 30.0 - 400.0 ng/mL 03/05/2023 11:22 AM ASSISTANT COUNSEL [facility] AL LABORATORY Blood BLOOD SPECIMEN / Unknown Non-Lab Venipuncture / Unknown 03/05/2023 9:40 AM ASSISTANT COUNSEL 03/05/2023 9:57 AM ASSISTANT COUNSEL Dale Bar MD CHEMISTRY [facility] [address] [place] [address], from Last 3 Months Advance Directives Documents on File Type Date Recorded Patient Forms Examiner Expl anation Healthcare Directive 08/29/2021 022 Latest [...] Code Status Discussion: Reviewed Preferences Care Teams Manager Testing Relationship Specialty Start Date End Date Luciano Candelaria MD [address] [place] [address] PCP - General Family Practice 12/23/19 Tania Mike MD [address] [place] [address] Advanced Heart Failure/Transplant Card 01/05/22 Huang Brady MD [address] [place] [address] Surgery - Cardiothoracic 01/05/22 Coordinators, Vad Nurse Clinician Advanced Heart Failure/Transplant Card 01/05/22 Staff, Other Clinical . 02/14/23 Laboratory--[facility] Laboratory 03/21/22 [facility] Advanced Practice Nurse Advanced Heart Failure/Transplant Card 03/27/22
--- OUTSIDE RECORDS SUMMARY | 2023-05-16 12:42 | XMS_ITS ---
Author Name Unknown Address [address] [place] [address] [facility] da Address [address] [place] [address] Phone Care Team Providers Care Dock Supervisor Name Role Phone Unavailable Unavailable Unavailable Plan of Treatment No Plan of Treatment Recorded Assessments Includes: Assessments for all patient encounters No Assessments Recorded Medical Equipment - Implanted Devices Includes: Current and historical Devices No Medical Equipment Recorded Medications Administered Includes: Administered Medications in patient's chart No Administered Medications Recorded Results Includes: Results from 05/16/2022 through 05/16/2023 No Results Recorded For Specified Dates History [...] Relationship Effect stewart Dates 1 - MEDICARE [id number] GREGG Tinsley HEADLINE Self Clinical Notes Includes: Signed Clinical Notes starting from 03/24/2022 No Clinical Notes Recorded
== END 2023-05-16 12:40 | disposition home or self-care (01) ==
LOC: WOUND 12:40
PROVIDERS: PCP Family Medicine; Visit Provider Surgery
DX: I87.312 Chronic venous hypertension (idiopathic) with ulcer of left lower extremity (principal); E11.40 Type 2 diabetes mellitus with diabetic neuropathy, unspecified; L97.828 Non-pressure chronic ulcer of other part of left lower leg with other specified severity; I25.5 Ischemic cardiomyopathy; Z79.4 Long term (current) use of insulin
CPT/HCPCS: 97597

== ENCOUNTER 2023-05-23 14:52 | Outpatient (CLI) | payer MEDICARE, MEDICAID, SELFPAY | END 2023-05-23 14:53 | disposition home or self-care (01) | LOC: WOUND 14:52 | PROVIDERS: PCP Family Medicine; Visit Provider Surgery | DX: I87.312 Chronic venous hypertension (idiopathic) with ulcer of left lower extremity (principal); L97.828 Non-pressure chronic ulcer of other part of left lower leg with other specified severity; E11.40 Type 2 diabetes mellitus with diabetic neuropathy, unspecified; Z79.4 Long term (current) use of insulin; Z95.811 Presence of heart assist device | CPT/HCPCS: 97597 ==

== ENCOUNTER 2023-05-30 14:53 | Outpatient (CLI) | payer MEDICARE, MEDICAID, SELFPAY | END 2023-05-30 14:54 | disposition home or self-care (01) | LOC: WOUND 14:53 | PROVIDERS: PCP Family Medicine; Visit Provider Surgery | DX: I87.312 Chronic venous hypertension (idiopathic) with ulcer of left lower extremity (principal); L97.822 Non-pressure chronic ulcer of other part of left lower leg with fat layer exposed; E11.40 Type 2 diabetes mellitus with diabetic neuropathy, unspecified; Z79.4 Long term (current) use of insulin; I42.0 Dilated cardiomyopathy; Z72.0 Tobacco use | CPT/HCPCS: 97597 ==

== ENCOUNTER 2023-06-13 15:03 | Outpatient (CLI) | payer MEDICARE, MEDICAID, SELFPAY | END 2023-06-13 15:04 | disposition home or self-care (01) | LOC: WOUND 15:03 | PROVIDERS: PCP Family Medicine; Visit Provider Surgery | DX: I87.312 Chronic venous hypertension (idiopathic) with ulcer of left lower extremity (principal); L97.828 Non-pressure chronic ulcer of other part of left lower leg with other specified severity; E11.40 Type 2 diabetes mellitus with diabetic neuropathy, unspecified; Z95.811 Presence of heart assist device; Z79.4 Long term (current) use of insulin | CPT/HCPCS: G0463 ==

== ENCOUNTER 2023-08-13 14:54 | Outpatient (CLI) | payer MEDICARE, MEDICAID, SELFPAY | END 2023-08-13 14:55 | disposition home or self-care (01) | LOC: FBOREF 14:55 | PROVIDERS: PCP Family Medicine; Visit Provider Family Medicine | DX: E87.29 Other acidosis (principal) | CPT/HCPCS: 80048 ==

== ENCOUNTER 2024-05-16 11:26 | Outpatient (CLI) | payer MEDICARE, SELFPAY | END 2024-05-16 11:27 | disposition home or self-care (01) | LOC: NFLDREF 05-20 23:59 | PROVIDERS: PCP Family Medicine; Referring Provider Family Medicine; Visit Provider Family Medicine | DX: Z95.811 Presence of heart assist device (principal) | CPT/HCPCS: 85610 ==

== ENCOUNTER 2024-07-22 20:47 | Outpatient (CLI) | payer MEDICARE, SELFPAY | END 2024-07-22 20:48 | disposition home or self-care (01) | LOC: FBOREF 20:58 | PROVIDERS: PCP Family Medicine; Visit Provider Family Medicine | DX: E11.9 Type 2 diabetes mellitus without complications (principal); E78.2 Mixed hyperlipidemia; Z79.4 Long term (current) use of insulin | CPT/HCPCS: 80048; 80061; 84460 ==

== ENCOUNTER 2024-07-24 10:00 | Outpatient (CLI) | payer MEDICARE, SELFPAY | END 2024-07-24 10:01 | disposition home or self-care (01) | LOC: NFLDREF 07-28 19:53 | PROVIDERS: PCP Family Medicine; Referring Provider Family Medicine; Visit Provider Internal Medicine | DX: I50.22 Chronic systolic (congestive) heart failure (principal) | CPT/HCPCS: 84132 ==

== ENCOUNTER 2024-10-23 11:03 | Outpatient (CLI) | payer MEDICARE, SELFPAY | END 2024-10-23 11:04 | disposition home or self-care (01) | LOC: FBOREF 11:03 | PROVIDERS: PCP Family Medicine; Visit Provider Family Medicine | DX: Z95.811 Presence of heart assist device (principal) | CPT/HCPCS: 85610 ==

== ENCOUNTER 2024-12-19 09:29 | Outpatient (CLI) | payer MEDICARE, SELFPAY ==
[2024-12-19 15:25] LABS: PSA Screen* 0.16 ng/mL (0.10-4.00)
== END 2024-12-19 09:30 | disposition home or self-care (01) ==
PROVIDERS: PCP Family Medicine; Visit Provider Family Medicine
DX: Z13.9 Encounter for screening, unspecified (principal); I10 Essential (primary) hypertension; Z12.5 Encounter for screening for malignant neoplasm of prostate
CPT/HCPCS: 80048; G0103

== ENCOUNTER 2025-02-13 10:35 | Outpatient (CLI) | payer MEDICARE, MEDICAID, SELFPAY | END 2025-02-13 10:36 | disposition home or self-care (01) | LOC: NFLDREF 02-16 18:39 | PROVIDERS: PCP Family Medicine; Referring Provider Family Medicine; Visit Provider Family Medicine | DX: Z95.811 Presence of heart assist device (principal) | CPT/HCPCS: 85610 ==

== ENCOUNTER 2025-03-20 10:40 | Outpatient (CLI) | payer MEDICARE, MEDICAID, SELFPAY | END 2025-03-20 10:41 | disposition home or self-care (01) | LOC: NFLDREF 03-25 15:37 | PROVIDERS: PCP Family Medicine; Referring Provider Family Medicine; Visit Provider Family Medicine | DX: Z95.811 Presence of heart assist device (principal) | CPT/HCPCS: 85610 ==